=== PATIENT | female | born 1990 | race African-American/Black ===

== ENCOUNTER 2020-08-13 16:07 | Outpatient (REF) | payer MEDICAID, SELFPAY | END 2020-08-13 16:08 | disposition home or self-care (01) | LOC: HO.SCI 16:07 | PROVIDERS: Visit Provider Internal Medicine | DX: Z13.89 Encounter for screening for other disorder (principal) ==

== ENCOUNTER 2020-08-20 11:16 | Outpatient (REF) | payer MEDICAID, SELFPAY ==
--- NOTE | ~2020-08-20 | US_ITS ---
EXAMINATION: ULTRASOUND OF THE PELVIS CLINICAL INFORMATION: Irregular menses.. COMPARISON: None. TECHNIQUE: Transabdominal and transvaginal pelvic ultrasound. A transvaginal study was performed in addition to the transabdominal study which did not yield an adequate examination of the uterus and ovaries due to superimposed distended gas-filled loops of bowel. FINDINGS: The uterus is normal in size and appearance, measuring 11.8 x 4.5 x 5 cm longitudinally, anteroposteriorly and transversely. The endometrial stripe thickness is prominent, measuring 1.6 cm in thickness. No focal myometrial mass is seen. Nabothian cysts are noted. Additional cysts are seen in the region of the vagina, possibly Jyoti duct cyst. The ovaries bilaterally are visualized and appear normal, with the right ovary measuring 3.3 x 1.7 x 2.7 cm and the left ovary measuring 3.1 x 2.5 x 2.9 cm. Multiple small follicles noted. No adnexal mass or free fluid collection seen. US/US pelvic complete IMPRESSION: Somewhat prominent endometrial stripe. Correlate with phase of cycle. No heterogeneity. Multiple small follicles of the ovaries. Correlate for PCOS.
--- NOTE | ~2020-08-20 | US_ITS ---
EXAMINATION: ULTRASOUND OF THE PELVIS CLINICAL INFORMATION: Irregular menses.. COMPARISON: None. TECHNIQUE: Transabdominal and transvaginal pelvic ultrasound. A transvaginal study was performed in addition to the transabdominal study which did not yield an adequate examination of the uterus and ovaries due to superimposed distended gas-filled loops of bowel. FINDINGS: The uterus is normal in size and appearance, measuring 11.8 x 4.5 x 5 cm longitudinally, anteroposteriorly and transversely. The endometrial stripe thickness is prominent, measuring 1.6 cm in thickness. No focal myometrial mass is seen. Nabothian cysts are noted. Additional cysts are seen in the region of the vagina, possibly Jyoti duct cyst. The ovaries bilaterally are visualized and appear normal, with the right ovary measuring 3.3 x 1.7 x 2.7 cm and the left ovary measuring 3.1 x 2.5 x 2.9 cm. Multiple small follicles noted. No adnexal mass or free fluid collection seen. US/US transvaginal IMPRESSION: Somewhat prominent endometrial stripe. Correlate with phase of cycle. No heterogeneity. Multiple small follicles of the ovaries. Correlate for PCOS.
== END 2020-08-20 11:17 | disposition home or self-care (01) ==
LOC: HO.US 11:16
PROVIDERS: PCP Internal Medicine; Visit Provider Internal Medicine
DX: N92.1 Excessive and frequent menstruation with irregular cycle (principal)
CPT/HCPCS: 76830; 76856

== ENCOUNTER 2021-04-08 11:21 | Outpatient (REF) | payer MEDICAID, SELFPAY ==
--- NOTE | ~2021-04-08 | XR_ITS ---
EXAMINATION: XR SHOULDER, LEFT CLINICAL INFORMATION: Left shoulder pain COMPARISON: None TECHNIQUE: AP external rotation, Grashey, scapular Y, and axillary views of the left shoulder. FINDINGS: The bones and soft tissues are normal. No fracture. Glenohumeral and acromioclavicular alignment is anatomic with normal joint space. No abnormal soft tissue calcifications. Incidental note is made of a small left cervical rib. Visualized left hemithorax is unremarkable. XR/XR shoulder LT min 2V IMPRESSION: No acute or significant radiographic abnormality in the left shoulder. Small left cervical rib.
== END 2021-04-08 11:22 | disposition home or self-care (01) ==
LOC: HO.XRAY 11:21
PROVIDERS: PCP Internal Medicine; Visit Provider Internal Medicine
DX: M25.512 Pain in left shoulder (principal)
CPT/HCPCS: 73030

== ENCOUNTER 2022-08-04 05:47 | Outpatient (REF) | payer MEDICAID, SELFPAY | END 2022-08-04 05:48 | disposition home or self-care (01) | LOC: HO.HOSX 05:47 | PROVIDERS: Visit Provider Physician Assistant | DX: Z13.89 Encounter for screening for other disorder (principal) ==

== ENCOUNTER → 2022-09-08 12:34 | Outpatient (BNVA) | payer MEDICAID, SELFPAY | PROVIDERS: PCP Internal Medicine; Visit Provider Physician Assistant | DX: M75.102 Unspecified rotator cuff tear or rupture of left shoulder, not specified as traumatic (principal) | CPT/HCPCS: 99202 ==

== ENCOUNTER → 2022-10-13 14:47 | Outpatient (BNVA) | payer MEDICAID, SELFPAY | PROVIDERS: PCP Internal Medicine; Visit Provider Physician Assistant Surgical ==

== ENCOUNTER → 2022-10-19 08:34 | Outpatient (BNVA) | payer MEDICAID, SELFPAY | PROVIDERS: PCP Internal Medicine; Visit Provider Surgery ==

== ENCOUNTER 2022-10-21 10:21 | Outpatient (REF) | payer MEDICAID, SELFPAY ==
--- NOTE | ~2022-10-21 | MR_ITS ---
EXAMINATION: MR SHOULDER WITHOUT CONTRAST, LEFT CLINICAL INFORMATION: Left shoulder pain and decreased range of motion. Evaluate for rotator cuff tendon tear. COMPARISON: Left shoulder radiographs dated 04/08/2021. TECHNIQUE: Multisequence MR imaging of the left shoulder was obtained without contrast on a high-field strength scanner. FINDINGS: ROTATOR CUFF: Mildly increased T2 signal within the distal supraspinatus tendon, consistent with mild tendinosis. No measurable rotator cuff tendon tear. No muscle atrophy or fatty infiltration. BICEPS: Small amount of fluid within the proximal long head biceps tendon sheath which could represent mild tenosynovitis. No measurable tendon tear. CORACOACROMIAL ARCH: The undersurface of the acromion is minimally curved with no subacromial spur. The acromioclavicular joint is normal. Small amount of fluid and edema within the subacromial subdeltoid bursa, consistent mild bursitis. LABRUM/CAPSULE: No displaced labral tear. Mild thickening and edema of the anteroinferior joint capsule which can be seen in the setting of adhesive capsulitis. GLENOHUMERAL JOINT/MARROW: Intact articular cartilage. No acute osseous injury. Trace joint effusion. MR/MR shoulder LT wo con IMPRESSION: 1. Mild supraspinatus tendinosis without a measurable rotator cuff tendon tear. 2. Mild proximal long head biceps tenosynovitis without a measurable tendon tear. 3. Mild subacromial subdeltoid bursitis. 4. Mild thickening and edema of the anteroinferior joint capsule which can be seen in the setting of adhesive capsulitis. 5. Trace glenohumeral joint effusion.
--- NOTE | ~2022-10-21 | XR_ITS ---
EXAMINATION: XR CHEST CLINICAL INFORMATION: Morbid obesity COMPARISON: None available. TECHNIQUE: 2 views of the chest were obtained. FINDINGS: No significant abnormality is noted involving the heart, lungs, mediastinum, bony thorax or soft tissues. XR/XR chest 2V IMPRESSION: Unremarkable examination.
--- NOTE | 2022-10-21 10:27 | ECG_ITS ---
Test Reason : OBESITY Blood Pressure : / mmHG Vent. Rate : 095 BPM Atrial Rate : 095 BPM P-R Int : 134 ms QRS Dur : 074 ms QT Int : 348 ms P-R-T Axes : 062 044 018 degrees QTc Int : 437 ms Normal sinus rhythm Normal ECG No previous ECGs available Referred By: Alex Tyler Electronically Signed By:GIGI TENA MD
[2022-10-21 10:37] LABS: MANUAL DIFF FLAG NO
[2022-10-21 11:02] LABS: Basophils Percent Auto 0.2 % (0-2); Eosinophils Percent Auto 0.9 % (0-4); Hematocrit 41.4 % (37.0-47.0); Hemoglobin 13.1 g/dl (12.0-16.0); Imm Gran Abs Auto 0.01 X10*3/uL (0.00-0.03); Imm Gran Pct Auto 0.2 % (0.0-0.4); Lymphocytes Absolute Auto 1.7 X10*3/uL (1.2-4.9); Lymphocytes Percent Auto 37.1 % (20-40); Mean Corpuscular HGB Conc 31.6 g/dl (31.0-35.0); Mean Corpuscular Hemoglobin 24.5 pg (27.0-33.0); Mean Corpuscular Volume 77.4 fL (80.0-98.0); Monocytes Absolute Auto 0.4 X10*3/uL (0.1-1.2); Monocytes Percent Auto 8.4 % (2-11); Neutrophils Absolute Auto 2.4 x10*3/uL (2.0-8.3); Neutrophils Percent Auto 53.2 % (45-73); Platelet Count 271 X10*3/uL (160-400); Red Blood Count 5.35 X10*6/uL (4.20-5.50); Red Cell Distribution Width 15.6 % (11.0-16.0); White Blood Count 4.5 X10*3/uL (4.8-10.8)
[2022-10-21 11:17] LABS: Estimated Average Glucose 100 mg/dL; Hemoglobin A1c % 5.1 %
[2022-10-21 12:06] LABS: Alanine Aminotransferase 40 U/L (0-31); Albumin Level 4.5 g/dL (3.5-5.0); Alkaline Phosphatase 94 U/L (39-117); Anion Gap 13 (12-20); Aspartate Amino Transferase 28 U/L (5-31); Bilirubin Total 0.5 mg/dL (0.0-1.0); Blood Urea Nitrogen 15 mg/dL (9-16); C Reactive Protein 1.17 mg/dL (< or = 0.50); Calcium 9.6 mg/dL (8.4-10.2); Carbon Dioxide 25 mmol/L (22-29); Chloride 103 mmol/L (96-108); Cholesterol 249 mg/dL; Estimated Glomerular Filt Rate > 60; Glucose Random 81 mg/dL (60-115); HDL Cholesterol 44 mg/dL; Iron 169 mcg/dL (30-160); LDL Cholesterol Calculated 174 mg/dl; Percent Iron Saturation 42 % (15-50); Potassium 4.2 mmol/L (3.3-5.1); Sodium 137 mmol/L (135-145); Total Iron Binding Capacity 404 mcg/dL (228-428); Total Protein 7.9 g/dL (6.5-8.0); Triglycerides 157 mg/dL; Unsaturated Iron Binding 235 ug/dL
[2022-10-21 12:22] LABS: Ferritin 15 ng/mL (10-122); Folate 17.6 ng/mL (> or = 4.0); Insulin 16 uU/mL (2-29); Vitamin B12 878 pg/mL (200-900); Vitamin D 25-OH Total 41.1 ng/mL (>30)
[2022-10-24 14:18] LABS: Calcium (PTHI) 9.7 mg/dL (8.6-10.2); PTHI 48 pg/mL (16-77)
== END 2022-10-21 10:22 | disposition home or self-care (01) ==
LOC: HO.MRI 10:21
PROVIDERS: Absent Provider Surgery; PCP Internal Medicine; Visit Provider Physician Assistant
DX: M75.102 Unspecified rotator cuff tear or rupture of left shoulder, not specified as traumatic (principal); E28.2 Polycystic ovarian syndrome; E66.01 Morbid (severe) obesity due to excess calories
CPT/HCPCS: 36415; 71046; 73221; 80053; 80061; 82306; 82607; 82728; 82746; 83036; 83525; 83540; 83970; 84425; 84443; 84590; 85025; 86140; 93005

== ENCOUNTER 2022-10-31 07:53 | Outpatient (REF) | payer MEDICAID, SELFPAY ==
[2022-11-03 11:37] LABS: H Pylori Breath Test Positive (Negative)
== END 2022-10-31 07:54 | disposition home or self-care (01) ==
LOC: HO.LNP 07:53
PROVIDERS: Visit Provider Surgery
DX: E66.01 Morbid (severe) obesity due to excess calories (principal); E28.2 Polycystic ovarian syndrome
CPT/HCPCS: 83013

== ENCOUNTER 2022-10-31 09:57 | Outpatient (REF) | payer MEDICAID, SELFPAY ==
[2022-11-05 00:14] LABS: Zinc 73 mcg/dL (60-130)
[2022-11-05 08:14] LABS: Vitamin B1 9 nmol/L (8-30)
[2022-11-06 01:09] LABS: Vitamin A 42 mcg/dL (38-98)
== END 2022-10-31 09:58 | disposition home or self-care (01) ==
LOC: HO.LAB 09:57
PROVIDERS: Surgery; PCP Internal Medicine; Visit Provider Physician Assistant Surgical
DX: M75.02 Adhesive capsulitis of left shoulder (principal); E66.01 Morbid (severe) obesity due to excess calories; E28.2 Polycystic ovarian syndrome
CPT/HCPCS: 20610; 36415; 84425; 84590; 84630; 99211; 99212; J1040

== ENCOUNTER 2022-11-04 10:02 | Outpatient (REF) | payer MEDICAID, SELFPAY ==
--- NOTE | ~2022-11-04 | US_ITS ---
EXAMINATION: US COMPLETE ABDOMEN WITH LIVER ELASTOGRAPHY CLINICAL INFORMATION: Obesity COMPARISON: None available. TECHNIQUE: Real-time imaging of the abdominal viscera. Noninvasive ultrasound liver fibrosis assessment is performed using Norma ElastPQ point quantification shear wave elastography (2D-SWE) with a C5-2 MHz transducer. Multiple elastography samples are obtained. FINDINGS: PANCREAS: Not well visualized due to bowel gas ABDOMINAL AORTA: The proximal, middle, and distal aortic segments are normal in caliber. INFERIOR VENA CAVA: Visualized portions are normal. LIVER: Liver echotexture is increased. Liver is normal in size and contour. No focal lesion or intrahepatic biliary duct dilatation. The right lobe measures 16 cm in length. The left lobe measures 10.5 cm in length. Portal flow is normal/hepatopedal Shear wave liver elastography median stiffness is 1.5 m/s (reference: normal median stiffness is 1.3 m/s or less). IQR/median stiffness to assess sampling precision is 0.05 (reference: good quality data set is IQR/median stiffness of 0.15 or less). GALLBLADDER: Normal. The gallbladder is physiologically distended without evidence of stones, sludge, polyps, wall thickening or pericholecystic fluid. COMMON BILE DUCT: Normal in caliber measuring 0.3 cm in diameter. RIGHT KIDNEY: Normal. No hydronephrosis. No renal calculi or focal parenchymal lesions. The kidney measures 11.6 cm in maximum dimension. LEFT KIDNEY: Normal. No hydronephrosis. No renal calculi or focal parenchymal lesions. The kidney measures 11.5 cm in maximum dimension. SPLEEN: Normal. The spleen measures 11.4 cm in maximum dimension. FREE FLUID: None. US/US abdomen comp w elastography IMPRESSION: 1. Impression: Echogenic liver. Limited visualization of the pancreas. 2. Liver elastography: Adequate liver sampling. In the absence of other known clinical signs, rules out compensated advanced chronic liver disease. REFERENCE: Society of Radiologists in Ultrasound Liver Stiffness Thresholds (2020): LIVER STIFFNESS THRESHOLDS: *Liver Stiffness equal or less than 1.3 m/s: High probability of being normal. *Liver Stiffness less than 1.7 m/s: In the absence of other known clinical signs, rules out compensated advanced chronic liver disease. *Liver Stiffness 1.7-2.1 m/s: Suggestive of compensated advanced chronic liver disease but need further test for confirmation. *Liver Stiffness over 2.1 m/s: Rules in compensated advanced chronic liver disease. *Liver Stiffness over 2.4 m/s: Suggestive of clinically significant portal hypertension. QUALITY OF DATA SET: *IQR/Median value equal or less than 0.15 implies a quality data set. *IQR/Median value over 0.15 implies a poor quality data set. SIGNIFICANT CHANGE FROM PRIOR EXAM: Significant change if liver stiffness measurement is 10% or greater from prior exam. OTHER CONSIDERATIONS: The stage of liver fibrosis may be overestimated in the setting of acute hepatitis, liver inflammation, elevated liver function tests, hepatic vascular congestion, obstructive cholestasis, non-fasting state, and infiltrative diseases such as amyloidosis and lymphoma. In some patients with NAFLD, the liver stiffness thresholds for compensated advanced chronic liver disease may be lower. In causes other than viral hepatitis and NAFLD, liver stiffness thresholds are not well established.
== END 2022-11-04 10:03 | disposition home or self-care (01) ==
LOC: HO.US 10:02
PROVIDERS: PCP Internal Medicine; Visit Provider Surgery
DX: E66.01 Morbid (severe) obesity due to excess calories (principal); E28.2 Polycystic ovarian syndrome
CPT/HCPCS: 76705; 76981

== ENCOUNTER → 2022-11-16 14:36 | Outpatient (BNVA) | payer MEDICAID, SELFPAY | PROVIDERS: PCP Internal Medicine; Visit Provider Dietitian, Registered | DX: E66.01 Morbid (severe) obesity due to excess calories (principal); Z71.3 Dietary counseling and surveillance | CPT/HCPCS: 97802 ==

== ENCOUNTER → 2022-11-18 07:51 | Outpatient (BNVA) | payer MEDICAID, SELFPAY | PROVIDERS: PCP Internal Medicine; Visit Provider Surgery ==

== ENCOUNTER 2022-11-28 16:11 | Outpatient (AMB) | payer OTHER, SELFPAY ==
--- NOTE | 2022-11-28 16:12 | MHC.WMTHER ---
Intake Intake Visit Reasons: VIDEO BH Intake Allergies No Known Allergies Allergy (Verified 11/16/22 15:25) PFSH Medical History Anxiety Depression Insomnia Morbid obesity PCOS (polycystic ovarian syndrome) Surgical History Hx of tubal ligation Family History Mother Cancer Father No problems noted. Daughter No problems noted. Son ADHD Son No problems noted. Son No problems noted. 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 Pt reported ongoing medical issues impacting her weight and mental health, also she is currently being treated for depression. Patient sees a therapist every 3 weeks and prescriber every 6 weeks. She reported to be stable and denies any hx of Substance abuse, suicidal ideation and/or self/other-harm. PT disclosed she had a hard time in 2019 that lead her to be on a 72-hour mental health watch due to a depressive crisis , however she was not in need of higher level of care. Pt denies any Hx with emotional eating besides some cravings around the time of her period. Current scores from Binge eating sclae showed minimal risk for binge eating behavior; scores from PHQ-9 did not showed active symptoms of depression and per assessment pt seemed to be stable and mental status exam within normal limits. Pt is cleared from the mental health stand point and there is no need for f/up sessions unless PT feels she needs additional support. Presenting Concerns Referral Source WMP Provider Reason for referral Completion of behavioral health assessment as part of process for weight-loss surgery. Precipitating Event Obesity, PCOS, low energy. Living Situation Current Living Situation Rent At risk of losing current housing? No Satisfied with current living situation? Yes Comments PT lives with and 4 children. Food/Weight/Diet Expectations of change PT wants to be at her healthy weight and able to be active and have energy again. History/Relationship with food Pt reported she used to skip breakfast most of the time, tends to have her first meal around 11am. Dinner is usually style, and she usually has more than 1 carb on meals. PT reports she has always had a good relationship with food, denies any hx or concern with emotional/stress-eating besides regular sweet cravings around her period. History/Relationship with weight PT reports she was very athletic and at a healthy weight as a child/teen. After having first child, she gained some weight. But, with each she has gained weight and with diet/exercise she has was able to loss weight and being in between 150-175Lbs until 2019. In 2019 she moved here from [place] and her weight was about 180Lbs, but months after she started gaining weight and has not been able to loss it. Recently she has been diagnosed with PCOS and this has been a big contributor to her weight gain. History/Relationship with dieting Exercise, dining room tables set up attendant counseling, ketto-diet, [id number]. Binge Eating Do you frequently eat large amounts of food in short periods of time, not feeling physically hungry? No Do you feel out of control when you eat a large amount of food in a short period of time? No Do you eat large amounts of food rapidly and typically alone? No Night Eating Do you wake up at least once during the night to eat? No If you wake up in the night, do you find that it is necessary to eat something in order to fall back asleep? No Do you have little or no appetite in the morning and feel very hungry in the evening, often overeating between dinner and when you go to bed? No Social History Family history and relationship 10 years ago to the father of 3 youngest children. She has 4 children. Most of her family is in [place]. She's only child. Mom is alive, dad in 2010. She has a close relationship with her mom. 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 15, 10, 8 and 7 years old each. Developmental history and status None. Social support , children. 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 Voodoo/Spirituality Orthodoxy but doesn;t practice. Cultural/Ethnic information . From [place]. [place]. Legal Involvement and History Current or historical involvement with the legal system? None. Education Highest grade completed College degree in [employer] administration. Preferred learning style Written, Learn by doing and Visual Currently enrolled in educational program? No Interested in further educational program? Yes (Will start Master's degree upcoming fall) Educational Interests/Skills Management. 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 No Meaningful activities Family activities, read, dance, gym. Financial Situation Describe current financial situation Comfortable and Occasional struggle Financial assistance? [employer] [place] Service Service? No Mental Health and Addiction Treatment Current/Past substance abuse? No Current/Past addictive behavior concerns? No Psychiatric history PT reported she currently attends therapy every 3 weeks and sees a psych. prescriber every 2 months. She is diagnosed with depression, but she is not aware of full diagnosis. Denied any hx of SI, Self-harm/other-harm. However, reported she was in a 72 hour watch for MH risk/safety concern in November/2021. Currently, she feels stable and doing well with current meds. Medical and Physical Health Summary Additional Medical History not covered in history None reported Sexual History concerns None reported Physical exam in the last year? Yes Pain Screening Current pain? Yes Pain in the last few months? Yes Comments Frozen shoulder, painful periods. Medications Is the patient compliant with medications? Yes Does the patient have Batrlett Guardian in place? Not applicable Does the patient use complimentary health approaches? No Trauma/Abuse History History of trauma? No Questionnaires PHQ-9 Over the last 2 weeks, how often have you been bothered by any of the following problems? 1. Little interest or pleasure in doing things: not at all 2. Feeling down, depressed, or hopeless: not at all 3. Trouble falling or staying asleep, or sleeping too much: not at all 4. Feeling tired or having little energy: not at all 5. Poor appetite or overeating: not at all 6. Feeling bad about yourself - or that you are a failure or have let yourself or your family down: not at all 7. Trouble concentrating on things, such as reading the newspaper or watching television: not at all 8. Moving or speaking so slowly that other people could have noticed. Or the opposite - being so fidgety or restless that you have been moving around a lot more than usual: not at all 9. Thoughts that you would be better off or of hurting yourself in some way: not at all Total score: 0 Depression Screening Interpretation: Negative Source: Developed by Drs. José Luis Edgar, Etelvina Vee, Luis Dodd and colleagues, with an educational krzysztof from [employer]. Binge Eating Scale Group 1 A. I don't feel self-conscious about my wt. or body size when I'm with others. B. I feel concerned about how I look to others, but it normally does not make me fell disappointed with myself C. I do get self-conscious about my appearance and wt. which makes me feel disappointed in myself. D. I feel very self-conscious about my wt. and frequently I feel intense shame and disgust for myself. I try to avoid social contacts because of my self-consciousness. Response Group 1: C Group 2 A. I don't have any difficulty eating slowly in the proper manner. B. Although I seem to gobble down foods, I don't end up feeling stuffed because of eating to much. C. At times, I tend to eat quickly and then, I feel uncomfortably full afterwards. D. I have the habit of bolting down my food, without really chewing it. When this happens I usually feel uncomfortably stuffed because I've eaten to much. Response Group 2: A Group 3 A. I feel capable to control my eating urges when I want to. B. I feel like I have failed to control my eating more than the average person. C. I feel utterly helpless when it comes to feeling in control of my eating urges. D. Because I feel so helpless about controlling my eating I have become very desperate about trying to get control. Response Group 3: B Group 4 A. I don't have the habit of eating when I'm bored. B. I sometimes eat when I'm bored, but often I'm able to get busy and get my mind off food. C. I have a regular habit of eating when I'm bored, but occasionally, I can use some other activity to get my mind off eating. D. I have a strong habit of eating when I'm bored. Nothing seems to help me breath the habit. Response Group 4: B Group 5 A. I'm usually physically hungry when I eat something. B. Occasionally, I eat something on impulse even though I really am not hungry. C. I have the regular habit of eating foods, that I might not really enjoy, to satisfy a hungry feeling even though physically, I don't need the food. D. Although I'm not physically hungry, I get a hungry feeling in my mouth that only seems to be satisfied when I eat a food, like sandwich, that fills my mouth. Sometimes, when I eat the food to satisfy my mouth hunger, I then spit the food out so I won't gain weight. Response Group 5: A Group 6 A. I don't feel any guilt or self-hate after I overeat. B. After I overeat, occasionally I feel guilt or self-hate. C. Almost all the time I experience strong guilt or self-hate after I overeat. Response Group 6: C Group 7 A. I don't lose total control of my eating when dieting even after periods when I overeat. B. Sometimes when I eat a forbidden food on a diet, I feel like I blew it and eat even more. C. Frequently, I have the habit of saying to myself, I've blown it now, why not go all the way, when I overeat on a diet. When that happens I eat more. D. I have a regular habit of starting a strict diets for myself but I break the diets by going on an eating binge. My life seems to be either a feast or famine. Response Group 7: A Group 8 A. I rarely eat so much food that I feel uncomfortably stuffed afterwards. B. Usually about once a month, I each such a quantity of food, I end up feeling very stuffed. C. I have regular periods during the month when I eat large amounts of food, either at mealtime or at snacks. D. I eat so much food that I regularly feel quite uncomfortable after eating and sometimes a bit nauseous. Response Group 8: B Group 9 A. My level of calorie intake does not go up very high or go down very low on a regular basis. B. Sometimes after I overeat, I will try to reduce my caloric intake to almost nothing to compensate for the excess calories I've eaten. C. I have a regular habit of overeating during the night. It seems that my routine is not to be hungry in the morning but overeat in the evening. D. In my adult years, I have had week-long periods where I practically starve myself. This follows periods when I overeat. It seems I live a life of either feast or famine. Response Group 9: C Group 10 A. I usually am able to stop eating when I want to. I know when enough is enough. B. Every so often, I experience a compulsion to eat which I can't seem to control. C. Frequently, I experience strong urges to eat which I seem unable to control, but at other times I can control my eating urges. D. I feel incapable of controlling urges to eat. I have a fear of not being able to stop eating voluntarily. Response Group 10: A Group 11 A. I don't have any problem stopping eating when I feel full. B. I usually can stop eating when I feel full but occasionally overeat leaving me feeling uncomfortably stuffed. C. I have a problem stopping eating once I start and usually I feel uncomfortably stuffed after I eat a meal. D. Because I have a problem not being able to stop eating when I want, I sometimes have to induce vomiting to relieve my stuffed feeling. Response Group 11: B Group 12 A. I seem to eat just as much when I'm with others, Family social gatherings as when I'm by myself. B. Sometimes, when I'm with other persons, I don't eat as much as I want to eat because I'm self-conscious about my eating. C. Frequently, I eat only a small amount of food when others are present, because I'm very embarrassed about my eating. D. I feel so ashamed about overeating that I pick times to overeat when I know no one will see me. I feel like a closet eater. Response Group 12: A Group 13 A. I eat three meals a day with only an occasional between meal snack. B. I eat 3 meals a day, but I also normally snack between meals. C. When I am snacking heavily, I get in the habit of skipping regular meals. D. There are regular periods when I seem to be continually eating, with no planned meals. Response Group 13: C Group 14 A. I don't think much about trying to control unwanted eating urges. B. At least some of the time, I feel my thoughts are pre-occupied with trying to control my eating urges. C. I feel that frequently I spend much time thinking about how much I ate or about trying not to eat anymore. D. It seems to me that most of my waking hours are pre-occupied by thoughts about eating or not eating. I feel like I'm constantly struggling not to eat. Response Group 14: A Group 15 A. I don't think about food a great deal. B. I have strong craving for food but they last only for brief periods of time. C. I have days when I can't seem to think about anything else but food. D. Most of my days seem to be pre-occupied with thoughts about food. I feel like I live to eat. Response Group 15: B Group 16 A. I usually know whether or not I'm physically hungry. I take the right portion of food to satisfy me. B. Occasionally, I feel uncertain about knowing whether or not I'm physically hungry. A these times it's hard to know how much food I should take to satisfy me. C. Even though I might know how many calories I should eat, I don't have any idea what is a normal amount of food for me. 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 Client is cleared and there is no need for follow up. Clinician has advised client about available resources if ever in need to access additional support and has encourage client to participate in post-op groups. Telehealth Telehealth Location of provider rendering services: other (Home office. [place], [place] Location of patient: address on file Patient Identification confirmed using: Name, : Yes Telehealth method: video Patient verbally consented to treatment: Yes Patient verbally consented to billing insurance company: Yes Patient informed of any privacy concerns related to visit: Yes Minutes spent on Phone/Video with Pt.: 60 Coding Level of Care Code New Pt Tele Psy Diag Eval (43561) Patient Type New Diagnoses Depression F33.9 Depression Type: major depressive disorder Major depression recurrence: recurrent Active/Remission status: remission status unspecified Time Spent (min) 60
== END 2022-11-28 18:07 | disposition home or self-care (01) ==
LOC: HO.HBST 16:11
PROVIDERS: PCP Internal Medicine; Visit Provider Counselor Mental Health
DX: F33.2 Major depressive disorder, recurrent severe without psychotic features (principal)
CPT/HCPCS: 90837

== ENCOUNTER → 2022-11-28 16:11 | Outpatient (BNVA) | payer MEDICAID, SELFPAY | PROVIDERS: PCP Internal Medicine; Visit Provider Counselor Mental Health ==

== ENCOUNTER → 2022-12-09 08:03 | Outpatient (BNVA) | payer MEDICAID, SELFPAY | PROVIDERS: PCP Internal Medicine; Visit Provider Physician Assistant Surgical | DX: Z11.0 Encounter for screening for intestinal infectious diseases (principal) | CPT/HCPCS: 99211 ==

== ENCOUNTER 2022-12-15 10:59 | Outpatient (AMB) | payer MEDICAID, SELFPAY ==
--- NOTE | 2022-12-15 10:38 | A.OFFVIS_ITS ---
Intake VS Expanded 12/15/22 10:40 Height 5 ft 1 in Weight 202 lb 9.6 oz BMI 38.3 Intake Visit Reasons: VIDEO f/u SWL Cyber Incident Handler Required: No Allergies No Known Allergies Allergy (Verified 11/16/22 15:25) Medication List - Last Reconciled 12/15/22 by CIRA Hooper cholecalciferol (vitamin D3) 50 mcg PO DAILY drospirenone-ethinyl estradiol 3-0.02 mg (Yeimy (28)) 1 tab PO QAM ferrous sulfate 325 mg PO Q OTHER DAY metformin ER 500 mg PO BID mirtazapine 7.5 - 15 mg PO BEDTIME PRN venlafaxine ER 75 mg PO QAM HPI HPI Comments History of Present Illness Details 32 yo female returns for Pre-Op care Initial weight on 10/19/22 was 214 pounds and a BMI on 40.4 Weight today is 202.6 pound with a BMI of 38.3 Weight loss 11.4 pounds 5.3 % TBWL. She is undergoing PT for a left shoulder adhesive capsulitis. She states there have been a few days of challenging meal plan due to double shifts at work. Meal plan: one Orgain shake (QUARTER scoop in 8oz almond milk), one more Orgain protein shake (HALF scoop in 8oz low fat unsweetened almond milk each) at 7am-9am and 10am-12pm, 2 Zone Perfect protein bars at 1pm-3pm, and 4pm-6pm, dinner at 7pm (8 forks of protein and 8 forks of salad/vegetables) and one more protein bar after dinner at 8pm-10pm exercise plan: treadmill, 4 days per week, speed 3 with incline 2-7, 480-510 calories. [facility] Medical History Anxiety Depression Insomnia Morbid obesity PCOS (polycystic ovarian syndrome) Surgical History Hx of tubal ligation Family History Mother Cancer Father No problems noted. Daughter No problems noted. Son ADHD Son No problems noted. Son No problems noted. Social History Alcohol intake: current Alcohol intake frequency: holidays/special occasions only Patient Tobacco Use Status: Never used Tobacco Current occupational status: employed Current occupation: [employer] Review of Systems Const All systems reviewed & are unremarkable except as noted in HPI and below Assessment & Plan Assessment & Plan (1) Obesity: Code(s): E66.9 - Obesity, unspecified Plan: Encouraged to increase exercise by one day Change meal plan to one Orgain shake (QUARTER scoop in 8oz almond milk), one more Orgain protein shake (HALF scoop in 8oz low fat unsweetened almond milk each) at 7am-9am and 10am-12pm, 2 Zone Perfect protein bars at 1pm-3pm, and 4pm-6pm, dinner at 7pm (8 forks of protein and 8 forks of salad/vegetables) Reminded of upcoming appointments (2) H. pylori infection: Code(s): A04.8 - Other specified bacterial intestinal infections Plan: Treated Retested 12/09/22 - Negative Telehealth Telehealth Location of provider rendering services: practice address Location of patient: address on file Patient Identification confirmed using: Name, : Yes Telehealth method: video Patient verbally consented to treatment: Yes Patient verbally consented to billing insurance company: Yes Patient informed of any privacy concerns related to visit: Yes Minutes spent on Phone/Video with Pt.: 15 Coding Level of Care Code Tele Est Pt Level 3 (43607) Diagnoses Obesity E66.9 H. pylori infection A04.8 Time Spent (min) 20
[2022-12-15 10:40] VITALS: BMI 38.3
== END 2022-12-15 11:00 | disposition home or self-care (01) ==
LOC: HO.HBS 10:59
PROVIDERS: PCP Internal Medicine; Visit Provider Physician Assistant Surgical
DX: E66.9 Obesity, unspecified (principal); A04.8 Other specified bacterial intestinal infections
CPT/HCPCS: 99213

== ENCOUNTER → 2022-12-15 10:59 | Outpatient (BNVA) | payer MEDICAID, SELFPAY | PROVIDERS: PCP Internal Medicine; Visit Provider Physician Assistant Surgical | DX: E66.9 Obesity, unspecified (principal); A04.8 Other specified bacterial intestinal infections; Z68.38 Body mass index [BMI] 38.0-38.9, adult | CPT/HCPCS: 99213 ==

== ENCOUNTER 2022-12-20 07:00 | Outpatient (RCR) | payer MEDICAID, SELFPAY ==
--- NOTE | 2022-12-02 13:16 | MHC.PT.EP ---
[facility] [place] Office [place] Office [place] Office [address] [phone] F: [phone] F: [phone] F: [phone] F: [phone] Physical Therapy Plan of Care Date of Evaluation: Date of Surgery: Diagnosis: ADHESIVE CAPSULITIS LEFT SHOULDER Assessment: 32 YO FEMALE REF TO PT FOR LEFT SH ADHESIVE CAPSULITIS, PROGRESSIVE Lt SH PAIN EXACERB AFTER SUSTAINED POSITIONING FOR A TATTOO IN 2020. 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 HER SXS ARE WORSE AT NIGHT, WITH LIFTING OBJECTS, INCR USE OF LEFT UE W ADLs, AND REACHING POSTERIORLY. OBJECTIVE FINDINGS INCLUDE: MILD AROM DEFICITS Lt SH, DECR POSTURAL AWARENESS, END RANGE ALDO SH TIGHTNESS , DECR POST RC/ SCAP MM STRENGTH, AND (+) PAIN AND TISSUE TENSION ALDO UT/ Lt POST RC AND CERV PS MM. FUNCTIONALLY, Pt HAS DIFFIC SLEEPING, W ADLs / WORK TASKS REQ CARRYING OR INCR EFFORT W LEFT UE. Pt WOULD BENEFIT FROM PT TO ADDRESS THE ABOVE FINDINGS , PAIN MGMT, AND DEV A HEP/ SELF-SX MGMT PROGRAM. Frequency and Duration: The patient will be seen 2 x WK x 5 WKS Short Term Goals: *Pt'S Lt SH PAIN DECR TO 2-3/10 W REG ADLs *Pt INDEP SELF-CORRECT POSTURE TO REDUCE SH MECH STRESS *Pt DEMON IMPROVED MID/LOWER TRAP/ POST RC/SCAP MM ACTIV Group Home Goals: *Pt INDEP HEP PROGR AND SELF-SX MGMT STRATEGIES FOR Lt SH Pt ABLE TO RESUME REG ADLs , IMPROVED SPADI SCORE (99/130 AT EVAL) *Pt ACHIEVE WFL STRENGTH AND AROM IN Lt SH COMPLEX Treatment Plan: Modalities to reduce pain, spasms and effusion. Manual therapy to restore motion and function. Therapeutic exercise to improve strength and flexibility. Neuromuscular re-education for posture and balance. Therapeutic activities to return to functional activities of daily living. Electronically signed by: ROSCOE LANDERS,PT Please sign and return to therapist. Thank you for your referral.
[2022-12-10 13:18] LABS: H Pylori Breath Test Negative (Negative)
--- NOTE | 2023-03-20 08:45 | MHC.PT.DC ---
[facility] [place] Office [place] Office [place] Office [address] Matt Goode 140 [facility] [phone] F: [phone] F: [phone] F: [phone] F: [phone] Physical Therapy Discharge Report Diagnosis: ADHESIVE CAPSULITIS LEFT SHOULDER Date of Surgery: Date of Evaluation: 12/02/22 Date of Discharge: 03/20/23 Treatments to Date: 6 Cancellations to Date: 2 No Shows to Date: 3 Discharge Status: Improved Function Patient Elected to Stop Visit Non-compliance Discharge Summary: THE Pt DEMON IMPROVED POSTURAL AWARENESS AND ABILITY TO SELF-CORRECT. SHE HAS A HEP TO ADDRESS HER LEFT SH SXS - SHE DID MAKE SOME PROGRESS, HOWEVER, DUE TO INCONSISTENT ATTENDANCE, A FORMAL REASSESSMENT WAS NOT PERFORMED. Electronically signed by: ROSCOE LANDERS,PT Please sign and return to therapist. Thank you for your referral.
== END 2023-03-20 08:44 | disposition home or self-care (01) ==
LOC: HO.PT 07:00
PROVIDERS: Physician Assistant Surgical; PCP Internal Medicine; Visit Provider Physician Assistant
DX: M75.02 Adhesive capsulitis of left shoulder (principal)
CPT/HCPCS: 36415; 83013; 97035; 97110; 97140; 97162; 97530

== ENCOUNTER 2023-01-06 08:10 | Outpatient (AMB) | payer MEDICAID, SELFPAY ==
--- NOTE | 2023-01-06 09:59 | A.OFFVIS_ITS ---
Intake VS Expanded 01/06/23 10:05 Height 5 ft 1 in Weight 209 lb 6 oz BMI 39.6 Body Fat 71 Body Fat Percentage 33.9 Free Fat Mass 138.6 Visceral Mass 21 Water Mass 95.1 BMR 1,737 Intake Visit Reasons: TV Follow Up SWL Allergies No Known Allergies Allergy (Verified 11/16/22 15:25) HPI TV Follow Up SWL HPI Details Start time: 9.51am, End time: 10.11am ?I spent 15 minutes speaking with the patient on the phone plus an additional 5 minutes reviewing and updating records for a total of 20 minutes HPI Comments History of Present Illness Details Overall weight loss: 4.4lbs, or 2.06% TBWL Is re-starting one Orgain protein shake (1/2 scoop in 8oz almond milk), one Orgain shake (1 scoop in 8oz almond milk), 2 Zone Perfect protein bars and one meal (8 forks of protein and 8 forks of salad or vegetables) Exercise: Will re-start the Gym tomorrow doing the treadmill (speed: 3.0, incline: 2-8) PFSH Medical History Anxiety Depression Insomnia Morbid obesity PCOS (polycystic ovarian syndrome) Surgical History Hx of tubal ligation Family History Mother Cancer Father No problems noted. Daughter No problems noted. Son ADHD Son No problems noted. Son No problems noted. 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 Continue present nutritional plan of one Orgain protein shake (1/2 scoop in 8oz almond milk), one Orgain shake (1 scoop in 8oz almond milk), 2 Zone Perfect protein bars and one meal (8 forks of protein and 8 forks of salad or vegetables) 2. Exercise: Continue the treadmill (speed: 3.0, incline: 2-8) for 500 calories per work-out, 5 days per week 3. Continue to send me weight measurements weekly on (2) BMI 39.0-39.9,adult: Code(s): Z68.39 - Body mass index [BMI] 39.0-39.9, adult Telehealth Telehealth Location of provider rendering services: practice address Location of patient: address on file Patient Identification confirmed using: Name, : Yes Telehealth method: voice only Patient verbally consented to treatment: Yes Patient verbally consented to billing insurance company: Yes Patient informed of any privacy concerns related to visit: Yes Minutes spent on Phone/Video with Pt.: 20 Coding Level of Care Code Tele Est Pt Level 3 (63565) Diagnoses Obesity E66.9 BMI 39.0-39.9,adult Z68.39 Time Spent (min) 20
[2023-01-06 10:05] VITALS: BMI 39.6
== END 2023-01-06 10:11 | disposition home or self-care (01) ==
LOC: HO.HBS 08:10
PROVIDERS: PCP Internal Medicine; Visit Provider Surgery
DX: E66.9 Obesity, unspecified (principal); Z68.39 Body mass index [BMI] 39.0-39.9, adult
CPT/HCPCS: 99213

== ENCOUNTER → 2023-01-06 08:10 | Outpatient (BNVA) | payer MEDICAID, SELFPAY | PROVIDERS: PCP Internal Medicine; Visit Provider Surgery ==

== ENCOUNTER 2023-01-11 08:19 | Outpatient (REF) | payer MEDICAID, SELFPAY ==
--- NOTE | ~2023-01-11 | FL_ITS ---
PROCEDURE: XR FLUOROSCOPY UPPER GI WITH AIR CLINICAL INFORMATION: Obesity. COMPARISON: None available. TECHNIQUE: Air-contrast upper GI examination. FINDINGS: Patient swallowed a combination of thin and thick barium and half-inch diameter barium tablet as well as effervescent crystals. There is normal apposition of the vocal cords while saying E. There is normal elevation of the soft palate while saying candy. Patient swallowed thin and thick barium and half-inch diameter barium tablet without difficulty. No nasopharyngeal reflux or tracheal aspiration identified. There is normal esophageal motility present. No persistent stricture is seen. No mucosal abnormality is noted. No hiatal hernia. There is mild gastroesophageal reflux within the distal third of the esophagus which cleared rapidly. The stomach demonstrates normal distensibility without abnormal mass or ulceration. There is no delay in gastric emptying. The duodenal bulb and sweep appeared unremarkable. FLUOROSCOPY TIME: 1.4 minutes DOSE AREA PRODUCT: 17.466 Gy-cm2 (sanderson-centimeter squared) FL/FL upper GI w air IMPRESSION: Mild transient gastroesophageal reflux within the distal third of the esophagus. Otherwise unremarkable air-contrast upper GI examination.
== END 2023-01-11 08:20 | disposition home or self-care (01) ==
LOC: HO.XRAY 08:19
PROVIDERS: PCP Internal Medicine; Visit Provider Surgery
DX: E66.01 Morbid (severe) obesity due to excess calories (principal); E28.2 Polycystic ovarian syndrome
CPT/HCPCS: 74246

== ENCOUNTER → 2023-01-11 08:21 | Outpatient (BNV) | payer MEDICAID, SELFPAY | PROVIDERS: PCP Internal Medicine; Visit Provider Radiology Diagnostic Radiology | DX: E66.01 Morbid (severe) obesity due to excess calories (principal); Z68.39 Body mass index [BMI] 39.0-39.9, adult; Z01.818 Encounter for other preprocedural examination | CPT/HCPCS: 74246 ==

== ENCOUNTER 2023-01-30 08:03 | Outpatient (AMB) | payer MEDICAID, SELFPAY ==
--- NOTE | 2023-01-30 08:41 | A.OFFVIS_ITS ---
Intake VS Expanded 01/30/23 08:51 Height 5 ft 1 in Weight 203 lb 8 oz BMI 38.4 Body Fat 66.8 Body Fat Percentage 32.8 Free Fat Mass 136.8 Visceral Mass 20 Water Mass 93.9 BMR 1,698 Intake Visit Reasons: TV Follow Up SWL Allergies No Known Allergies Allergy (Verified 11/16/22 15:25) HPI TV Follow Up SWL HPI Details Start time: 8.40am, End time: 9am ?I spent 15 minutes speaking with the patient on the phone plus an additional 5 minutes reviewing and updating records for a total of 20 minutes HPI Comments History of Present Illness Details Overall weight loss: 10.2lbs, or 4.77% TBWL Is doing 2 Orgain protein shakes (1 scoop each in 8oz almond milk), 2 Zone Perfect protein bars and one meal (8 forks of protein and 8 forks of salad or vegetables) Exercise: is doing treadmill (incline 2-8, speed: 3.0mph) for 500 calories x 5 days per week PFSH Medical History Anxiety Depression Insomnia Morbid obesity PCOS (polycystic ovarian syndrome) Surgical History Hx of tubal ligation Family History Mother Cancer Father No problems noted. Daughter No problems noted. Son ADHD Son No problems noted. Son No problems noted. 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 Plan for lap sleeve gastrectomy including upper GI endoscopy. All tests has been completed and reviewed and the patient is cleared for the surgery. ?If diaphragmatic or ventral hernias are present at time of surgery, these will be repaired laparoscopically as well. Risks and complications were discussed in detail including possible conversion to an open procedure, anastomotic leak, bleeding requiring transfusion, small bowel obstruction, , DVT and pulmonary embolism, cardiac, or pulmonary complications, as intermediate complications such as anastomotic ulcer, insufficient weight loss and vitamin deficiencies. I emphasized the importance of close follow-up, adherence to instructions and good communication. So far she has proven to be an excellent communicator and very compliant with all our directions accomplishing a great weight loss. I believe that she is an excellent candidate and she is ready. 2. Change nutritional plan to one Orgain protein shake (HALF scoop each in 8oz almond milk), another Orgain shake with ONE scoop in 8oz almond milk, 2 Zone Perfect protein bars and one meal (8 forks of protein and 8 forks of salad or vegetables) 3. Exercise: until your thigh muscles feel better, please start stationary bike at a resistance level of 2.0 Increase level by 1.0 every 3 min to a max level of 8.0. Stay at this level for 3 min and then return to level 2.0 and repeat same steps until 400 calories are burned, 5 days per week. Velocity target is 12mph and heart rate is 145 bpm. 4. Once your thigh muscles heal, re-start the treadmil (incline 2-8, speed: 3.0mph) for 500 calories x 5 days per week 5. Send me weight measurements weekly on Mondays Telehealth Telehealth Location of provider rendering services: practice address Location of patient: address on file Patient Identification confirmed using: Name, : Yes Telehealth method: voice only Patient verbally consented to treatment: Yes Patient verbally consented to billing insurance company: Yes Patient informed of any privacy concerns related to visit: Yes Minutes spent on Phone/Video with Pt.: 20 Coding Level of Care Code Tele Est Pt Level 3 (14032) Time Spent (min) 20
[2023-01-30 08:51] VITALS: BMI 38.4
== END 2023-01-30 09:00 | disposition home or self-care (01) ==
PROVIDERS: PCP Internal Medicine; Visit Provider Surgery
DX: E66.9 Obesity, unspecified (principal); Z68.38 Body mass index [BMI] 38.0-38.9, adult
CPT/HCPCS: 99213

== ENCOUNTER → 2023-01-30 08:03 | Outpatient (BNVA) | payer MEDICAID, SELFPAY | PROVIDERS: PCP Internal Medicine; Visit Provider Surgery ==

== ENCOUNTER 2023-03-03 10:35 | Outpatient (AMB) | payer MEDICAID, SELFPAY ==
--- NOTE | 2023-03-03 12:21 | MHC.OFFVISWM ---
Intake VS Expanded 03/03/23 12:28 Height 5 ft 1 in Weight 196 lb 2 oz BMI 37.1 Body Fat % 31.5 Body Fat Mass 61.8 Fat Free Mass 134.4 Visceral Fat Rating 19 Body Water % 47 Body Water Mass 92.2 Basal Metabolic Rate/Score 1,683 Intake Visit Reasons: TV Pre Op LSG 03/16/23 Allergies No Known Allergies Allergy (Verified 03/03/23 12:22) Medication List - Last Reconciled 03/03/23 by Alex Tyler MD cholecalciferol (vitamin D3) 50 mcg PO DAILY drospirenone-ethinyl estradiol 3-0.02 mg (Yeimy (28)) 1 tab PO QAM ferrous sulfate 325 mg PO Q OTHER DAY metformin ER 500 mg PO BID mirtazapine 7.5 - 15 mg PO BEDTIME PRN ondansetron 4 mg PO Q6H PRN pantoprazole 40 mg PO DAILY polyethylene glycol 3350 (Miralax) 17 grams PO DAILY sucralfate 10 mL PO BID venlafaxine ER 75 mg PO QAM HPI TV Pre Op LSG 03/16/23 HPI Details Start time: 12.18PM, End time: 12.38PM ?I spent 15 minutes speaking with the patient on the phone plus an additional 5 minutes reviewing and updating records for a total of 20 minutes HPI Comments History of Present Illness Details Overall weight loss: 17.8 lbs, or 8.32% TBWL Is doing 2 Orgain protein shakes (1 scoop each in 8oz almond milk), 2 Zone Perfect protein bars and one meal (8 forks of protein and 8 forks of salad or vegetables) Exercise: treadmill for 5 days per week for 500 calories each time [facility] Medical History Anxiety Depression Insomnia Morbid obesity PCOS (polycystic ovarian syndrome) Surgical History Hx of tubal ligation Family History Mother Cancer Father No problems noted. Daughter No problems noted. Son ADHD Son No problems noted. Son No problems noted. 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 Plan for lap sleeve gastrectomy including upper GI endoscopy. All tests has been completed and reviewed and the patient is cleared for the surgery. ?If diaphragmatic or ventral hernias are present at time of surgery, these will be repaired laparoscopically as well. Risks and complications were discussed in detail including possible conversion to an open procedure, anastomotic leak, bleeding requiring transfusion, small bowel obstruction, , DVT and pulmonary embolism, cardiac, or pulmonary complications, as superintendent container terminal complications such as anastomotic ulcer, insufficient weight loss and vitamin deficiencies. I emphasized the importance of close follow-up, adherence to instructions and good communication. So far she has proven to be an excellent communicator and very compliant with all our directions accomplishing a great weight loss. I believe that she is an excellent candidate and she is ready. 2. Preop prescriptions were provided and explained the purpose of each one. Need to be purchased preop. Start Pantoprazole now as you get it from the pharmacy, 1 pill per day. Sucralfate and Zofran are for after surgery as needed. 3. Bowel prep: please do 7 packets ?of Miralax mixing each one with a an 8oz glass of water, crystal light, gatorade zero, or propel ?on 03/14/23 and the same amount on 03/15/23. Continue the protein shakes during? the bowel prep. 4. Needs to purchase 1oz medicine cups . 5. Needs to purchase Children's liquid Tylenol for postop pain control. 6. Avoid aspirin, motrin, Advil, Aleve, Ibuprofen, Naproxyn. Tylenol is OK. 7. She needs to purchase the Celebrate 4:1 protein shakes from the hospital's gift shop. 8. Will do basic preop blood work-up any day between Monday04/25/22 and Monday04/29/22 fasting for 12 hours and is scheduled to see the Anesthesiologist prior to the day of surgery. 9. Importance of adherence to postop folllow-up and recommendations was underscored and she understands that. 10. Stop food and bars as of Monday03/05/23 and continue with 3 Orgain protein shakes (ONE scoop in 8oz almond milk) at 7am-9am, 10am-12pm and 1pm-3pm and two more Orgain protein shakes with TWO scoops in 8oz of almond milk at 4pm-6pm and 7pm-9pm 11. No soups, broths or V8 12. The patient's?medical?history has been reviewed and they are considered low risk for post op DVT and therefore DVT prophylaxis is not considered necessary. Travel after surgery was reviewed. The patient has not disclosed any travel plans during the first 30 days after surgery and they have been advised that within the first 30 days after surgery any bus, plane, train or car travel over 2 hours in duration is contraindicated due to the possibility of developing blood clots from immobility. Any travel, needs to include periods of ambulation of 10 minutes in duration every 2 hours.? Patient was instructed to discuss any plans for travel during this period with their bariatric surgeon.? 13. Please take at the day of surgery the following medications: NONE 14. Stop any control pills and don't use them for one month after surgery 15. Absolutely no smoking or vaping, or marijuana until the surgery and for at least the first 4 weeks. Only nicotine patches are allowed. 16. Send me weight measurements on Mondays02/04/23 and 02/11/23 and then on 02/14/23 on the day of surgery before you go to the hospital. 17. Avoid any steroids by mouth for any reason. Let me know if someone prescribes them to you (2) BMI 37.0-37.9, adult: Code(s): Z68.37 - Body mass index [BMI] 37.0-37.9, adult Telehealth Telehealth Location of provider rendering services: practice address Location of patient: address on file Patient Identification confirmed using: Name, : Yes Telehealth method: voice only Patient verbally consented to treatment: Yes Patient verbally consented to billing insurance company: Yes Patient informed of any privacy concerns related to visit: Yes Minutes spent on Phone/Video with Pt.: 20 Coding Level of Care Code Tele Est Pt Level 3 (49506) Diagnoses Obesity E66.9 BMI 37.0-37.9, adult Z68.37 Time Spent (min) 20
[2023-03-03 12:28] VITALS: BMI 37.1
== END 2023-03-03 12:39 | disposition home or self-care (01) ==
LOC: HO.HBS 10:35
PROVIDERS: PCP Internal Medicine; Visit Provider Surgery
DX: E66.9 Obesity, unspecified (principal); Z68.37 Body mass index [BMI] 37.0-37.9, adult
CPT/HCPCS: 99213

== ENCOUNTER → 2023-03-03 10:35 | Outpatient (BNVA) | payer MEDICAID, SELFPAY | PROVIDERS: PCP Internal Medicine; Visit Provider Surgery ==

== ENCOUNTER 2023-03-06 11:12 | Outpatient (REF) | payer MEDICAID, SELFPAY ==
[2023-03-06 11:37] LABS: MANUAL DIFF FLAG NO
[2023-03-06 12:10] LABS: Basophils Percent Auto 0.2 % (0-2); Eosinophils Absolute Auto 0.1 X10*3/uL (0.0-0.4); Eosinophils Percent Auto 1.5 % (0-4); Hematocrit 41.8 % (37.0-47.0); Hemoglobin 13.2 g/dl (12.0-16.0); Imm Gran Abs Auto 0.02 X10*3/uL (0.00-0.03); Imm Gran Pct Auto 0.4 % (0.0-0.4); Lymphocytes Absolute Auto 1.8 X10*3/uL (1.2-4.9); Lymphocytes Percent Auto 37.2 % (20-40); Mean Corpuscular HGB Conc 31.6 g/dl (31.0-35.0); Mean Corpuscular Hemoglobin 24.4 pg (27.0-33.0); Mean Corpuscular Volume 77.4 fL (80.0-98.0); Monocytes Absolute Auto 0.3 X10*3/uL (0.1-1.2); Monocytes Percent Auto 6.3 % (2-11); Neutrophils Absolute Auto 2.6 x10*3/uL (2.0-8.3); Neutrophils Percent Auto 54.4 % (45-73); Platelet Count 244 X10*3/uL (160-400); Red Cell Distribution Width 14.3 % (11.0-16.0); White Blood Count 4.8 X10*3/uL (4.8-10.8)
[2023-03-06 12:14] LABS: INTERNATIONAL NORM RATIO 1.1 (0.9-1.1); Prothrombin Time 13.1 SEC (11.1-13.3)
[2023-03-06 12:17] LABS: Partial Thromboplastin Time 34.2 SEC (26.0-36.4)
[2023-03-06 12:30] LABS: Estimated Average Glucose 100 mg/dL; Hemoglobin A1c % 5.1 % (<6.0)
[2023-03-06 13:29] LABS: Alanine Aminotransferase 30 U/L (0-31); Albumin Level 4.5 g/dL (3.5-5.0); Alkaline Phosphatase 74 U/L (39-117); Anion Gap 16 (12-20); Aspartate Amino Transferase 22 U/L (5-31); Bilirubin Total 0.4 mg/dL (0.0-1.0); Blood Urea Nitrogen 9 mg/dL (9-16); C Reactive Protein 0.47 mg/dL (< or = 0.50); Calcium 10.4 mg/dL (8.4-10.2); Carbon Dioxide 23 mmol/L (22-29); Chloride 104 mmol/L (96-108); Cholesterol 191 mg/dL (<200); Estimated Glomerular Filt Rate > 60; Glucose Random 90 mg/dL (60-115); HDL Cholesterol 40 mg/dL (>40); Insulin 32 uU/mL (2-29); LDL Cholesterol Calculated 130 mg/dL (<100); Potassium 4.1 mmol/L (3.3-5.1); Sodium 139 mmol/L (135-145); TSH reflex Free T4 1.34 uIU/mL (0.32-4.0); Total Protein 7.9 g/dL (6.5-8.0); Triglycerides 105 mg/dL (<150)
== END 2023-03-06 11:13 | disposition home or self-care (01) ==
LOC: HO.LAB 11:12
PROVIDERS: PCP Internal Medicine; Visit Provider Surgery
DX: E66.9 Obesity, unspecified (principal); Z68.37 Body mass index [BMI] 37.0-37.9, adult
CPT/HCPCS: 36415; 80053; 80061; 83036; 83525; 84443; 85025; 85610; 85730; 86140

== ENCOUNTER 2023-03-15 10:03 | Inpatient (IN) | payer MEDICAID, SELFPAY ==
[2023-03-07 09:43] VITALS: BMI 38.2
--- NOTE | 2023-03-10 22:11 | MHC.SHP ---
Pre-Procedural Eval Section A Date of Service: 03/10/23 The patient is an INPATIENT: Yes The History & Physical has been completed within 30 days and I have reviewed it.: Yes Section B Chief Complaint: Obesity, unspecified Relevant Family History (Specify if Yes): No Relevant Social History: None Present Medications: None Medical History: No relevant PMH History of Previous Operations: No relevant previous surgery Allergies: Allergies Allergy/AdvReac Type Severity Reaction Status Date / Time No Known Allergies Allergy Verified 03/03/23 12:22 Review of Systems Sugical H&P ROS: Negative: Constitution, Cardiovascular, Respiratory, Neurological, Psychiatric, Hem-Onc, Allergic/Immunologic, Gastrointestinal, Genitourinary, Musculoskeletal, Integumentary, Endocrine and Eyes/Ears/Nose/Throat Exam Surgical H&P Exam: Normal: HEENT, Normal: Heart, Normal: Lungs, Normal: Extremities, Normal: Abdomen, Normal: Skin and Normal: Neurological Plan Diagnosis/Plan: Unchanged I have reviewed the history and physical and performed a pertinent physical examination on my patient. No changes have occurred unless specified. Time Spent With Patient Time: Total time managing care of this patient today ____ minutes.
--- NOTE | 2023-03-14 08:47 | HO.ANESPROP2 ---
Documented by User: Yaima Cota NP 03/14/23 08:53 HPI - Anesthesia Eval Consult details Narrative: 32yo F for Gastrectomy Sleeve- EGD, possible diaphragmatic hernia, possible ventral hernia, possible open PMFSH Active Problems Active Problems: All Active Problems (Updated 03/07/23 @ 09:31 by Chapis Munoz RN) BMI 37.0-37.9, adult (Acute) BMI 39.0-39.9,adult (Acute) Obesity (Acute) H. pylori infection (Acute) Adhesive capsulitis of left shoulder (Acute) Painful arc syndrome of left shoulder (Acute) Anxiety (Acute) Depression (Acute) Insomnia (Acute) PCOS (polycystic ovarian syndrome) (Acute) Morbid obesity (Acute) Past Medical History Medical History (Updated 03/25/23 @ 16:17 by Alex Tyler MD) BMI 37.0-37.9, adult Migraines COVID-19 Anxiety Depression Insomnia PCOS (polycystic ovarian syndrome) Morbid obesity Family History Family History Mother Cancer Father No problems noted. Daughter No problems noted. Son ADHD Son No problems noted. Son No problems noted. 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 - [employer] Allergies Allergy/AdvReac Type Severity Reaction Status Date / Time No Known Allergies Allergy Verified 03/21/23 10:52 Home Medications Medication Instructions Recorded Confirmed Last Taken Type mirtazapine 15 mg tablet 7.5 - 15 mg PO BEDTIME PRN insomnia 09/08/22 03/21/23 Unknown History venlafaxine 75 mg capsule,extended 75 mg PO DAILY 09/08/22 03/21/23 Unknown History release 24 hr Exam Exam Date and Time: March 14, 2023 0847 Height,Weight and Vital Signs: Height 5 ft 1 in Weight 91.626 kg Pertinent Lab Results Pertinent Lab Results: Laboratory Tests 03/06/23 11:30 Blood Type O Positive Antibody Screen NEGATIVE Laboratory Tests 03/06/23 11:36 WBC 4.8 Hgb 13.2 Hct 41.8 Plt Count 244 Sodium 139 Potassium 4.1 Chloride 104 Carbon Dioxide 23 BUN 9 Creatinine 0.70 Narrative Narrative: EKG 10/2022 Vent. Rate : 095 BPM Atrial Rate : 095 BPM P-R Int : 134 ms QRS Dur : 074 ms QT Int : 348 ms P-R-T Axes : 062 044 018 degrees QTc Int : 437 ms Normal sinus rhythm Normal ECG No previous ECGs available Assessment and Plan Assessment Anesthesia Assessment: Chart Reviewed Documented by User: Kaden Leyva MD 04/13/23 18:27 [facility] Past Medical History Medical History (Updated 03/25/23 @ 16:17 by Alex Tyler MD) BMI 37.0-37.9, adult Migraines COVID-19 Anxiety Depression Insomnia PCOS (polycystic ovarian syndrome) Morbid obesity Functional capacity: independent ambulation Family History Family History Mother Cancer Father No problems noted. Daughter No problems noted. Son ADHD Son No problems noted. Son No problems noted. Family history of problems with anesthesia: No Surgical History Surgical History (Updated 03/24/23 @ 00:01 by Sandra Teresa) S/P laparoscopic sleeve gastrectomy Hx of tubal ligation History of Problems with Anesthesia: No Social History Household Members: Spouse and Children Housing: House Are you a primary director of health care marketing to a significant other at home: No Do you presently have visiting nurse or other home services: No Alcohol intake: current Alcohol intake frequency: holidays/special occasions only Patient Tobacco Use Status: Never used Tobacco service: No Current occupational status: employed 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 - [employer] Allergies Allergy/AdvReac Type Severity Reaction Status Date / Time No Known Allergies Allergy Verified 03/21/23 10:52 Home Medications Medication Instructions Recorded Confirmed Last Taken Type mirtazapine 15 mg tablet 7.5 - 15 mg PO BEDTIME PRN insomnia 09/08/22 03/21/23 Unknown History venlafaxine 75 mg capsule,extended 75 mg PO DAILY 09/08/22 03/21/23 Unknown History release 24 hr Exam Airway Mallampati Class: III Neck ROM: Full Loose/Missing/Broken Teeth: Yes Assessment and Plan Assessment Anesthesia Assessment: Anesthesia Plan Discussed Final Anesthetic Review Family History of Problems with Anesthesia: No History of Problems with Anesthesia: No NPO: Yes ASA Class: III Final Preanesthetic Review: Meds/Allgs Chart Reviewed, Consent Obtained/Reviewed and Anes Risks/Benef Reviewed Patient Risk: Intermediate Procedure Risk: Intermediate Anesthetic Plan Anesthetic Plan: GA and Agree w/ Assess. and Plan Disposition: Standard PACU
[2023-03-15] VITALS (11 sets, daily range): BP systolic 106–139; BP diastolic 51–79; PULSE 82–115; RESP 16–18; TEMP 36.3–36.5; O2SAT 97–100; BMI 41.0
--- NOTE | 2023-03-15 10:18 | PHA.MEDREC ---
Pharmacy Consult ? Medication Reconciliation Pharmacy has completed the medication reconciliation.PHARMACY HAS REVIEWED MED REC DONE BY NURSING
[2023-03-15] MEDS: Lactated Ringers 1,000 ML 999 ML IV (10:42)
[2023-03-15] MEDS: Aprepitant 32 MG/4.4 ML VIAL IVPUSH (10:42)
--- NOTE | 2023-03-15 11:20 | P.BOP_ITS ---
Brief Operative Note Date of Service: 03/15/23 Pre-op diagnosis: Severe obesity with comorbidities (see below) Procedure: INITIAL PATIENT BMI ON PRESENTATION AT OUR OFFICE: 40.4 kg/m2 LAST BMI BEFORE SURGERY: 37.9 kg/m2 COMORBIDITIES: PCOS, insomnia, depression, anxiety, GERD, liver steatosis ?The patient presented to the Weight Management Program with significant obesity that was negatively impacting the patient's comorbidities as listed above.? The program is a phased program with a special focus on preoperative medical weight management to promote substantial weight loss and prepare the patients for the second phase of the program: bariatric surgery. The patient participated in an intensive weekly lifestyle ?intervention and exercise program during which the patient ?has lost between the initial office visit and the last preoperative visit 17.8lbs, or 8.32% of initial actual body weight. It was deemed appropriate for the patient to now have bariatric surgery. In light of the current Covid-19 pandemic and the well documented strong association of obesity and increased risk of worse outcomes if infected with Covid-19 (REFERENCES: https://pubmed.ncbi.nlm.nih.gov/00711034/ ,? https://pubmed.ncbi.nlm.nih.gov/02466861/ ), any delay in undergoing bariatric surgery may lead to the patient's worsening health condition and increased?risk of more severe Covid-19 disease if infected. In addition a recent?study from [facility] published in [facility] on 05/17/2021 ([email or web address]) found that, among patients with obesity, substantial weight loss achieved with surgery was associated with improved outcomes of COVID-19 infection. The findings suggest that obesity can be a modifiable risk factor for the severity of COVID-19 infection. In addition, the patient met the BMI-criteria for bariatric surgery based on the BMI on initial presentation. The patient should not be penalized for achieving such weight loss because ?it is not sustainable long-term without surgical intervention and it was achieved in preparation for bariatric surgery ?under my direction and based on my published research ([email or web address] [email or web address]).pdf and? [email or web address].soard.org/article/[email or web address](90)59352-X/pdf ) ?that a 10% preoperative weight loss improves long-term weight loss after surgery and reduces perioperative complications.? Insurance carriers such as [facility] have endorsed my recommendations ?and have included in their policies criteria to include a 10% preoperative weight loss requirement. PROCEDURE: Esophago-gastroscopy, laparoscopic sleeve gastrectomy and laparoscopic gastropexy INDICATIONS: This is a 32 year-old female who was electively scheduled for laparoscopic, possibly open sleeve gastrectomy. The risks and complications of the procedure were discussed with the patient in advance, particularly the possibility of ; pulmonary embolism; staple line leak; bleeding; GERD; cardiac, pulmonary, or renal complications; as well as long-term problems such as insufficient weight loss, vitamin deficiency, strictures, or ulcers. The patient understood all the risks, and was in agreement to proceed with surgery. DESCRIPTION OF PROCEDURE: After informed consent was obtained from the patient, the patient was given preoperative antibiotics, and was transferred to the operating room. After successful induction of general anesthesia, pneumatic compression devices were placed on both lower extremities. An upper endoscopy was performed next. The oropharynx and esophagus appeared to be within normal limits. There was no diaphragmatic hernia present consistent with the findings of the preoperative upper GI. The stomach was entered. Then after all fluid and air were suctioned and the stomach was fully decompressed, the scope was withdrawn and secured in the mid esophagus. The patient was then prepped and draped in the usual sterile manner, and abdominal access was established at the right upper quadrant with the Wilver technique. A 12 mm blunt port was inserted, and the abdomen was insufflated with CO2 to a pressure of 15 mmHg. Under direct visualization, additional ports were placed, specifically two 5 mm Versi-step ports to the left upper quadrant, and a 5 mm Versi-Step port to the right upper quadrant. 1% lidocaine plain was used to infiltrate all port sites as well as all fascia defects. Following that, the patient was placed in a steep reverse Trendelenburg position. An additional 5 mm port was placed to the right flank for the Mediflex retractor that was used to retract the left lobe of the liver. The gastro-esophageal fat pad was opened with the ultrasonic device (Thtremaineerbeat, Olympus) and the anterior esophagus and hiatus were exposed. The angle of His was opened with the ultrasonic device the fundus of the stomach from any diaphragmatic and splenic attachments. I then opened the gastrocolic ligament between the transverse colon and the greater curvature of the stomach with the ultrasonic device to enter the lesser sac and facilitate the ligation of the short gastric vessels. I started at a mid-point along the greater curvature and using the Thunderbeat, all short gastric vessels were divided all the way to the angle of His until the left peter was completely dissected at its entirety. I then divided the gastro-colic ligament distally to a distance of about 3-4 cm proximal to the pylorus. The stomach was then divided transversely with two Endo KASI-45 purple and four KASI-60 articulating purple loads using the DDN stapler and loads. Every effort was made that the gastric sleeve had a tubular shape and an even caliber throughout. Once the sleeve resection was completed, the staple line of the gastric sleeve was reinforced with Hemoclips. The resected stomach was retrieved without difficulty from the Wilver port. A gastropexy was then performed in order to prevent postoperative GERD and partial gastric volvulus. Several interrupted 2.0 Surgidac sutures were placed between the sleeve's staple line and the previously divided greater omentum and gastro-colic ligament using the Endo-Stitch device. ?An upper endoscopy was performed. There was no narrowing at the GE junction. The scope was easily advanced all the way to the pylorus which was clearly visualized. There was no narrowing anywhere and the sleeve's caliber was even throughout. The sleeve's staple line was inspected and there was no evidence of ischemia, bleeding or dehiscence. At that point the gastroscope was withdrawn from the patient?s mouth while we were decompressing the bowel and the stomach from any remaining air. I looked into the lesser sac to see how the sleeve was situating and it was situating well. There was no bleeding from the staple line, spleen, or short gastric vessels. The Mediflex retractor was removed, and the undersurface of the liver was inspected and there was no bleeding. The patient was placed in supine position. I closed the fascial defect of the 12 mm port site with a figure of eight #1 Polysorb suture. Then 30cc Ropivacaine plain with 10 mg of Dexamethasone were used to infiltrate the fascial closure as well as all skin incisions. A total of ml Zynrelef was applied in the Wilver wound. At this point, the abdomen was deflated, all ports were removed under direct vision, and no bleeding was noted from any of the port sites. The skin incisions were irrigated with saline and were closed with 4-0 absorbable monofilament sutures. Steri-Strips and OpSites were used to cover all incisions. The patient was extubated and was transferred in stable condition to the recovery room for further care. I was present and performed all bustillos parts of the procedure. Ms. Rose was the international first officer. There were no residents to assist with this case. Uriel Tyler MD, PhD, FACS Surgeon: Alex Tyler MD Anesthesia: GETA, local and other (TAP block and 5ml Zynrelef) Was an Administrative Services Director used for this Procedure?: No Administrative Services Director: Deepika Rose Estimated blood loss (mL): 10 IV fluids (mL): 3,000 Urine output (mL): 0 (No Antonio to record output) Pathology: other (Stomach) Condition: stable Disposition: PACU
--- NOTE | 2023-03-15 11:23 | P.PNGS_ITS ---
Subjective Subjective Date of Service: 03/16/23 Interval history: Spoke to the patient by phone. Feels well. Mild incisional pain. She is tolerating phase 1 bariatric diet Physical Exam 2 Vital Signs: Vital Signs: Last Vital Signs Temp 97.7 F 03/15/23 10:24 Pulse 85 03/15/23 10:24 Resp 16 03/15/23 10:24 BP 106/70 03/15/23 10:24 Pulse Ox 100 03/15/23 10:24 O2 Del Method Room Air 03/15/23 10:24 BMI result Body Mass Index 38.2 Objective Data Active Medications Lactated Ringer's (Lr) 1,000 mls @ 100 mls/hr IVCONT .Q10H IDANN Lactated Ringer's (Lr) 1,000 mls @ 999 mls/hr IV .Q1H1M DIANN Stop: 03/15/23 12:15 Last Admin: 03/15/23 10:42 Dose: 999 mls/hr Documented By: NEAL Labs 03/16/23 05:04 03/16/23 05:04 Procedures Date of Service Date of Service: 03/16/23 Progress Note: A&P Assessment and plan (1) Obesity: Status: Acute Assessment and Plan: s/p laparoscopic sleeve gastrectomy, lysis of adhesions, diaphragmatic hernia repair and gastropexy Doing well Will check am labs and if OK the patient will be discharged home (2) BMI 37.0-37.9, adult: Status: Acute (3) PCOS (polycystic ovarian syndrome): Status: Acute (4) Insomnia: Status: Acute (5) Depression: Status: Acute (6) Anxiety: Status: Acute (7) GERD (gastroesophageal reflux disease): Status: Acute (8) Steatosis, liver: Status: Acute (9) S/P laparoscopic sleeve gastrectomy: Status: Acute Time Spent With Patient Time: Total time managing care of this patient today ____ minutes. Quality Stroke Does the patient have a stroke diagnosis?: No VTE Prior VTE?: No VTE Risk Level:: Surgical - moderate VTE Device Contraindication: N/A - Device Ordered VTE Drug Contraindication: Treatment Not Indicated
[2023-03-15 14:41] LABS: Hematocrit 37.8 % (37.0-47.0); Hemoglobin 12.2 g/dl (12.0-16.0)
[2023-03-15 14:58] LABS: Anion Gap 13 (12-20); Blood Urea Nitrogen 6 mg/dL (9-16); Calcium 9.1 mg/dL (8.4-10.2); Carbon Dioxide 19 mmol/L (22-29); Chloride 108 mmol/L (96-108); Creatinine Clr Calc Pharmacy 117.8; Estimated Glomerular Filt Rate > 60; Glucose Random 91 mg/dL (60-115); Potassium 4.3 mmol/L (3.3-5.1); Sodium 136 mmol/L (135-145)
[2023-03-15] MEDS: Acetaminophen 1,000 MG/100 ML PIGGYBACK 16.7 MG IV ×2 (15:44→21:06)
[2023-03-15] MEDS: Famotidine/PF 20 MG/2 ML VIAL IVPUSH ×2 (15:44→21:03)
[2023-03-15] MEDS: Lactated Ringers 1,000 ML 100 ML IVCONT (15:51)
[2023-03-15] MEDS: ceFAZolin Sodium/Dextrose,Iso 2 GM/50 ML PIGGYBACK IV (17:45)
[2023-03-15] MEDS: 0.9 % Sodium Chloride Flush 3 ML SYRINGE IVFLUSH (21:03)
[2023-03-16] MEDS: Lactated Ringers 1,000 ML 100 ML IVCONT (01:14)
[2023-03-16] MEDS: HYDROmorphone HCl 0.5 MG/0.5 ML SYRINGE 0.25 MG IVPUSH (02:19)
[2023-03-16] MEDS: Acetaminophen 1,000 MG/100 ML PIGGYBACK 16.7 MG IV ×2 (02:34→08:36)
[2023-03-16 03:32] VITALS: BP 115/55; PULSE 95; RESP 18; TEMP 36.8; O2SAT 96
[2023-03-16 05:56] LABS: MANUAL DIFF FLAG NO
[2023-03-16 06:20] LABS: Basophils Percent Auto 0.1 % (0-2); Hematocrit 36.5 % (37.0-47.0); Hemoglobin 11.8 g/dl (12.0-16.0); Imm Gran Abs Auto 0.02 X10*3/uL (0.00-0.03); Imm Gran Pct Auto 0.3 % (0.0-0.4); Lymphocytes Absolute Auto 0.9 X10*3/uL (1.2-4.9); Lymphocytes Percent Auto 12.5 % (20-40); Mean Corpuscular HGB Conc 32.3 g/dl (31.0-35.0); Mean Corpuscular Hemoglobin 25.1 pg (27.0-33.0); Mean Corpuscular Volume 77.7 fL (80.0-98.0); Mean Platelet Volume 11.9 fL (9.4-12.3); Monocytes Absolute Auto 0.3 X10*3/uL (0.1-1.2); Monocytes Percent Auto 3.8 % (2-11); Neutrophils Percent Auto 83.3 % (45-73); Platelet Count 252 X10*3/uL (160-400); Red Cell Distribution Width 14.6 % (11.0-16.0); White Blood Count 7.2 X10*3/uL (4.8-10.8)
[2023-03-16 06:21] LABS: Anion Gap 15 (12-20); Blood Urea Nitrogen 6 mg/dL (9-16); Carbon Dioxide 20 mmol/L (22-29); Chloride 105 mmol/L (96-108); Creatinine Clr Calc Pharmacy 130.2; Estimated Glomerular Filt Rate > 60; Glucose Random 104 mg/dL (60-115); Potassium 3.9 mmol/L (3.3-5.1); Sodium 136 mmol/L (135-145)
[2023-03-16 07:37] VITALS: BP 124/63; PULSE 88; RESP 18; TEMP 36.7; O2SAT 100
[2023-03-16] MEDS: Famotidine/PF 20 MG/2 ML VIAL IVPUSH (08:16)
--- NOTE | 2023-03-16 10:37 | MHC.CM.PN ---
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
--- NOTE | 2023-03-16 12:15 | PM.DS ---
DS: Providers Provider Date of Service: 03/16/23 Date of admission: 03/15/23 10:03 Primary care physician: Halina Uriostegui MD DS: Diagnosis Discharge Diagnosis (1) Obesity: Status: Acute (2) BMI 37.0-37.9, adult: Status: Acute (3) PCOS (polycystic ovarian syndrome): Status: Acute (4) Insomnia: Status: Acute (5) Depression: Status: Acute (6) Anxiety: Status: Acute (7) GERD (gastroesophageal reflux disease): Status: Acute (8) Steatosis, liver: Status: Acute (9) S/P laparoscopic sleeve gastrectomy: Status: Acute DS: Summary Hospital Course Hospital Course: ADMITTING DIAGNOSIS: morbid obesity, PCOS, migraines DISCHARGE DIAGNOSIS: same, s/p laparoscopic sleeve gastrectomy PAST SURGICAL HISTORY: BTL PROCEDURE: upper endoscopy, laparoscopic sleeve gastrectomy DISCHARGE SUMMARY: History of Present Illness: The patient is a 32 year-old woman with a BMI of 40.4kg/m2 and associated co-morbidities as described above. The patient had extensive work-up, lost 17.8lbs preoperatively and was electively scheduled for laparoscopic, possible open sleeve gastrectomy and gastropexy. Risks and complications of the surgery were discussed with the patient in advance, particularly the possibility of , pulmonary embolism, anastomotic leak, bleeding, bowel injury, GERD, cardiac, renal or pulmonary complications. The patient understood all the risks and was in agreement with the surgical plan. Hospital Course: The patient underwent an uneventful laparoscopic sleeve gastrectomy with gastropexy on the day of admission. Postoperatively, the patient was transferred to the surgical floor. The patient received IV Acetaminophen and IV dilaudid for pain control. Patient was started on bariatric phase 1 diet POD #0. On postoperative day one, the patient was feeling well without nausea, vomiting, fevers, or tachycardia. The patient had some mild incisional pain and the abdomen was soft. On the morning of postoperative day one, the patient was continued on 1 ounce of water or ice every half hour. During the day, the patient did fairly well, having some incisional pain, but able to ambulate adequately and to tolerate liquids well. Since the patient is doing well, we decided that the patient was ready to be discharged. The patient was given instructions to follow-up with me next week and to call my office for any fever over 101, persistent abdominal pain, nausea, vomiting, GERD, symptoms of DVT such as calf tenderness, or leg swelling, or pulmonary embolism such as chest pain or shortness of breath. The patient was also instructed to drink 40-60 ounces of liquids per day using the 1-ounce cups. The patient had been given prescriptions for Tylenol for pain, Zofran prn for nausea, and pantoprazole and carafate previously. The patient was encouraged to ambulate and use the incentive spirometer. The patient was allowed to shower, but no baths, and encouraged to stay active at home. All of these instructions were given to the patient personally. All questions were answered and the patient understood all instructions, the instructions were also given to the patient in print. Time Spent with Patient Time attestation: Total time managing care of this patient today ____ minutes. Discharge coordination time: Less than 30 minutes Quality: Safe Use of Opioids Does Pt have an Active Cancer Diagnosis on the Problem List?: No Quality: Stroke Does the patient have a stroke diagnosis?: No Physical Exam Vital Signs: Vital Signs: Last Vital Signs Temp 98.1 F 03/16/23 07:37 Pulse 88 03/16/23 07:37 Resp 18 03/16/23 07:37 BP 124/63 03/16/23 07:37 Pulse Ox 100 03/16/23 07:37 O2 Del Method Room Air 03/16/23 07:37 O2 Flow Rate 2 03/15/23 15:07 BMI result Body Mass Index 41.0 DS: Data Data Completed and Pending Pending studies at discharge: Pending at discharge 03/15/23 12:58 Surgical [PTH] Routine Labs on day of discharge: Laboratory Results - last 24 hr 03/15/23 03/16/23 14:33 05:04 WBC 7.2 RBC 4.70 Hgb 12.2 11.8 L Hct 37.8 36.5 L MCV 77.7 L MCH 25.1 L MCHC 32.3 RDW 14.6 Plt Count 252 MPV 11.9 Immature Gran % (Auto) 0.3 Neut % (Auto) 83.3 H Lymph % (Auto) 12.5 L [place] % (Auto) 3.8 Eos % (Auto) 0.0 Baso % (Auto) 0.1 Lymph # (Auto) 0.9 L [place] # (Auto) 0.3 Eos # (Auto) 0.0 Baso # (Auto) 0.0 Abs Immat Gran (auto) 0.02 Absolute Neuts (auto) 6.0 Absolute Nucleated RBC 0.000 Nucleated RBC % (auto) 0.0 Sodium 136 136 Potassium 4.3 3.9 Chloride 108 105 Carbon Dioxide 19 L 20 L Anion Gap 13 15 BUN 6 L 6 L Creatinine 0.70 0.66 Estim Creat Clear Calc 117.8 130.2 Estimated GFR > 60 > 60 Random Glucose 91 104 Calcium 9.1 D 9.0 Discharge Plan Discharge Anticipated Discharge Date/Time: 03/16/23 10:07 Patient Disposition: Home, Self-Care Discharge Diagnosis: s/p sleeve gastrectomy Referrals: Halina Mayberry MD [Primary Care Provider] - 1 Week Discharge Medications: Continued pantoprazole 40 mg tablet,delayed release (DR/EC) 40 mg PO DAILY Qty: 30 2RF sucralfate 100 mg/mL suspension 10 ml PO BID Qty: 400 2RF ondansetron 4 mg tablet,disintegrating 4 mg PO Q6H PRN (Reason: nausea and vomiting) Qty: 20 0RF Rx Instructions: Only use if you have nausea venlafaxine 75 mg capsule,extended release 24hr 75 mg PO DAILY mirtazapine 15 mg tablet 7.5 - 15 mg PO BEDTIME PRN (Reason: insomnia) Discontinued polyethylene glycol 3350 [Miralax] 17 gram powder in packet 17 g PO DAILY Qty: 14 0RF Rx Instructions: Mix each packet with 8oz of water, Crystal light, or Gatorade zero, or Propel and do 7 packets on 03/14/23 and another 7 packets on 03/15/23 metformin 500 mg tablet extended release 24 hr 500 mg PO BID cholecalciferol (vitamin D3) 50 mcg (2,000 unit) capsule 50 mcg PO DAILY ferrous sulfate 325 mg (65 mg iron) tablet,delayed release (DR/EC) 325 mg PO Q OTHER DAY Discharge Orders: Discharge Order (Routine); Ordered 03/16/23 Ordered By: Franklin Ag Activity on Discharge: No heavy lifting Stand Alone Forms: Patient Portal Discharge page Care Plan Goals: weight loss Health Concerns: obesity Plan of Treatment: No tub baths, sex or returning to work until discussed at first post op appointment. No exercise, alcohol, tobacco or illegal drug use. Continue to use incentive spirometer hourly while awake. Walk in home for 5- 10 minutes every 2 hours during the first week. Continue phase 1 diet today and start phase 2 diet tomorrow morning. Follow all instructions in the bariatric handbook and call with any questions. 1. Please call your doctor or come back to the emergency room should any new symptoms arise. 2. You will receive a courtesy call from [facility] 24-48 hours after discharge. 3. Activity: abstain from alcohol, practice limited stair climbing, no bending, no driving, no exercise, no illicit substances, no lifting, no sex, no tub bath, no work. 4. Diet: continue as discussed with bariatric team.. 5. Dressing Change/Wound Care: Do not change or remove surgical dressings unless they are wet or soiled. 6. Call your doctor if: - Your temperature exceeds 101.5 F - You experience excessive pain or swelling - You have an unexpected reaction to medication - You have excessive bleeding - You experience continued vomiting/nausea - Your incision begins to separate - Your incision shows signs of infection such as increased redness, swelling, excessive pain, heat, or drainage (light blood or clear fluid is normal) 7. General instructions: No lifting greater than 5 lbs for 1 week and not more than 20lbs the next 3?weeks. No driving until seen at the office in 5-7 days after surgery. If you do not move your bowels in the next 2 days, please tell?Dr. Tyler. Please walk around your home every hour or two to prevent blood clots from forming in your legs. You do not need to wake from sleeping to walk. Please sleep in a bed or couch to prevent kinking at the hips and knees. Please take your incentive spirometer (your lung communication assistant) home with you and use it for the next few days to prevent pneumonia. You may shower, no hot tubs, baths or swimming pools.?Please follow the post op diet instructions you are?given by Dr Gray fry? and text me daily at 5-6pm for an update.?If you have any issues or concerns or questions please communicate this to him via text.? The Celebrate shakes have all of the bariatric vitamins you need if you consume these shakes. If you are drinking other protein shakes, you will need to purchase the Celebrate multivitamins and calcium that are available in the hospital gift shop on the first floor of the main hospital.??Do not take anything without first discussing with Dr Tyler. Please make sure you are consuming at least 40 ounces of fluids per day starting the?day AFTER your discharge from the hospital. Always drink 1-2 ml per minute using the 5ml?syringe. If you drink faster you may experience?bloating,?gas pain, burping, nausea or heartburn. In that case please slow down your pace and use the syringe to?understand better the?proper?pace and volume of drinking. Do not hesitate to contact the office with any questions at . The patient's medical history has been reviewed and they are considered low risk for post op DVT and therefore DVT prophylaxis is not considered necessary. Travel after surgery was reviewed. The patient has not disclosed any travel plans during the first 30 days after surgery and they have been advised that within the first 30 days after surgery any bus, plane, train or car travel over 2 hours in duration is contraindicated due to the possibility of developing blood clots from immobility. Any travel, needs to include periods of ambulation of 10 minutes in duration every 2 hours. The patient was instructed to discuss any plans for travel during this period with their bariatric surgeon. Assessment: stable, post op sleeve gastrectomy Discharge Date/Time: 03/16/23 10:34
== END 2023-03-16 10:34 | disposition home or self-care (01) | DRG 403 ==
LOC: HO.SSSA 10:05 → HO.S3 14:17
PROVIDERS: Physician Assistant; Admitting Provider Surgery; PCP Internal Medicine; Visit Provider Surgery
PROC: 0DB64Z3 Excision of Stomach, Percutaneous Endoscopic Approach, Vertical (ICD-10-PCS; CPT 43845; principal; 2023-03-15 12:20)
DX: E66.01 Morbid (severe) obesity due to excess calories (principal); K76.0 Fatty (change of) liver, not elsewhere classified; E28.2 Polycystic ovarian syndrome; G43.909 Migraine, unspecified, not intractable, without status migrainosus; G47.00 Insomnia, unspecified; F41.9 Anxiety disorder, unspecified; F32.A Depression, unspecified; K21.9 Gastro-esophageal reflux disease without esophagitis; Z68.37 Body mass index [BMI] 37.0-37.9, adult; Z79.899 Other long term (current) drug therapy
CPT/HCPCS: 36415; 80048; 85014; 85018; 85025; 86850; 86900; 86901; 88304; 88305; 88307; 88342; A4649; C9088; C9145; J0131; J0690; J1100; J1170; J2250; J2405; J2795; J3010

== ENCOUNTER → 2023-03-15 10:03 | Outpatient (BNV) | payer MEDICAID, SELFPAY ==
--- NOTE | 2023-03-16 12:14 | MHC.AM.THDIN ---
Telehealth Discharge Summary Status Towards Meeting Goals (NM=Not Met, PM=Partially Met, M=Met, D/C=Discontinued) Goal 1. [Keyword] []NM []PM []M []D/C Comments: [] Goal 2. [Keyword] []NM []PM []M []D/C Comments: [] Goal 3. [Keyword] []NM []PM []M []D/C Comments: [] Goal 4. [Keyword] []NM []PM []M []D/C Comments: [] Goal 5. [Keyword] []NM []PM []M []D/C Comments: [] Goal 6. [Keyword] []NM []PM []M []D/C Comments: [] Goal 7. [Keyword] []NM []PM []M []D/C Comments: [] Goal 8. [Keyword] []NM []PM []M []D/C Comments: [] Diagnosis at Intake & Discharge Diagnosis at Intake [] DSM-IV Codes [] DSM 5 Code [] ICD-9 Codes [] ICD-10 Codes Check Primary/Billing Diagnosis Code Narrative Description [] [] [] [] [] [] Diagnosis at Discharge/Transition [] DSM-IV Codes [] DSM 5 Code [] ICD-9 Codes [] ICD-10 Codes Check Primary/Billing Diagnosis Code Narrative Description [] [] [] [] [] [] Referred To Referred To (Agency/Program Name, Location, and Contact Information): For (describe recommended services/supports, rationale, list dates/times of appointments if known): Date(s)/Time(s) of Appts. If Known: [] [] [] [] [] [] (Include information on symptoms person should watch for, options available if these symptoms recur, additional services needed, and/or follow-up plans):
== END ==
PROVIDERS: Admitting Provider Surgery; PCP Internal Medicine; Visit Provider Surgery
DX: E66.9 Obesity, unspecified (principal); Z68.37 Body mass index [BMI] 37.0-37.9, adult
CPT/HCPCS: 43659; 43775

== ENCOUNTER 2023-03-17 12:05 | Outpatient (AMB) | payer MEDICAID, SELFPAY ==
--- NOTE | 2023-03-17 12:16 | A.OFFVIS_ITS ---
Intake VS Expanded 03/17/23 12:20 BP 105/53 L Blood Pressure Location Rt brachial Blood Pressure Position Sitting Pulse 87 Pulse Source Pulse Oximeter Temp 97.3 F Temperature Source Temporal Artery Scan Pulse Oximetry 100 Oxygen Delivery Method Room Air Intake Visit Reasons: (OV) 2 day PO LSG 03/15/23 Allergies No Known Allergies Allergy (Verified 03/17/23 12:20) Medication List - Last Reconciled 03/17/23 by MOLINA ValdezC mirtazapine 7.5 - 15 mg PO BEDTIME PRN ondansetron 4 mg PO Q6H PRN pantoprazole 40 mg PO DAILY sucralfate 10 mL PO BID venlafaxine ER 75 mg PO DAILY HPI HPI Comments History of Present Illness Details Pt called service yesterday because she was worried about a new lump in her breast that she found since surgery , she asked if we can check her. POD #2 s/p LSG no n/v/emesis, tolerating post op meal plan per Dr Castellano's instructions. Has notice painless lump in right breast over last few days only when lying down. FORMERLY [facility], [facility] Medical History (Updated 03/17/23 @ 12:28 by Deepika Rose PA-C) Migraines COVID-19 Anxiety Depression Insomnia PCOS (polycystic ovarian syndrome) Morbid obesity Surgical History Hx of tubal ligation Family History Mother Cancer Father No problems noted. Daughter No problems noted. Son ADHD Son No problems noted. Son No problems noted. 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 - [employer] Physical Exam Vital Signs: Last Vital Signs Temp 97.3 F 03/17/23 12:20 Pulse 87 03/17/23 12:20 BP 105/53 L 03/17/23 12:20 Pulse Ox 100 03/17/23 12:20 Oxygen Delivery Method Room Air 03/17/23 12:20 Const General: cooperative, healthy appearing and no acute distress Chest Breast/axilla inspection: normal inspection of the breasts (normal palpation of R breast, fatty tissue, non tender) GI Inspection: Yes incision (dressings all c/d/i) Palpation (GI): Soft to palpation, nontender and no guarding Assessment & Plan Assessment & Plan (1) Normal breast exam: Code(s): Z00.00 - Encounter for general adult medical examination without abnormal findings Plan: Reassured patient that there is no discrete mass in breast. Due to weight loss the fatty tissue in breast is changing. No follow up needed. (2) S/P laparoscopic sleeve gastrectomy: Code(s): Z98.84 - Bariatric surgery status Plan: Stable, contineu plans per Dr Castellano, will have 1 week post op appt on 03/21 Coding Level of Care Code Global (57468) Diagnoses Normal breast exam Z00.00 S/P laparoscopic sleeve gastrectomy Z98.84
[2023-03-17 12:20] VITALS: BP 105/53; PULSE 87; TEMP 36.3; O2SAT 100
== END 2023-03-17 12:29 | disposition home or self-care (01) ==
PROVIDERS: PCP Internal Medicine; Visit Provider Physician Assistant
DX: E66.9 Obesity, unspecified (principal); Z90.3 Acquired absence of stomach [part of]; Z98.84 Bariatric surgery status
CPT/HCPCS: 99024

== ENCOUNTER → 2023-03-17 12:05 | Outpatient (BNVA) | payer MEDICAID, SELFPAY | PROVIDERS: PCP Internal Medicine; Visit Provider Physician Assistant ==

== ENCOUNTER 2023-03-21 10:12 | Outpatient (AMB) | payer MEDICAID, SELFPAY ==
--- NOTE | 2023-03-21 10:49 | MHC.OFFVISWM ---
Intake VS Expanded 03/21/23 11:03 BP 114/59 L Blood Pressure Location Rt brachial Blood Pressure Position Sitting Pulse 97 Pulse Source Pulse Oximeter Temp 97.4 F Temperature Source Temporal Artery Scan Pulse Oximetry 99 Oxygen Delivery Method Room Air Height 5 ft 1 in Weight 190 lb 12.8 oz BMI 36.0 Body Fat % 46.9 Body Fat Mass 89.6 Fat Free Mass 101.2 Visceral Fat Rating 10.0 Body Water % 38.2 Body Water Mass 72.8 Muscle Mass/Score 96.2 Basal Metabolic Rate/Score 1,466 Intake Visit Reasons: (OV) 6 Days PO LSG 03/15/23 Home Health Rn Required: No Allergies No Known Allergies Allergy (Verified 03/21/23 10:52) Medication List - Last Reconciled 03/21/23 by CIRA Hooper mirtazapine 7.5 - 15 mg PO BEDTIME PRN pantoprazole 40 mg PO DAILY sucralfate 10 mL PO BID venlafaxine ER 75 mg PO DAILY HPI HPI Comments History of Present Illness Details Patient is a pleasant 32-year-old female who returns to the office today in follow-up, she is postop day 6., status post laparoscopic sleeve gastrectomy performed on 03/15/2023. She reports overall doing very well, she is tolerating 3 celebrate 4 in 1 shakes with 1 screw beach in 8 oz of almond milk and a total of 40-50 oz of fluids daily. She has moved her bowels, denies any pain, and has no significant complaints at today's visit. [facility] Medical History (Updated 03/17/23 @ 12:28 by Deepika Rose PA-C) Migraines COVID-19 Anxiety Depression Insomnia PCOS (polycystic ovarian syndrome) Morbid obesity Surgical History (Updated 03/21/23 @ 10:52 by Elizabeth Parks CMA) S/P laparoscopic sleeve gastrectomy Hx of tubal ligation Family History Mother Cancer Father No problems noted. Daughter No problems noted. Son ADHD Son No problems noted. Son No problems noted. 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 Original weight on 10/19/2022 was 214 pounds and op weight was 201.5 pounds. Be sure to text Dr Tyler exactly 1 week after surgery your weight from your home scale so he can adjust your meal plan. Continue meal plan until f/u w Deepika in 2 weeks May shower, no submersion in bath for another week Continue abdominal binder with activity and exercise for the next 2 weeks. Exercise prior to surgery was treadmill, may resume No abdominal exercises for 6 weeks post operatively Will be emailed link to post op video for review Reminded of the pace of drinking, 2 mL per minute, 1 oz/15 min. Coding Level of Care Code Global (68895) Diagnoses S/P laparoscopic sleeve gastrectomy Z98.84
[2023-03-21 11:03] VITALS: BP 114/59; PULSE 97; TEMP 36.3; O2SAT 99; BMI 36.0
== END 2023-03-21 11:13 | disposition home or self-care (01) ==
PROVIDERS: PCP Internal Medicine; Visit Provider Physician Assistant Surgical
DX: E66.9 Obesity, unspecified (principal); Z68.36 Body mass index [BMI] 36.0-36.9, adult; Z90.3 Acquired absence of stomach [part of]; Z98.84 Bariatric surgery status
CPT/HCPCS: 99024

== ENCOUNTER → 2023-03-21 10:12 | Outpatient (BNVA) | payer MEDICAID, SELFPAY | PROVIDERS: PCP Internal Medicine; Visit Provider Physician Assistant Surgical ==

== ENCOUNTER 2023-04-21 10:54 | Outpatient (AMB) | payer MEDICAID, SELFPAY ==
--- NOTE | 2023-04-21 10:53 | A.OFFVIS_ITS ---
Intake VS Expanded 04/21/23 11:10 Height 5 ft 1 in Weight 182 lb BMI 34.4 Intake Visit Reasons: VIDEO PO LSG 03/15/23 [place] Attendant Required: No Allergies No Known Allergies Allergy (Verified 03/21/23 10:52) HPI Nutrition Presentation Details PO LSG 03/15/23 preop weight 202# last weight at 1wk PO 190# current weight 182# Reason for consult elevated BMI Diet Assmnt Details using 4in1 powder Two shakes with 1 scoop powder and one shake with 2 scoops powder 1 protein bar Pt shares she would like to advance diet Hydration: 20-40oz states struggling with mental health as a result of program. speaks about feelings regarding not being good enough. Will refer to Halina . Pt reports constipation,but improving Dietary counseling reduction Diagnosis Nutrition problem #1 overweight/obesity As related to (etiology) #1 excess energy intake and physical inactivity As evidenced by (sign/symptom) #1 high BMI Monitoring/Goals Nutrition problem monitoring total energy intake, level of knowledge/skill, total PRO intake, total CHO intake, weight and oral fluids Outcome progress progressing Learning/Education Readiness to learn excellent Stages of change action Educational materials provided Yes Most Recent Diabetes Results: Cholesterol 191 mg/dL (<200) 03/06/23 HDL Cholesterol 40 mg/dL (>40) L 03/06/23 Triglycerides 105 mg/dL (<150) 03/06/23 Creatinine 0.66 mg/dL (0.5-1.4) 03/16/23 Blood Urea Nitrogen 6 mg/dL (9-16) L 03/16/23 Sodium 136 mmol/L (135-145) 03/16/23 Potassium 3.9 mmol/L (3.3-5.1) 03/16/23 Chloride 105 mmol/L (96-108) 03/16/23 Carbon Dioxide 20 mmol/L (22-29) L 03/16/23 Calcium 9.0 mg/dL (8.4-10.2) 03/16/23 AST 22 U/L (5-31) 03/06/23 ALT 30 U/L (0-31) 03/06/23 Total Protein 7.9 g/dL (6.5-8.0) 03/06/23 Albumin 4.5 g/dL (3.5-5.0) 03/06/23 [facility] Medical History (Updated 03/25/23 @ 16:17 by Alex Tyler MD) BMI 37.0-37.9, adult Migraines COVID-19 Anxiety Depression Insomnia PCOS (polycystic ovarian syndrome) Morbid obesity Surgical History (Updated 03/24/23 @ 00:01 by Sandra Teresa) S/P laparoscopic sleeve gastrectomy Hx of tubal ligation Family History Mother Cancer Father No problems noted. Daughter No problems noted. Son ADHD Son No problems noted. Son No problems noted. 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 encouraged adequate hydration. f/u with me 2 weeks Telehealth Telehealth Location of provider rendering services: practice address Location of patient: address on file Patient Identification confirmed using: Name, : Yes Telehealth method: voice only Patient verbally consented to treatment: Yes Patient verbally consented to billing insurance company: Yes Patient informed of any privacy concerns related to visit: Yes Minutes spent on Phone/Video with Pt.: 30 Coding Level of Care Code Nutr Indiv Subseq ([id number]) Diagnoses Obesity (BMI 30-39.9) E66.9 Time Spent (min) 30
[2023-04-21 11:10] VITALS: BMI 34.4
== END 2023-04-21 12:04 | disposition home or self-care (01) ==
LOC: HO.HBS 10:54
PROVIDERS: PCP Internal Medicine; Visit Provider Dietitian, Registered
DX: E66.9 Obesity, unspecified (principal)

== ENCOUNTER → 2023-04-21 10:54 | Outpatient (BNVA) | payer MEDICAID, SELFPAY | PROVIDERS: PCP Internal Medicine; Visit Provider Dietitian, Registered | DX: E66.9 Obesity, unspecified (principal); Z68.34 Body mass index [BMI] 34.0-34.9, adult | CPT/HCPCS: 97803 ==

== ENCOUNTER 2023-05-05 14:06 | Outpatient (AMB) | payer MEDICAID, SELFPAY ==
--- NOTE | 2023-05-05 14:01 | MHC.AMNUTRGE ---
Intake Intake Visit Reasons: (TV) PO LSG 03/15/23 Allergies No Known Allergies Allergy (Verified 03/21/23 10:52) HPI Nutrition Presentation Details PO LSG 03/15/23 preop weight 202# last weight at 1wk PO 190# Last weight 182# 7 weeks post op - did not ask. last appt reported feeling triggered by the scale Reason for consult elevated BMI Diet Assmnt Details using 4in1 - Two shakes each with 2 scoops powder with 8oz fairlife milk - feels good with this, not hungry, meeting protein needs 1oz protein , feels comfortable with this Hydration: 20-40oz states struggling with mental health as a result of program. speaks about feelings regarding not being good enough. today speaks about how in her culture, food is a major focus and she feels a lot of pressure to accept foods Will refer to BH . was supposed to have appt scheduled but never was scheduled. Pt reports constipation,but continues to improve Dietary counseling reduction Diagnosis Nutrition problem #1 overweight/obesity As related to (etiology) #1 excess energy intake and physical inactivity As evidenced by (sign/symptom) #1 high BMI Monitoring/Goals Nutrition problem monitoring total energy intake, level of knowledge/skill, total PRO intake, total CHO intake, weight and oral fluids Outcome progress progressing Learning/Education Readiness to learn good Stages of change action Educational materials provided Yes Most Recent Diabetes Results: Cholesterol 191 mg/dL (<200) 03/06/23 HDL Cholesterol 40 mg/dL (>40) L 03/06/23 Triglycerides 105 mg/dL (<150) 03/06/23 Creatinine 0.66 mg/dL (0.5-1.4) 03/16/23 Blood Urea Nitrogen 6 mg/dL (9-16) L 03/16/23 Sodium 136 mmol/L (135-145) 03/16/23 Potassium 3.9 mmol/L (3.3-5.1) 03/16/23 Chloride 105 mmol/L (96-108) 03/16/23 Carbon Dioxide 20 mmol/L (22-29) L 03/16/23 Calcium 9.0 mg/dL (8.4-10.2) 03/16/23 AST 22 U/L (5-31) 03/06/23 ALT 30 U/L (0-31) 10/16/23 Total Protein 7.9 g/dL (6.5-8.0) 03/06/23 Albumin 4.5 g/dL (3.5-5.0) 03/06/23 [facility] Medical History (Updated 03/25/23 @ 16:17 by Alex Tyler MD) BMI 37.0-37.9, adult Migraines COVID-19 Anxiety Depression Insomnia PCOS (polycystic ovarian syndrome) Morbid obesity Surgical History (Updated 03/24/23 @ 00:01 by Sandra Teresa) S/P laparoscopic sleeve gastrectomy Hx of tubal ligation Family History Mother Cancer Father No problems noted. Daughter No problems noted. Son ADHD Son No problems noted. Son No problems noted. 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 f/u in 3 weeks Patient Instructions: talked about the equal importance of non-scale victories, mindful food choices, and other self monitoring tools Telehealth Telehealth Location of provider rendering services: practice address Location of patient: address on file Patient Identification confirmed using: Name, : Yes Telehealth method: voice only Patient verbally consented to treatment: Yes Patient verbally consented to billing insurance company: Yes Patient informed of any privacy concerns related to visit: Yes Minutes spent on Phone/Video with Pt.: 25 Coding Level of Care Code Nutr Indiv Subseq ([id number]) Diagnoses Obesity (BMI 30-39.9) E66.9 Time Spent (min) 25
== END 2023-05-05 14:27 | disposition home or self-care (01) ==
LOC: HO.HBS 14:06
PROVIDERS: PCP Internal Medicine; Visit Provider Dietitian, Registered
DX: E66.9 Obesity, unspecified (principal)

== ENCOUNTER → 2023-05-05 14:06 | Outpatient (BNVA) | payer MEDICAID, SELFPAY | PROVIDERS: PCP Internal Medicine; Visit Provider Dietitian, Registered | DX: E66.9 Obesity, unspecified (principal) | CPT/HCPCS: 97803 ==

== ENCOUNTER 2023-05-26 15:13 | Outpatient (AMB) | payer MEDICAID, SELFPAY ==
--- NOTE | 2023-05-26 15:06 | MHC.AMNUTRGE ---
Intake Intake Visit Reasons: VIDEO PO LSG 03/15/23 Allergies No Known Allergies Allergy (Verified 03/21/23 10:52) HPI Nutrition Presentation Details PO LSG 03/15/23 preop weight 202# weight at 1wk PO 190# Last weight 182# 7 weeks post op - did not ask. last appt reported feeling triggered by the scale current weight - did not have a weight for today Reason for consult elevated BMI Diet Assmnt Details Is feeling very tired, but reports not sleeping well. We discussed the possible connection to her menstrual cycle using 4in1 - Two shakes each with 2 scoops powder with 8oz fairlife milk - feels good with this, not hungry, meeting protein needs 1oz protein and 1oz veg I am feeling better now having more food variety Hydration: 20-40oz states struggling with mental health as a result of program. speaks about feelings regarding not being good enough. today speaks about how in her culture, food is a major focus and she feels a lot of pressure to accept foods was supposed to have appt scheduled with olivia but never was scheduled - she has established w a therapist now and is better Pt reports constipation,but continues to improve Dietary counseling reduction Diagnosis Nutrition problem #1 overweight/obesity As related to (etiology) #1 excess energy intake and physical inactivity As evidenced by (sign/symptom) #1 high BMI Monitoring/Goals Nutrition problem monitoring total energy intake, level of knowledge/skill, total PRO intake, total CHO intake, weight and oral fluids Outcome progress progressing Learning/Education Readiness to learn good Stages of change action Most Recent Diabetes Results: Creatinine 0.66 mg/dL (0.5-1.4) 03/16/23 Blood Urea Nitrogen 6 mg/dL (9-16) L 03/16/23 Sodium 136 mmol/L (135-145) 03/16/23 Potassium 3.9 mmol/L (3.3-5.1) 03/16/23 Chloride 105 mmol/L (96-108) 03/16/23 Carbon Dioxide 20 mmol/L (22-29) L 03/16/23 Calcium 9.0 mg/dL (8.4-10.2) 03/16/23 [facility] Medical History (Updated 03/25/23 @ 16:17 by Alex Tyler MD) BMI 37.0-37.9, adult Migraines COVID-19 Anxiety Depression Insomnia PCOS (polycystic ovarian syndrome) Morbid obesity Surgical History (Updated 03/24/23 @ 00:01 by Sandra Teresa) S/P laparoscopic sleeve gastrectomy Hx of tubal ligation Family History Mother Cancer Father No problems noted. Daughter No problems noted. Son ADHD Son No problems noted. Son No problems noted. 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 f/u in 3 weeks 06/15 at 3pm Telehealth Telehealth Location of provider rendering services: practice address Location of patient: address on file Patient Identification confirmed using: Name, : Yes Telehealth method: voice only Patient verbally consented to treatment: Yes Patient verbally consented to billing insurance company: Yes Patient informed of any privacy concerns related to visit: Yes Minutes spent on Phone/Video with Pt.: 15 Coding Level of Care Code Nutr Indiv Subseq ([id number]) Diagnoses Obesity (BMI 30-39.9) E66.9 Time Spent (min) 15
== END 2023-05-26 15:19 | disposition home or self-care (01) ==
LOC: HO.HBS 15:13
PROVIDERS: PCP Internal Medicine; Visit Provider Dietitian, Registered
DX: E66.9 Obesity, unspecified (principal)

== ENCOUNTER → 2023-05-26 15:13 | Outpatient (BNVA) | payer MEDICAID, SELFPAY | PROVIDERS: PCP Internal Medicine; Visit Provider Dietitian, Registered | DX: E66.9 Obesity, unspecified (principal) | CPT/HCPCS: 97803 ==

== ENCOUNTER 2023-06-15 15:23 | Outpatient (AMB) | payer MEDICAID, SELFPAY ==
--- NOTE | 2023-06-15 15:07 | A.OFFVIS_ITS ---
Intake VS Expanded 06/15/23 15:29 Height 5 ft 1 in Weight 173 lb BMI 32.7 Intake Visit Reasons: (TV) PO LSG 03/15/23 Allergies No Known Allergies Allergy (Verified 03/21/23 10:52) HPI Nutrition Presentation Details PO LSG 03/15/23 preop weight 202# weight at 1wk PO 190# Last weight 182# 7 weeks post op - did not ask. last appt s reported feeling triggered by the scale current weight at 3 MO PO 173# Reason for consult elevated BMI Diet Assmnt Details she enjoys her protein shakees but is feeling like its not enough. using 4in1 - Two shakes each with 2 scoops powder with 8oz fairlife milk 1oz protein and 1oz veg - feels this is not enough however. Hydration: 20-40oz states struggling with mental health as a result of program. speaks about feelings regarding not being good enough. today speaks about how in her culture, food is a major focus and she feels a lot of pressure to accept foods she has established w a therapist now and doing well. Pt reports constipation,but continues to improve Dietary counseling reduction Diagnosis Nutrition problem #1 overweight/obesity As related to (etiology) #1 excess energy intake and physical inactivity As evidenced by (sign/symptom) #1 high BMI Monitoring/Goals Nutrition problem monitoring total energy intake, level of knowledge/skill, total PRO intake, total CHO intake, weight and oral fluids Outcome progress progressing Learning/Education Readiness to learn good Stages of change action Most Recent Diabetes Results: No Data to Display [facility] Medical History (Updated 03/25/23 @ 16:17 by Alex Tyler MD) BMI 37.0-37.9, adult Migraines COVID-19 Anxiety Depression Insomnia PCOS (polycystic ovarian syndrome) Morbid obesity Surgical History (Updated 03/24/23 @ 00:01 by Sandra Teresa) S/P laparoscopic sleeve gastrectomy Hx of tubal ligation Family History Mother Cancer Father No problems noted. Daughter No problems noted. Son ADHD Son No problems noted. Son No problems noted. 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 advance to raw veg. f/u 07/17 at 3pm Telehealth Telehealth Location of provider rendering services: practice address Location of patient: address on file Patient Identification confirmed using: Name, : Yes Telehealth method: voice only Patient verbally consented to treatment: Yes Patient verbally consented to billing insurance company: Yes Patient informed of any privacy concerns related to visit: Yes Minutes spent on Phone/Video with Pt.: 20 Coding Level of Care Code Nutr Indiv Subseq ([id number]) Diagnoses Obesity (BMI 30-39.9) E66.9 Time Spent (min) 20
[2023-06-15 15:29] VITALS: BMI 32.7
== END 2023-06-15 15:28 | disposition home or self-care (01) ==
LOC: HO.HBS 15:24
PROVIDERS: PCP Internal Medicine; Visit Provider Dietitian, Registered
DX: E66.9 Obesity, unspecified (principal)

== ENCOUNTER → 2023-06-15 15:23 | Outpatient (BNVA) | payer MEDICAID, SELFPAY | PROVIDERS: PCP Internal Medicine; Visit Provider Dietitian, Registered | DX: E66.9 Obesity, unspecified (principal); Z68.32 Body mass index [BMI] 32.0-32.9, adult | CPT/HCPCS: 97803 ==

== ENCOUNTER 2023-07-17 14:10 | Outpatient (AMB) | payer MEDICAID, SELFPAY ==
--- NOTE | 2023-07-17 14:05 | A.OFFVIS_ITS ---
Intake VS Expanded 07/17/23 14:13 Height 5 ft 1 in Weight 168 lb BMI 31.7 Intake Visit Reasons: VIDEO PO LSG 03/15/23 Press Tender Smoke Signal Required: No Allergies No Known Allergies Allergy (Verified 03/21/23 10:52) HPI Nutrition Presentation Details PO LSG 03/15/23 preop weight 202# weight at 1wk PO 190# 7 weeks post op - did not ask.reported f eeling triggered by the scale weight at 3 MO PO 173# current weight at 4 MO PO 168# Reason for consult elevated BMI Diet Assmnt Details Used to really enjoy her protein shakes but reports she hasn't been wanting to drink the 4in1 any longer. was using 4in1 and 2 small meals 1-2oz protein, 1oz veg Has Pure protein bars or fitcrunch Hydration: 20-40oz Exercise: treadmill , also has a treadmill desk ; her goal is to be able to run around with her children outside. states struggling with mental health as a result of program. speaks about feelings regarding not being good enough. today speaks about how in her culture, food is a major focus and she feels a lot of pressure to accept foods she has established w a therapist now and doing well. Had a PCP appointment last week and reports MD took her off all medications. Dietary counseling reduction Diagnosis Nutrition problem #1 overweight/obesity As related to (etiology) #1 excess energy intake and physical inactivity As evidenced by (sign/symptom) #1 high BMI Monitoring/Goals Nutrition problem monitoring total energy intake, level of knowledge/skill, t otal PRO intake, total CHO intake, weight and oral fluids Outcome progress progressing Learning/Education Readiness to learn good Stages of change action Most Recent Diabetes Results: No Data to Display [facility] Medical History (Updated 03/25/23 @ 16:17 by Alex Tyler MD) BMI 37.0-37.9, adult Migraines COVID-19 Anxiety Depression Insomnia PCOS (polycystic ovarian syndrome) Morbid obesity Surgical History (Updated 03/24/23 @ 00:01 by Sandra Teresa) S/P laparoscopic sleeve gastrectomy Hx of tubal ligation Family History Mother Cancer Father No problems noted. Daughter No problems noted. Son ADHD Son No problems noted. Son No problems noted. 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 - [employer] Assessment & Plan Assessment & Plan (1) Obesity (BMI 30-39.9): Code(s): E66.9 - Obesity, unspecified Plan will switch to premier shake, plus 1 bar and 2 meals (each 2oz protein, and 1oz veg) Telehealth Telehealth Location of provider rendering services: practice address Location of patient: address on file Patient Identification confirmed using: Name, : Yes Telehealth method: voice only Patient verbally consented to treatment: Yes Patient verbally consented to billing insurance company: Yes Patient informed of any privacy concerns related to visit: Yes Minutes spent on Phone/Video with Pt.: 25 Coding Level of Care Code Nutr Indiv Subseq ([id number]) Diagnoses Obesity (BMI 30-39.9) E66.9 Time Spent (min) 25
[2023-07-17 14:13] VITALS: BMI 31.7
== END 2023-07-17 14:17 | disposition home or self-care (01) ==
LOC: HO.HBS 14:11
PROVIDERS: PCP Internal Medicine; Visit Provider Dietitian, Registered
DX: E66.9 Obesity, unspecified (principal)

== ENCOUNTER → 2023-07-17 14:10 | Outpatient (BNVA) | payer MEDICAID, SELFPAY | PROVIDERS: PCP Internal Medicine; Visit Provider Dietitian, Registered | DX: E66.9 Obesity, unspecified (principal); Z68.31 Body mass index [BMI] 31.0-31.9, adult | CPT/HCPCS: 97803 ==

== ENCOUNTER 2023-08-18 10:43 | Outpatient (AMB) | payer MEDICAID, SELFPAY ==
--- NOTE | 2023-08-18 10:36 | A.OFFVIS_ITS ---
Intake VS Expanded 08/18/23 10:39 Height 5 ft 1 in Weight 164 lb BMI 31.0 Intake Visit Reasons: (TV) PO LSG 03/15/23 Allergies No Known Allergies Allergy (Verified 03/21/23 10:52) HPI Nutrition Presentation Details PO LSG 03/15/23 preop weight 202# weight at 1wk PO 190# weight at 3 MO PO 173# weight at 4 MO PO 168# Current weight 5 MO PO 164# Reason for consult elevated BMI Diet Assmnt Details premier shake, 1 bar and 2 meals (each 2oz protein, and 1oz veg) Hydration: 20-40oz Exercise: treadmill 5x per week, also has a treadmill desk ; trying to do some more weight training 3x/week states struggling with mental health as a result of program. speaks about feelings regarding not being good enough. today speaks about how in her culture, food is a major focus and she feels a lot of pressure to accept foods she has established w a therapist now and doing well. Diagnosis Nutrition problem #1 overweight/obesity As related to (etiology) #1 excess energy intake and physical inactivity As evidenced by (sign/symptom) #1 high BMI Monitoring/Goals Nutrition problem monitoring total energy intake, level of knowledge/skill, total PRO intake, total CHO intake, weight and oral fluids Outcome progress progressing Learning/Education Readiness to learn good Stages of change action Most Recent Diabetes Results: No Data to Display [facility] Medical History (Updated 03/25/23 @ 16:17 by Alex Tyler MD) BMI 37.0-37.9, adult Migraines COVID-19 Anxiety Depression Insomnia PCOS (polycystic ovarian syndrome) Morbid obesity Surgical History (Updated 03/24/23 @ 00:01 by Sandra Teresa) S/P laparoscopic sleeve gastrectomy Hx of tubal ligation Family History Mother Cancer Father No problems noted. Daughter No problems noted. Son ADHD Son No problems noted. Son No problems noted. 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 continue to challenge herself with exercise. next appt with PA for 6 MO routine appt Telehealth Telehealth Location of provider rendering services: practice address Location of patient: address on file Patient Identification confirmed using: Name, : Yes Telehealth method: voice only Patient verbally consented to treatment: Yes Patient verbally consented to billing insurance company: Yes Patient informed of any privacy concerns related to visit: Yes Minutes spent on Phone/Video with Pt.: 10 Coding Level of Care Code Nutr Indiv Subseq ([id number]) Diagnoses Obesity (BMI 30-39.9) E66.9 Time Spent (min) 10
[2023-08-18 10:39] VITALS: BMI 31.0
== END 2023-08-18 11:03 | disposition home or self-care (01) ==
LOC: HO.HBS 10:43
PROVIDERS: PCP Internal Medicine; Visit Provider Dietitian, Registered
DX: E66.9 Obesity, unspecified (principal)

== ENCOUNTER → 2023-08-18 10:43 | Outpatient (BNVA) | payer MEDICAID, SELFPAY | PROVIDERS: PCP Internal Medicine; Visit Provider Dietitian, Registered | DX: E66.01 Morbid (severe) obesity due to excess calories (principal); Z71.3 Dietary counseling and surveillance; Z48.815 Encounter for surgical aftercare following surgery on the digestive system; Z98.84 Bariatric surgery status; Z68.31 Body mass index [BMI] 31.0-31.9, adult | CPT/HCPCS: 97803 ==

== ENCOUNTER 2023-09-06 15:38 | Emergency (ER) | payer OTHER, SELFPAY ==
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
[2023-09-06 15:48] VITALS: BP 122/60; PULSE 78; O2SAT 99
[2023-09-06 15:53] VITALS: BP 109/61; PULSE 89; RESP 18; TEMP 36.7; O2SAT 100; BMI 33.9
--- NOTE | 2023-09-06 15:58 | ECG_ITS ---
Test Reason : CHEST PRESSURE Blood Pressure : / mmHG Vent. Rate : 077 BPM Atrial Rate : 077 BPM P-R Int : 130 ms QRS Dur : 078 ms QT Int : 378 ms P-R-T Axes : 044 035 040 degrees QTc Int : 427 ms Normal sinus rhythm Normal ECG When compared with ECG of 21-OCT-2022 10:37, No significant change was found Referred By: Generic ED Physician Electronically Signed By:DANIEL DEMPSEY
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
[2023-09-06] MEDS: Acetaminophen 325 MG TABLET 650 MG PO (19:15)
[2023-09-06 19:18] VITALS: BP 100/64; PULSE 73; RESP 18; O2SAT 98
[2023-09-06 19:28] VITALS: BP 100/64; PULSE 73; RESP 18; TEMP 36.9; O2SAT 98
== END 2023-09-06 19:28 | disposition home or self-care (01) ==
PROVIDERS: Emergency Provider Emergency Medicine; PCP Internal Medicine
DX: S89.92XA Unspecified injury of left lower leg, initial encounter (principal); S49.92XA Unspecified injury of left shoulder and upper arm, initial encounter; R07.89 Other chest pain; M25.512 Pain in left shoulder; M25.562 Pain in left knee; M54.50 Low back pain, unspecified; V43.52XA Car driver injured in collision with other type car in traffic accident, initial encounter; Y93.9 Activity, unspecified; Y92.481 Parking lot as the place of occurrence of the external cause; Y99.8 Other external cause status; Z79.899 Other long term (current) drug therapy
CPT/HCPCS: 71046; 73030; 73562; 93005; 99283; 99285

== ENCOUNTER → 2023-09-06 15:58 | Outpatient (BNV) | payer OTHER, SELFPAY | PROVIDERS: Emergency Provider Emergency Medicine; PCP Internal Medicine; Visit Provider Internal Medicine | DX: E07.89 Other specified disorders of thyroid (principal) | CPT/HCPCS: 93010 ==

== ENCOUNTER 2023-09-21 12:13 | Outpatient (AMB) | payer OTHER, SELFPAY ==
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
[2023-09-21 12:25] VITALS: BP 109/70; PULSE 84; TEMP 35.9; O2SAT 95; BMI 30.2
== END 2023-09-21 13:00 | disposition home or self-care (01) ==
PROVIDERS: PCP Internal Medicine; Visit Provider Physician Assistant Surgical
DX: E66.9 Obesity, unspecified (principal); Z68.30 Body mass index [BMI] 30.0-30.9, adult; Z90.3 Acquired absence of stomach [part of]; Z98.84 Bariatric surgery status
CPT/HCPCS: 99214

== ENCOUNTER → 2023-09-21 12:13 | Outpatient (BNVA) | payer OTHER, SELFPAY | PROVIDERS: PCP Internal Medicine; Visit Provider Physician Assistant Surgical | DX: E66.9 Obesity, unspecified (principal); Z68.30 Body mass index [BMI] 30.0-30.9, adult; Z98.84 Bariatric surgery status | CPT/HCPCS: 99212 ==

== ENCOUNTER 2023-11-09 10:35 | Outpatient (REF) | payer OTHER, SELFPAY ==
[2023-11-09 10:45] LABS: MANUAL DIFF FLAG NO
[2023-11-09 12:59] LABS: Basophils Percent Auto 0.4 % (0-2); Eosinophils Absolute Auto 0.1 X10*3/uL (0.0-0.4); Eosinophils Percent Auto 1.7 % (0-4); Hemoglobin 12.5 g/dl (12.0-16.0); Imm Gran Abs Auto 0.01 X10*3/uL (0.00-0.03); Imm Gran Pct Auto 0.2 % (0.0-0.4); Lymphocytes Absolute Auto 1.8 X10*3/uL (1.2-4.9); Mean Corpuscular HGB Conc 32.1 g/dl (31.0-35.0); Mean Corpuscular Hemoglobin 24.6 pg (27.0-33.0); Mean Corpuscular Volume 76.8 fL (80.0-98.0); Mean Platelet Volume 11.9 fL (9.4-12.3); Monocytes Absolute Auto 0.4 X10*3/uL (0.1-1.2); Monocytes Percent Auto 7.8 % (2-11); Neutrophils Absolute Auto 2.5 x10*3/uL (2.0-8.3); Neutrophils Percent Auto 52.9 % (45-73); Platelet Count 220 X10*3/uL (160-400); Red Blood Count 5.08 X10*6/uL (4.20-5.50); Red Cell Distribution Width 16.3 % (11.0-16.0); White Blood Count 4.7 X10*3/uL (4.8-10.8)
[2023-11-09 13:32] LABS: Estimated Average Glucose 97 mg/dL
[2023-11-09 14:13] LABS: Folate 11.2 ng/mL (> or = 4.0); Vitamin B12 1109 pg/mL (200-900)
[2023-11-09 14:16] LABS: Alanine Aminotransferase 15 U/L (0-31); Albumin Level 4.4 g/dL (3.5-5.0); Alkaline Phosphatase 73 U/L (39-117); Anion Gap 13 (12-20); Aspartate Amino Transferase 16 U/L (5-31); Bilirubin Total 0.3 mg/dL (0.0-1.0); Blood Urea Nitrogen 19 mg/dL (9-16); C Reactive Protein 0.13 mg/dL (< or = 0.50); Calcium 9.7 mg/dL (8.4-10.2); Carbon Dioxide 25 mmol/L (22-29); Chloride 106 mmol/L (96-108); Cholesterol 187 mg/dL (<200); Estimated Glomerular Filt Rate > 60; Ferritin 14 ng/mL (10-122); Glucose Random 69 mg/dL (60-115); HDL Cholesterol 40 mg/dL (>40); Insulin 15 uU/mL (2-29); Iron 46 mcg/dL (30-160); LDL Cholesterol Calculated 129 mg/dL (<100); Percent Iron Saturation 14 % (15-50); Sodium 140 mmol/L (135-145); TSH reflex Free T4 0.79 uIU/mL (0.32-4.0); Total Iron Binding Capacity 318 mcg/dL (228-428); Total Protein 7.5 g/dL (6.5-8.0); Triglycerides 91 mg/dL (<150); Unsaturated Iron Binding 272 ug/dL; Vitamin D 25-OH Total 43.7 ng/mL (>30)
[2023-11-14 00:06] LABS: Zinc 68 mcg/dL (60-130)
== END 2023-11-09 10:36 | disposition home or self-care (01) ==
LOC: HO.LAB 10:35
PROVIDERS: PCP Internal Medicine; Visit Provider Physician Assistant Surgical
DX: K91.2 Postsurgical malabsorption, not elsewhere classified (principal)
CPT/HCPCS: 36415; 80053; 80061; 82306; 82607; 82728; 82746; 83036; 83525; 83540; 84425; 84443; 84590; 84630; 85025; 86140

== ENCOUNTER 2023-12-26 12:35 | Outpatient (AMB) | payer OTHER, SELFPAY ==
--- NOTE | 2023-12-26 12:38 | A.OFFVIS_ITS ---
VS Expanded 12/26/23 12:49 BP 99/68 Blood Pressure Location Rt brachial Blood Pressure Position Sitting Pulse 83 Pulse Source Pulse Oximeter Temp 96.9 F Temperature Source Temporal Artery Scan Pulse Oximetry 99 Oxygen Delivery Method Room Air Height 5 ft 1 in Weight 155 lb BMI 29.3 Body Fat % 36.6 Body Fat Mass 56.6 Fat Free Mass 98.4 Visceral Fat Rating 6.0 Body Water % 45.5 Body Water Mass 70.6 Muscle Mass/Score 93.2 Basal Metabolic Rate/Score 1,375 Intake Visit Reasons: (OV) PO LSG 03/15/23 Allergies No Known Allergies Allergy (Verified 12/26/23 12:42) Medication List - Last Reconciled 12/26/23 by CIRA Lentz clotrimazole 1% 1 appl topical BID cyclobenzaprine 10 mg PO TID PRN venlafaxine ER 75 mg PO DAILY HPI Comments Details: This?is a?33?yo female who is s/p LSG 03/15/2023. Presents for 9 month post op visit. Weight at last visit on 09/21/2023 was 160 pounds with a BMI of 30.2, weight today is 155 pounds, representing a 5 pound weight loss with a BMI today of 29.3.? No complaints of nausea, emesis, abdominal pain or reflux, or constipation. Her mom last month, emotionally a roller coaster. But tried to keep herself in check with eating habits, avoid emotional eating. Was in [place] for her mom's services, but also tried to be mindful there and keep protein bars available. Trying to celebrate nonscale victories. Present meal plan includes: premier shake with coffee, 1 bar (when she feels low in protein) and 2 meals (each 2oz protein, and 1oz veg) Hydration adequate MVI and Ca Exercise: PT 2x/week, cleared to use treadmill and weightlighting. Gym 3-4x/week Pt reports some problems of excess skin of abdomen. She has noticed worsening rashes in skin fold and increasing moisture. These are painful and have worsened over the summer with increased sweat. She has noticed some open areas. She wears compressive waistbands of pants/shorts to help hold skin in place. [facility] Medical History (Updated 12/26/23 @ 12:46 by CIRA Lentz) BMI 37.0-37.9, adult Migraines COVID-19 Anxiety Depression Insomnia PCOS (polycystic ovarian syndrome) Morbid obesity Surgical History (Updated 03/24/23 @ 00:01 by Sandra Teresa) S/P laparoscopic sleeve gastrectomy Hx of tubal ligation Family History Mother Cancer Father No problems noted. Daughter No problems noted. Son ADHD Son No problems noted. Son No problems noted. 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 Assessment & Plan Assessment & Plan (1) S/P laparoscopic sleeve gastrectomy: Code(s): Z98.84 - Bariatric surgery status Category: Surgical (2) Overweight: Code(s): E66.3 - Overweight Category: Medical Plan Discussed getting adequate protein, pt getting 80g per day usually but likely needs closer to 70g. Ok to use biotin if pt wants. Goal weight < 143lbs prior to skin removal surgery. Previous lab results reviewed. RTC 3 months for annual visit. I spent a total of 30 minutes reviewing/updating records, examining the patient and counseling the patient on weight management as detailed above.
[2023-12-26 12:49] VITALS: BP 99/68; PULSE 83; TEMP 36.1; O2SAT 99; BMI 29.3
== END 2023-12-26 13:05 | disposition home or self-care (01) ==
PROVIDERS: PCP Internal Medicine; Visit Provider Physician Assistant Surgical
DX: E66.3 Overweight (principal); Z68.29 Body mass index [BMI] 29.0-29.9, adult; Z90.3 Acquired absence of stomach [part of]; Z98.84 Bariatric surgery status
CPT/HCPCS: 99214

== ENCOUNTER → 2023-12-26 12:35 | Outpatient (BNVA) | payer OTHER, SELFPAY | PROVIDERS: PCP Internal Medicine; Visit Provider Physician Assistant Surgical | DX: E66.3 Overweight (principal); Z98.84 Bariatric surgery status; Z68.29 Body mass index [BMI] 29.0-29.9, adult | CPT/HCPCS: 99212 ==

== ENCOUNTER 2024-03-25 12:13 | Outpatient (AMB) | payer OTHER, SELFPAY ==
--- NOTE | 2024-03-25 12:31 | A.OFFVIS_ITS ---
VS Expanded 03/25/24 12:46 BP 123/60 Blood Pressure Location Rt brachial Blood Pressure Position Sitting Pulse 95 Pulse Source Pulse Oximeter Temp 98.5 F Temperature Source Temporal Artery Scan Pulse Oximetry 98 Oxygen Delivery Method Room Air Height 5 ft 1 in Weight 146 lb 12.8 oz BMI 27.7 Body Fat % 33.2 Body Fat Mass 48.8 Fat Free Mass 97.8 Visceral Fat Rating 5.0 Body Water % 47.8 Body Water Mass 70.2 Muscle Mass/Score 92.8 Basal Metabolic Rate/Score 1,354 Intake Visit Reasons: (OV) PO LSG 03/15/23 Allergies No Known Allergies Allergy (Verified 03/25/24 12:39) Medication List - Last Reconciled 03/25/24 by CIRA Lentz bupropion HCl SR 100 mg PO DAILY clotrimazole 1% 1 appl topical BID oxcarbazepine 300 mg PO BID HPI Comments Details: This?is a?34?yo female who is s/p LSG 03/15/2023. Presents for 1 year post op visit. Weight at last visit on 12/26/2023 was 155 pounds with a BMI of 29.3, weight today is 146.8 pounds, representing a 8.2 pound weight loss with a BMI today of 27.7.? No complaints of nausea, emesis, abdominal pain or reflux, or constipation. Present meal plan includes: premier shake with coffee, 1 bar (when she feels low in protein) and 2 meals (each 2oz protein, and 1oz veg) Hydration adequate MVI and Ca Exercise: PT 2x/week, cleared to use treadmill and weightlighting. Gym 3-4x/week Pt reports ongoing problems of excess skin of abdomen. She has noticed worsening rashes in skin fold and increasing moisture. These are painful and have worsened over the summer with increased sweat. She has noticed some open areas which causes pain when showering and water makes contact with the skin. She has tried clotrimazole ointment for these rashes but this has not completely solved the problem. She wears compressive waistbands of pants/shorts to help hold skin in place. Pt notes some discomfort of hips/lower back due to heaviness of excess skin. Pt notes limitation of mobility with normal activities of daily living including typical movement/walking/bending over/squatting. Have you been diagnosed with reflux (GERD)? Score 0-5: 0=no symptoms, 1=noticeable but not bothersome (slight or occasional), 2=noticeable, bothersome but not daily, 3=bothersome and daily, 4=affects daily activities, 5=incapacitating, unable to do daily activities How bad is the heartburn: 0 Heartburn when lying down: 0 Heartburn when standing up: 0 Heartburn after meals: 0 Does heartburn change your diet: 0 Does heartburn wake you up from sleep: 0 Do you have difficulty swallowin Do you have pain with swallowin If you take medication for reflux, does this affect your daily life: 0 Total score: 0 PFSH Medical History (Updated 03/25/24 @ 13:11 by CIRA Lentz) BMI 37.0-37.9, adult Migraines COVID-19 Anxiety Depression Insomnia PCOS (polycystic ovarian syndrome) Morbid obesity Surgical History S/P laparoscopic sleeve gastrectomy Hx of tubal ligation Family History Mother Cancer Father No problems noted. Daughter No problems noted. Son ADHD Son No problems noted. Son No problems noted. 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 - [employer] Physical Exam Vital Signs: Last Vital Signs Temp 98.5 F 03/25/24 12:46 Pulse 95 03/25/24 12:46 BP 123/60 03/25/24 12:46 Pulse Ox 98 03/25/24 12:46 Oxygen Delivery Method Room Air 03/25/24 12:46 BMI result Body Mass Index 27.7 Const General: cooperative, comfortable and no acute distress Orientation/consciousness: patient oriented x3 GI Other: soft, nontender, nondistended, incisions well healed, no hernia, no masses Grade II pannus, color changes of skin in crease noted (currently healed but consistent with previous open area) Neuro General: patient oriented x3 Assessment & Plan Assessment & Plan (1) Overweight: Code(s): E66.3 - Overweight Category: Medical (2) S/P laparoscopic sleeve gastrectomy: Code(s): Z98.84 - Bariatric surgery status Category: Medical (3) Excess skin: Code(s): L98.7 - Excessive and redundant skin and subcutaneous tissue Category: Medical Plan Pt doing well, 31.4% EBWL. Continue current meal plan and exercise regimen. Labs ordered. Pt is experiencing problems of excess skin of abdomen, resulting in frequent painful rashes refractory to rx treatment. In addition, she is experiencing limitation of physical function including pain/discomfort when performing activities of daily living, requiring the use of special clothing, and resulting in back pain due to weight of excess skin. She would benefit from definitive treatment of panniculectomy. Photos taken today. Pt anna text me when she reaches weight of 143 lbs for BMI < 27. I spent a total of 30 minutes reviewing/updating records, examining the patient and counseling the patient on weight management as detailed above. Orders: Orders Hemoglobin A1c Today E66.3 - Overweight, Z98.84 - Bariatric surgery status Complete Blood Count Auto Diff Today E66.3 - Overweight, Z98.84 - Bariatric surgery status IRON PROFILE Today E66.3 - Overweight, Z98.84 - Bariatric surgery status Comprehensive Met. Panel Today E66.3 - Overweight, Z98.84 - Bariatric surgery status Zinc Today E66.3 - Overweight, Z98.84 - Bariatric surgery status C Reactive Protein Today E66.3 - Overweight, Z98.84 - Bariatric surgery status Vitamin B1 Today E66.3 - Overweight, Z98.84 - Bariatric surgery status Vitamin A Today E66.3 - Overweight, Z98.84 - Bariatric surgery status TSH reflex Free T4 Today E66.3 - Overweight, Z98.84 - Bariatric surgery status Vitamin D 25-OH Total Today E66.3 - Overweight, Z98.84 - Bariatric surgery status Insulin Today E66.3 - Overweight, Z98.84 - Bariatric surgery status Lipid Panel Today E66.3 - Overweight, Z98.84 - Bariatric surgery status Vitamin B12 and Folate Today E66.3 - Overweight, Z98.84 - Bariatric surgery status Ferritin Today E66.3 - Overweight, Z98.84 - Bariatric surgery status
[2024-03-25 12:46] VITALS: BP 123/60; PULSE 95; TEMP 36.9; O2SAT 98; BMI 27.7
== END 2024-03-25 13:11 | disposition home or self-care (01) ==
LOC: HO.HBS 12:14
PROVIDERS: PCP Internal Medicine; Visit Provider Physician Assistant Surgical
DX: E66.3 Overweight (principal); Z68.27 Body mass index [BMI] 27.0-27.9, adult; Z98.84 Bariatric surgery status; L98.7 Excessive and redundant skin and subcutaneous tissue
CPT/HCPCS: 99214

== ENCOUNTER → 2024-03-25 12:13 | Outpatient (BNVA) | payer OTHER, SELFPAY | PROVIDERS: PCP Internal Medicine; Visit Provider Physician Assistant Surgical | DX: E66.3 Overweight (principal); L98.7 Excessive and redundant skin and subcutaneous tissue; Z71.3 Dietary counseling and surveillance; Z98.84 Bariatric surgery status; Z68.27 Body mass index [BMI] 27.0-27.9, adult | CPT/HCPCS: 99212 ==

== ENCOUNTER 2024-05-23 09:33 | Outpatient (REF) | payer OTHER, SELFPAY ==
[2024-05-23 10:53] LABS: MANUAL DIFF FLAG NO
[2024-05-23 11:05] LABS: Basophils Percent Auto 0.4 % (0-2); Eosinophils Absolute Auto 0.1 X10*3/uL (0.0-0.4); Eosinophils Percent Auto 1.2 % (0-4); Hematocrit 41.7 % (37.0-47.0); Hemoglobin 13.6 g/dl (12.0-16.0); Imm Gran Abs Auto 0.01 X10*3/uL (0.00-0.03); Imm Gran Pct Auto 0.2 % (0.0-0.4); Lymphocytes Absolute Auto 1.2 X10*3/uL (1.2-4.9); Lymphocytes Percent Auto 24.4 % (20-40); Mean Corpuscular HGB Conc 32.6 g/dl (31.0-35.0); Mean Corpuscular Hemoglobin 26.8 pg (27.0-33.0); Mean Corpuscular Volume 82.1 fL (80.0-98.0); Mean Platelet Volume 10.9 fL (9.4-12.3); Monocytes Absolute Auto 0.3 X10*3/uL (0.1-1.2); Monocytes Percent Auto 6.7 % (2-11); Neutrophils Absolute Auto 3.3 x10*3/uL (2.0-8.3); Neutrophils Percent Auto 67.1 % (45-73); Platelet Count 271 X10*3/uL (160-400); Red Blood Count 5.08 X10*6/uL (4.20-5.50); Red Cell Distribution Width 13.2 % (11.0-16.0)
[2024-05-23 11:14] LABS: Estimated Average Glucose 94 mg/dL; Hemoglobin A1C 105.6652 umol/L; Hemoglobin A1c % 4.9 % (<6.0); Total Hemoglobin (HGBA1C) 3509.2722 umol/L
[2024-05-23 11:21] LABS: Alanine Aminotransferase 27 U/L (0-31); Albumin Level 4.5 g/dL (3.5-5.0); Alkaline Phosphatase 77 U/L (39-117); Anion Gap 12 (12-20); Aspartate Amino Transferase 23 U/L (5-31); Bilirubin Total 0.4 mg/dL (0.0-1.0); Blood Urea Nitrogen 13 mg/dL (9-16); C Reactive Protein 0.17 mg/dL (< or = 0.50); Calcium 9.6 mg/dL (8.4-10.2); Carbon Dioxide 27 mmol/L (22-29); Chloride 105 mmol/L (96-108); Cholesterol 202 mg/dL (<200); Estimated Glomerular Filt Rate > 60; Glucose Random 75 mg/dL (60-115); HDL Cholesterol 46 mg/dL (>40); Iron 53 mcg/dL (30-160); LDL Cholesterol Calculated 140 mg/dL (<100); Percent Iron Saturation 19 % (15-50); Potassium 3.9 mmol/L (3.3-5.1); Sodium 140 mmol/L (135-145); Total Iron Binding Capacity 279 mcg/dL (228-428); Total Protein 7.7 g/dL (6.5-8.0); Triglycerides 81 mg/dL (<150); Unsaturated Iron Binding 226 ug/dL
[2024-05-23 11:33] LABS: Ferritin 7 ng/mL (10-122); TSH reflex Free T4 0.95 uIU/mL (0.32-4.0); Vitamin D 25-OH Total 53.6 ng/mL (>30)
[2024-05-23 11:43] LABS: Insulin 15 uU/mL (2-29)
[2024-05-23 11:49] LABS: Folate > 20.0 ng/mL (> or = 4.0); Vitamin B12 1312 pg/mL (200-900)
[2024-05-27 02:53] LABS: Zinc 96 mcg/dL (60-130)
[2024-05-27 14:59] LABS: Vitamin B1 14 nmol/L (8-30)
[2024-05-28 01:18] LABS: Vitamin A 46 mcg/dL (38-98)
== END 2024-05-23 09:34 | disposition home or self-care (01) ==
LOC: HO.HHCL 09:33
PROVIDERS: Internal Medicine; Visit Provider Physician Assistant Surgical
DX: E66.3 Overweight (principal); E11.9 Type 2 diabetes mellitus without complications; Z98.84 Bariatric surgery status
CPT/HCPCS: 36415; 80053; 80061; 82306; 82607; 82728; 82746; 83036; 83525; 83540; 84425; 84443; 84590; 84630; 85025; 86140

== ENCOUNTER 2024-05-27 09:04 | Outpatient (AMB) | payer OTHER, SELFPAY ==
--- NOTE | 2024-05-27 14:40 | MHC.OFFVISWM ---
VS Expanded 05/27/24 14:41 Height 5 ft 1 in Weight 142 lb 8 oz BMI 26.9 Intake Visit Reasons: TV Pre Op Panniculectomy 06/04/24 Allergies No Known Allergies Allergy (Verified 05/27/24 14:40) Medication List - Last Reconciled 05/27/24 by Alex Tyler MD bupropion HCl SR 100 mg PO DAILY cephalexin 500 mg PO Q12H clotrimazole 1% 1 appl topical BID docusate sodium (Colace) 100 mg PO DAILY ondansetron 4 mg PO Q12H oxcarbazepine 300 mg PO BID HPI HPI TV Pre Op Panniculectomy 06/04/24: Details: Start time: 2.34pm, End time: 3pm ?I spent 21 minutes speaking with the patient on the phone plus an additional 5 minutes reviewing and updating records for a total of 26 minutes HPI Comments Details: Overall weight loss: 71.2lbs, or 33.3% TBWL Is doing one bottle of Fairlife, 2 meals (3 forks of protein and 2 forks of salad). May use the 16gr Fit Crunch Exercise: Gym x5/wk doing treadmill for 30 minutes and weights PFSH Medical History (Updated 03/25/24 @ 13:11 by CIRA Lentz) BMI 37.0-37.9, adult Migraines COVID-19 Anxiety Depression Insomnia PCOS (polycystic ovarian syndrome) Morbid obesity Surgical History S/P laparoscopic sleeve gastrectomy Hx of tubal ligation Family History Mother Cancer Father No problems noted. Daughter No problems noted. Son ADHD Son No problems noted. Son No problems noted. 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 Plan for panniculectomy. Risks of infection, bleeding, asymmetry, wound dehiscence and blood clots were discussed with the patient. 2. You will have a drain the abdomen that may stay a few weeks before it may be removed 3. You will need to be doing sponge baths the first 1-2 weeks. No showers. You need to have help at home to get you up and limit your activities as much as possible for at least the 4-6 weeks after surgery 4. We will arrange for a visiting nurse to come at home to help you with dressing changes and send me pictures of the procedures. We will send at your home supplies for the dressing changes. 5. Change nutritional plan to 2 Fairlife shakes (mix 2oz of Fairlife with 6oz almond milk for each) at 6am-8am and 9am-11am, 2 Fit Crunch protein bars at 12pm-2pm and 3pm-5pm, dinner at 6pm (3 forks of meat and 2 forks of salad). This will improve weight loss and healing after surgery. 6. Continue all vitamins 7. Do blood work not fasting any day between Monday05/28/24 and Monday05/31/24 and apple picking supervisor the antibiotic prescription from your pharmacy 8. Risks and complications were discussed the possibility of bleeding that may require transfusion, loss of the umbilicus, wound dehiscence or infection, dog ears , flap asymmetry. We also discussed the importance of strict avoidance of weight lifting. 9. Avoid aspirin, motrin, ibuprofen, Aleve, Advil, Naproxyn. Only Tylenol is OK Orders: Orders Type and Screen Today Alex Tyler MD Z01.818 - Encounter for other preprocedural examination Prothrombin Time INR Today Alex Tyler MD Z01.818 - Encounter for other preprocedural examination Partial Thromboplastin Time Today Alex Tyler MD Z01.818 - Encounter for other preprocedural examination Referrals [facility] Referral CIRA Hooper L98.7 - Excessive and redundant skin and subcutaneous tissue Medications: New cephalexin 500 mg PO Q12H 90 caps 0RF Alex Tyler MD M79.3 - Panniculitis, unspecified docusate sodium (Colace) 100 mg PO DAILY 90 caps 0RF Alxe Tyler MD K59.00 - Constipation, unspecified ondansetron 4 mg PO Q12H 20 tabs 0RF nausea and vomiting Alex Tyler MD R11.0 - Nausea
[2024-05-27 14:41] VITALS: BMI 26.9
== END 2024-05-27 15:01 | disposition home or self-care (01) ==
LOC: HO.HBS 09:04
PROVIDERS: PCP Internal Medicine; Visit Provider Surgery
DX: L98.7 Excessive and redundant skin and subcutaneous tissue (principal)
CPT/HCPCS: 99499

== ENCOUNTER → 2024-05-27 09:04 | Outpatient (BNVA) | payer OTHER, SELFPAY | PROVIDERS: PCP Internal Medicine; Visit Provider Surgery ==

== ENCOUNTER 2024-06-06 07:58 | Day surgery (SDC) | payer OTHER, SELFPAY ==
[2024-05-28 13:57] LABS: INTERNATIONAL NORM RATIO 1.2 (0.9-1.1)
[2024-05-28 14:00] LABS: Partial Thromboplastin Time 31.9 SEC (26.0-36.8)
[2024-05-30 12:20] VITALS: BMI 26.6
--- NOTE | 2024-06-04 14:27 | P.CONAN_ITS ---
Documented by User: Yaima Cota NP 06/04/24 14:28 HPI - Anesthesia Eval Consult details Narrative: 34yo F for Panniculectomy PMFSH Active Problems Active Problems: All Active Problems Excess skin (Acute) Overweight (Acute) Constipation (Acute) Normal breast exam (Acute) Steatosis, liver (Acute) GERD (gastroesophageal reflux disease) (Acute) BMI 39.0-39.9,adult (Acute) Obesity (Acute) H. pylori infection (Acute) Adhesive capsulitis of left shoulder (Acute) Painful arc syndrome of left shoulder (Acute) S/P laparoscopic sleeve gastrectomy (Acute) Anxiety (Acute) Depression (Acute) Insomnia (Acute) PCOS (polycystic ovarian syndrome) (Acute) Morbid obesity (Acute) Past Medical History Medical History Bipolar disorder Migraines COVID-19 BMI 37.0-37.9, adult Anxiety Depression Insomnia PCOS (polycystic ovarian syndrome) Morbid obesity Family History Family History Mother Cancer Father No problems noted. Daughter No problems noted. Son ADHD Son No problems noted. Son No problems noted. Family history of problems with anesthesia: No Surgical History Surgical History S/P laparoscopic sleeve gastrectomy Hx of tubal ligation History of Problems with Anesthesia: No Social History Social History Household Members: Spouse and Children Housing: House Are you a primary health care marketing manager to a significant other at home: No Do you presently have visiting nurse or other home services: No Alcohol intake: current Alcohol intake frequency: holidays/special occasions only Patient Tobacco Use Status: Never used Tobacco Use of substances other than those prescribed or required for medical reasons: No Have you been hit, kicked, punched, or otherwise hurt by someone within the past year? 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 Allergies Allergy/AdvReac Type Severity Reaction Status Date / Time No Known Allergies Allergy Verified 06/06/24 08:39 Home Medications ?Medication ?Instructions ?Recorded ?Confirmed ?Last Taken ?Type bupropion HCl 100 mg tablet,12 hr 100 mg PO DAILY 03/25/24 05/30/24 06/05/24 History sustained-release oxcarbazepine 300 mg tablet 300 mg PO BEDTIME 03/25/24 05/30/24 06/05/24 History Exam Height,Weight and Vital Signs: Height 5 ft 1 in Weight 63.775 kg Pertinent Lab Results Pertinent Lab Results: Laboratory Tests 05/28/24 05/28/24 12:58 13:25 PT 14.0 H INR 1.2 H APTT 31.9 Blood Type O Positive Antibody Screen NEGATIVE Laboratory Tests 05/23/24 09:36 WBC 5.0 Hgb 13.6 Hct 41.7 Plt Count 271 Sodium 140 Potassium 3.9 Chloride 105 Carbon Dioxide 27 BUN 13 Creatinine 0.78 Narrative Narrative: EKG 08/2023 Vent. Rate : 077 BPM Atrial Rate : 077 BPM P-R Int : 130 ms QRS Dur : 078 ms QT Int : 378 ms P-R-T Axes : 044 035 040 degrees QTc Int : 427 ms Normal sinus rhythm Normal ECG When compared with ECG of 21-OCT-2022 10:37, No significant change was found Assessment and Plan Assessment Anesthesia Assessment: Chart Reviewed Final Anesthetic Review Family History of Problems with Anesthesia: No History of Problems with Anesthesia: No Documented by User: Alia Monterroso MD 06/06/24 11:54 PMFSH Active Problems Active Problems: All Active Problems Excess skin (Acute) Overweight (Acute) Constipation (Acute) Normal breast exam (Acute) Steatosis, liver (Acute) GERD (gastroesophageal reflux disease) (Acute) H. pylori infection (Acute) Adhesive capsulitis of left shoulder (Acute) Painful arc syndrome of left shoulder (Acute) S/P laparoscopic sleeve gastrectomy (Acute) 2022 Anxiety (Acute) Depression (Acute) Insomnia (Acute) PCOS (polycystic ovarian syndrome) (Acute) Past Medical History Medical History Bipolar disorder Migraines COVID-19 BMI 37.0-37.9, adult Anxiety Depression Insomnia PCOS (polycystic ovarian syndrome) Morbid obesity Family History Family History Mother Cancer Father No problems noted. Daughter No problems noted. Son ADHD Son No problems noted. Son No problems noted. Family history of problems with anesthesia: No Surgical History Surgical History S/P laparoscopic sleeve gastrectomy Hx of tubal ligation History of Problems with Anesthesia: No Social History Social History Household Members: Spouse and Children Housing: House Are you a primary health care marketing manager to a significant other at home: No Do you presently have visiting nurse or other home services: No Alcohol intake: current Alcohol intake frequency: holidays/special occasions only Patient Tobacco Use Status: Never used Tobacco Use of substances other than those prescribed or required for medical reasons: No Have you been hit, kicked, punched, or otherwise hurt by someone within the past year? 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 Allergy/AdvReac Type Severity Reaction Status Date / Time No Known Allergies Allergy Verified 06/06/24 08:39 Home Medications ?Medication ?Instructions ?Recorded ?Confirmed ?Last Taken ?Type bupropion HCl 100 mg tablet,12 hr 100 mg PO DAILY 03/25/24 05/30/24 06/05/24 History sustained-release oxcarbazepine 300 mg tablet 300 mg PO BEDTIME 03/25/24 05/30/24 06/05/24 History Exam Height,Weight and Vital Signs: Height 5 ft 1 in Weight 63.775 kg Vital Signs Temp Pulse Resp BP Pulse Ox O2 Del Method 06/06/24 08:38 98.2 F 76 18 103/56 L 100 Room Air Pertinent Lab Results Pertinent Lab Results: Laboratory Tests 05/28/24 05/28/24 12:58 13:25 PT 14.0 H INR 1.2 H APTT 31.9 Blood Type O Positive Antibody Screen NEGATIVE Laboratory Tests 05/23/24 09:36 WBC 5.0 Hgb 13.6 Hct 41.7 Plt Count 271 Sodium 140 Potassium 3.9 Chloride 105 Carbon Dioxide 27 BUN 13 Creatinine 0.78 Airway Mallampati Class: I TM Dist: >3cm Neck ROM: Full Loose/Missing/Broken Teeth: No (1 cap intact) Heart: RRR Lungs: CTAB Assessment and Plan Assessment Anesthesia Assessment: Anesthesia Plan Discussed and Chart Reviewed Final Anesthetic Review Family History of Problems with Anesthesia: No History of Problems with Anesthesia: No NPO: Yes ASA Class: II Final Preanesthetic Review: No Changes in Pt Med Stat, Meds/Allgs Chart Reviewed, Consent Obtained/Reviewed and Anes Risks/Benef Reviewed Patient Risk: Intermediate Procedure Risk: Intermediate Assessment/Block/Sedation in SS: Assess/Block/Sedation- Anesthetic Plan Anesthetic Plan: GA Disposition: Standard PACU
[2024-06-06] VITALS (13 sets, daily range): BP systolic 101–138; BP diastolic 56–71; PULSE 76–113; RESP 16–20; TEMP 36.1–36.8; O2SAT 97–100; BMI 26.3
[2024-06-06] MEDS: Lactated Ringers 1,000 ML 100 ML IVCONT ×3 (08:19→16:49)
[2024-06-06] MEDS: Aprepitant 32 MG/4.4 ML VIAL IVPUSH (08:41)
--- NOTE | 2024-06-06 10:15 | MHC.SHP ---
Pre-Procedural Eval Section A - 24 Hr Update-Section A only Date of Service: 06/06/24 The patient is an INPATIENT: No The patient has been examined within 24 hours of the surgical procedure. The History & Physical has been completed within 30 days and I have reviewed it.: Yes Section B - Complete if H&P > 30 days Chief Complaint: Excessive and redundant skin and subcutaneous tiss Relevant Family History (Specify if Yes): No Relevant Social History: None Present Medications: None Medical History: No relevant PMH History of Previous Operations: Relevant previous surgery/procedure and date(s) (Lap sleeve gastrectomy) Allergies: Allergies Allergy/AdvReac Type Severity Reaction Status Date / Time No Known Allergies Allergy Verified 06/06/24 08:39 Review of Systems Sugical H&P ROS: Negative: Constitution, Cardiovascular, Respiratory, Neurological, Psychiatric, Hem-Onc, Allergic/Immunologic, Gastrointestinal, Genitourinary, Musculoskeletal, Integumentary, Endocrine and Eyes/Ears/Nose/Throat Exam Surgical H&P Exam: Normal: HEENT, Normal: Heart, Normal: Lungs, Normal: Extremities, Normal: Skin and Normal: Neurological and Not Evaluated: Abdomen (excess skin) Plan Diagnosis/Plan: Unchanged I have reviewed the history and physical and performed a pertinent physical examination on my patient. No changes have occurred unless specified. Time Spent With Patient Time: Total time managing care of this patient today ____ minutes.
--- NOTE | 2024-06-06 10:17 | P.BOP_ITS ---
Brief Operative Note Date of Service: 06/06/24 Pre-op diagnosis: Excess skin Post-op diagnosis: same Procedure: PROCEDURE: Panniculectomy with umbilical transposition and bilateral subcutaneous fat flaps INDICATION: This a 34 year old female who underwent laparoscopic sleeve gastrectomy on 03/16/2023. She had an excellent result achieving a BMI of 27 kg/m2 with a total weight loss of 71.2lbs, or 33.3% of her TBWL. As a result, she has developed panniculitis which has not resolved despite continuous use of clotrimazole ointment as well as skin irritation. On exam she has extreme skin laxity due to massive weight loss, with the abdominal pannus completely hanging 4cm below the pubis. Panniculectomy was recommended. We discussed the two options for the panniculectomy of using a combined vertical and horizontal incisions or just a horizontal (bikini) incision. It was my recommendation to do only horizontal incision based on her body habitus and skin laxity. The patient agreed with this. Risks and complications were discussed with the patient including bleeding, infection, umbilical loss, flap necrosis, asymmetry, dehiscence, seroma, VTE. The patient understood the risks and was in agreement to proceed with surgery. PROCEDURE: The incisions were appropriately marked at the preop area with the patient standing and laying down. After induction of general anesthesia a Antonio catheter and pneumatic compression devices were placed. The patient was prepped and draped in the usual sterile manner and the incisions were marked again and confirmed. The skin was infiltrated with lidocaine and epinephrine. The #10 blade scalpel was used for the large incisions and the #15 blade scalpel for the umbilicus. Cautery was used to divide the subcutaneous tissues until the fascia was identified. Then I used the cautery to separate the pannus from the fascia. The inferior incision was made initially and I mobilized the flap for a several centimeters cephalad to the umbilicus. The umbilicus was incised circumferentially and detached from the surrounding tissues all the way to the fascia while its stalk was preserved. With the patient in reflex position I confirmed that the skin flaps were appropriate and would allow for the tissues to come together with reasonable tension. At that point a horizontal incision was made 4 cm above the umbilicus. #10 blade was used for the skin, cautery for the dermis and for the remaining tissues. A subcutaneous fat flap was raised from the upper skin flap in order to fill the space under the skin and support the closure of the two flaps. In addition the inferior flap was mobilized caudally for a few centimeters to create a space for the subcutaneous fat flap as well as relieve tension from the closure. A circumferential incision was made at the area where the umbilicus would be re-implanted. The umbilicus was appropriately oriented and was delivered through the defect and was secured in place with a Sofía. No bleeding was noted anywhere. One BEENA drain was placed from the left corner of the horizontal incision across the wound and was secured in place with a silk suture. The subcutaneous fat flap was secured under the inferior flap with several interrupted 3.0 Monocryl sutures. The two flaps were brought together and were attached at the midline of the horizontal incision with a #3.0 Monocryl suture. At that point the umbilicus was properly oriented and was re-approximated to the skin with 8 interrupted 3.0 Monocryl sutures. In a similar fashion the skin flaps were re-approximated with multiple 3.0 Monocryl sutures. The skin was closed in all incisions and umbilicus with 4.0 Monocryl sutures. Steri-strips, xeroform gauzes and gauzes were used to cover the incisions. An abdominal binder was also placed. The was awaken and was transferred to the recover room in a stable condition. I was present and performed the entire procedure. Ms. Rose was the administrative support assistant. Uriel Tyler MD, PhD, FACS Surgeon: Alex Tyler MD Surgeon: Alex Tyler MD Anesthesia: GETA, local and other (TAP block) Was an Foreign Food Cook Specialty used for this Procedure?: No Foreign Food Cook Specialty: Margarita Ibarra Estimated blood loss (mL): 10 IV fluids (mL): 2,200 Urine output (mL): 190 (No Antonio to record output) Pathology: other (Abdominal pannus) Condition: stable Disposition: PACU
--- NOTE | 2024-06-06 10:21 | P.PNGS_ITS ---
Subjective Subjective Date of Service: 06/07/24 Interval history: Feels well. Mild incisional pain. She is tolerating phase 1 bariatric diet Physical Exam 2 Vital Signs: Vital Signs: Last Vital Signs Temp 98.2 F 06/06/24 08:38 Pulse 76 06/06/24 08:38 Resp 18 06/06/24 08:38 BP 103/56 L 06/06/24 08:38 Pulse Ox 100 06/06/24 08:38 O2 Del Method Room Air 06/06/24 08:38 BMI result Body Mass Index 26.3 GI: Inspection: Yes normal to inspection, Yes incision (clean, dry and intact) and Yes other (BEENA drain with serosanguinous fluid) Palpation (GI): Soft to palpation Extrem: Right lower extremity: normal to inspection (no calf tenderness) L eft lower extremity: normal to inspection (no calf tenderness) Objective Data Active Medications Lactated Ringer's (Lr) 1,000 mls @ 100 mls/hr IVCONT .Q10H [facility] Last Admin: 06/06/24 08:19 Dose: 100 mls/hr Documented By: CRISSY Lactated Ringer's (Lr) 1,000 mls @ 100 mls/hr IVCONT .Q10H [facility] Last Admin: 06/06/24 08:19 Dose: 100 mls/hr Documented By: CRISSY Labs 06/07/24 05:57 06/07/24 05:57 Procedures Date of Service Date of Service: 06/07/24 Progress Note: A&P Assessment and plan (1) Excess skin: Status: Acute Assessment and Plan: s/p panniculectomy Doing well Will check am labs and if OK the patient will be discharged home (2) S/P panniculectomy: Status: Acute Time Spent With Patient Time: Total time managing care of this patient today ____ minutes. Quality Stroke Does the patient have a stroke diagnosis?: No VTE Prior VTE?: No VTE Risk Level:: Surgical - moderate VTE Device Contraindication: N/A - Device Ordered VTE Drug Contraindication: Treatment Not Indicated
--- NOTE | 2024-06-06 10:33 | P.F2F_ITS ---
Service Date Service Date: 06/06/24 Encounter Date of encounter: 06/06/24 Reasons for Services Signs and symptoms assessed: s/p panniculectomy with drain placement- requesting penitentiary visits Reason for penitentiary: wound care Homebound: Leaving the home is medically contraindicated at this time without the asist of a device and/or another person due th the listed conditions above and below. Reason homebound: unable to drive Certification: Based on the above findings, I certify that this patient is confined to the home and needs intermittent penitentiary care, physical therapy and/or speech therapy, or continues to need occupational therapy. The patient is under my care, and I have initiated the establishment of the plan of care. The patient will be followed by a physician who will periodically review the plan of care. Time Spent With Patient Time: Total time managing care of this patient today __30__ minutes.
[2024-06-06 15:25] LABS: Hematocrit 36.6 % (37.0-47.0); Hemoglobin 12.1 g/dl (12.0-16.0)
[2024-06-06 15:38] LABS: Anion Gap 12 (12-20); Blood Urea Nitrogen 12 mg/dL (9-16); Calcium 8.8 mg/dL (8.4-10.2); Carbon Dioxide 23 mmol/L (22-29); Chloride 107 mmol/L (96-108); Creatinine Clr Calc Pharmacy 99.7; Estimated Glomerular Filt Rate > 60; Glucose Random 105 mg/dL (60-115); Sodium 138 mmol/L (135-145)
[2024-06-06] MEDS: 0.9 % Sodium Chloride Flush 3 ML SYRINGE IVFLUSH ×2 (16:49→20:38)
[2024-06-06] MEDS: Acetaminophen 1,000 MG/100 ML PIGGYBACK 16.7 MG IV ×2 (16:59→22:45)
--- NOTE | 2024-06-06 18:22 | PHA.MEDREC ---
Addendum entered by Keven Cabrera [facility] 06/06/24 20:23: MED REC CHECKED. PATIENT TAKES XL 300MG AND 600MG OXCARBAZEPINE WITH 1 EXTRA PRN.CORRECTED LIST Original Note: Pharmacy Consult ? Medication Reconciliation Pharmacy has completed the medication reconciliation. Spoke with patient and she confirmed her medications. She confirmed she is going to be starting the Cephalexin 500mg and Ondansetron 4mg when she gets home. She confirmed she stopped taking the Clotrimazole cream yesterday. She confirmed she is taking a Multivitamin, Fiber and Biotin tablet once daily. She confirmed she took her medications yesterday.
[2024-06-06] MEDS: HYDROmorphone HCl 0.5 MG/0.5 ML SYRINGE 0.25 MG IVPUSH (20:35)
[2024-06-06] MEDS: Docusate Sodium 100 MG CAPSULE PO (20:36)
[2024-06-06] MEDS: OXcarbazepine 300 MG TABLET 600 MG PO (20:36)
[2024-06-06] MEDS: buPROPion HCl XL 300 MG TAB.ER.24H PO (20:36)
[2024-06-06] MEDS: cephALEXin 500 MG CAPSULE PO (21:22)
[2024-06-07] MEDS: Lactated Ringers 1,000 ML 100 ML IVCONT (02:10)
[2024-06-07 03:41] VITALS: PULSE 89; RESP 18; TEMP 36.7; O2SAT 99
[2024-06-07 03:53] VITALS: BP 105/59
[2024-06-07] MEDS: Acetaminophen 1,000 MG/100 ML PIGGYBACK 16.7 MG IV (05:05)
[2024-06-07 06:15] LABS: MANUAL DIFF FLAG NO
[2024-06-07 06:18] LABS: Basophils Percent Auto 0.1 % (0-2); Eosinophils Percent Auto 0.1 % (0-4); Hematocrit 32.6 % (37.0-47.0); Hemoglobin 10.8 g/dl (12.0-16.0); Imm Gran Abs Auto 0.02 X10*3/uL (0.00-0.03); Imm Gran Pct Auto 0.3 % (0.0-0.4); Lymphocytes Absolute Auto 1.6 X10*3/uL (1.2-4.9); Lymphocytes Percent Auto 23.2 % (20-40); Mean Corpuscular HGB Conc 33.1 g/dl (31.0-35.0); Mean Corpuscular Hemoglobin 26.6 pg (27.0-33.0); Mean Corpuscular Volume 80.3 fL (80.0-98.0); Mean Platelet Volume 10.9 fL (9.4-12.3); Monocytes Absolute Auto 0.6 X10*3/uL (0.1-1.2); Monocytes Percent Auto 7.8 % (2-11); Neutrophils Absolute Auto 4.8 x10*3/uL (2.0-8.3); Neutrophils Percent Auto 68.5 % (45-73); Platelet Count 173 X10*3/uL (160-400); Red Blood Count 4.06 X10*6/uL (4.20-5.50); Red Cell Distribution Width 12.9 % (11.0-16.0)
[2024-06-07 06:30] LABS: Anion Gap 11 (12-20); Blood Urea Nitrogen 10 mg/dL (9-16); Calcium 8.7 mg/dL (8.4-10.2); Carbon Dioxide 25 mmol/L (22-29); Chloride 105 mmol/L (96-108); Creatinine Clr Calc Pharmacy 107.7; Estimated Glomerular Filt Rate > 60; Glucose Random 76 mg/dL (60-115); Potassium 3.5 mmol/L (3.3-5.1); Sodium 137 mmol/L (135-145)
[2024-06-07] MEDS: Docusate Sodium 100 MG CAPSULE PO (07:21)
[2024-06-07] MEDS: cephALEXin 500 MG CAPSULE PO (07:22)
[2024-06-07] MEDS: buPROPion HCl XL 300 MG TAB.ER.24H PO (07:22)
[2024-06-07 07:36] VITALS: BP 85/50; PULSE 81; RESP 16; TEMP 36.7; O2SAT 100
[2024-06-07 09:05] VITALS: BP 97/58; PULSE 99; RESP 16; TEMP 36.3; O2SAT 100
--- NOTE | 2024-06-07 09:06 | MHC.CM.PN ---
Patient dc'd home self care prior to CM assessment.
== END 2024-06-07 09:11 | disposition home or self-care (01) ==
LOC: HO.SSS 10:19 → HO.S3 16:02
PROVIDERS: Physician Assistant Surgical; PCP Internal Medicine; Visit Provider Surgery
PROC: 0JB80ZZ Excision of Abdomen Subcutaneous Tissue and Fascia, Open Approach (ICD-10-PCS; CPT 15830; principal; 2024-06-06 10:20)
DX: L98.7 Excessive and redundant skin and subcutaneous tissue (principal); M79.3 Panniculitis, unspecified; E65 Localized adiposity; L24.9 Irritant contact dermatitis, unspecified cause; Z98.84 Bariatric surgery status; E66.01 Morbid (severe) obesity due to excess calories; Z68.37 Body mass index [BMI] 37.0-37.9, adult; E28.2 Polycystic ovarian syndrome; G43.909 Migraine, unspecified, not intractable, without status migrainosus; G47.00 Insomnia, unspecified; F32.A Depression, unspecified; F41.9 Anxiety disorder, unspecified; Z79.899 Other long term (current) drug therapy; Z98.890 Other specified postprocedural states; Z98.51 Tubal ligation status
CPT/HCPCS: 15830; 15847; 36415; 80048; 85014; 85018; 85025; 85610; 85730; 86850; 86900; 86901; 88304; C9088; C9145; J0131; J0690; J1100; J1171; J2003; J2004; J2250; J2371; J2405; J2704; J3010; J3370; J7120

== ENCOUNTER → 2024-06-06 07:58 | Outpatient (BNV) | payer OTHER, SELFPAY | PROVIDERS: PCP Internal Medicine; Visit Provider Physician Assistant Surgical | DX: L98.7 Excessive and redundant skin and subcutaneous tissue (principal); Z98.890 Other specified postprocedural states | CPT/HCPCS: 15830; 99024; G0180 ==

== ENCOUNTER 2024-06-12 15:27 | Outpatient (AMB) | payer OTHER, SELFPAY ==
--- NOTE | 2024-06-12 15:36 | MHC.OFFVISWM ---
Intake Visit Reasons: (OV) s/p Panniculectomy 06/06/24 Allergies No Known Allergies Allergy (Verified 06/06/24 08:39) HPI Comments Details: 34-year-old female returns to the office today in follow-up. She is status post panniculectomy on 06/06/2024. Overall she is doing well. Reports approximately 20-25 mL of serosanguineous fluid from the collection bulb on a daily basis. She is tolerating her meal plan and continues her antibiotics. Offers no significant complaints. [facility] Medical History Bipolar disorder Migraines COVID-19 BMI 37.0-37.9, adult Anxiety Depression Insomnia PCOS (polycystic ovarian syndrome) Morbid obesity Surgical History S/P laparoscopic sleeve gastrectomy Hx of tubal ligation Family History Mother Cancer Father No problems noted. Daughter No problems noted. Son ADHD Son No problems noted. Son No problems noted. 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 Umbilicus is viable. Approximately 15 mL of serosanguineous fluid within the collection bulb. No evidence of dehiscence or infection Assessment & Plan Assessment & Plan (1) S/P panniculectomy: Code(s): Z98.890 - Other specified postprocedural states Category: Surgical Plan: 34-year-old female, status post panniculectomy on 06/06/2024. Doing very well. Offers no complaints. Continue abdominal binder, antibiotics, meal plan. Return to clinic as scheduled.
== END 2024-06-12 15:52 | disposition home or self-care (01) ==
PROVIDERS: PCP Internal Medicine; Visit Provider Physician Assistant Surgical
DX: Z98.890 Other specified postprocedural states (principal)
CPT/HCPCS: 99024

== ENCOUNTER → 2024-06-12 15:27 | Outpatient (BNVA) | payer OTHER, SELFPAY | PROVIDERS: PCP Internal Medicine; Visit Provider Physician Assistant Surgical | DX: Z48.817 Encounter for surgical aftercare following surgery on the skin and subcutaneous tissue (principal); Z98.890 Other specified postprocedural states | CPT/HCPCS: 99212 ==

== ENCOUNTER 2024-06-21 10:39 | Outpatient (AMB) | payer OTHER, SELFPAY ==
--- OUTSIDE RECORDS SUMMARY | 2024-06-21 11:22 | XMS_ITS | Encounter Summary ---
Author Organization [email or web address] Address [address] [place] [address] Care Team Providers Care Rn X Ray Name Role Phone Halina Mayberry MD Primary Care Provide r Encounter Details Date Type Department Care Team (Late Contact Info) Description 06/13/2022 Telephone [facility] MED[facility] [address] [place] [address] Halina Mayberry MD [address] [place] [address] Social History Tobacco Use Types Packs/Day Years Used Date Smoking Tobacco: Never Smokeless Tobacco: Never Comments Unknown Sex and Gender Information Value Date Recorded Sex Assigned at Female 03/21/2022 10:37 AM EDT Legal Sex Female 10:37 AM EDT Gender Identity Female 03/21/2022 10:37 AM EDT Sexual Orientation Straight 03/21/2022 10 :37 AM EDT COVID-19 Exposure Response Date Recorded In the last 10 days, have yo u been in contact with someone who was confirmed or suspected to have Coronavirus/COVID-19? Yes 05/17/2022 11:37 AM EST documented as of this encounter Plan of Treatment Upcoming Encounters Date Type Department Care Team (Late st Contact Info) Description 10/29/2024 10:00 AM EDT Office Visit [facility] ADULT DENTAL [address] [place] [address] Ana Pedroza [address] [place] [address] documented as of this encounter Visit Diagnoses Not on filedocumented in this encounter Care Teams Rn X Ray Relationship Specialty Start Date End Date Halina Mayberry MD [address] [place] [address] PCP - General Family Medicine 06/05/20 documented as of this encounter
--- OUTSIDE RECORDS SUMMARY | 2024-06-21 11:22 | XMS_ITS | Encounter Summary ---
Author Organization [employer] Address [address] [place] [address] Care Team Providers Care General Production Manager Name Role Phone Halina Mayberry MD Primary Care Provide r Encounter Details Date Type Department Care Team (Latest Contact Info) Description 09/22/2021 Abstract [facility] CONVERSIONS Dental, Provider, DDS Social History Tobacco Use Types Packs/Day Years Used Date Smoking Tobacco: Never Assessed Comments Unknown Sex and Gender Information Value Date Recorded Sex Assigned at Female 03/21/2022 10:37 AM EDT Legal Sex Female 10:37 AM EDT Gender Identity Female 03/21/2022 10:37 AM EDT Sexual Orientation Straight 03/21/2022 10 :37 AM EDT documented as of this encounter Plan of Treatment Upcoming Encounters Date Type Department Care Team (Late st Contact Info) Description 10/29/2024 10:00 AM EDT Office Visit [facility] ADULT DENTAL [address] [place] [address] Yovany, Ana [address] [place] [address] documented as of this encounter Visit Diagnoses Not on filedocumented in this encounter Care Teams General Production Manager Relationship Specialty Start Date End Date Halina Mayberry MD [address] [place] [address] PCP - General Family Medicine 06/05/20 documented as of this encounter
--- OUTSIDE RECORDS SUMMARY | 2024-06-21 11:22 | XMS_ITS | Clinical Summary ---
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 ? The analytical performance characteristics of this assay have been determined by [employer]. The modifications have not been cleared or approved by the FDA. This assay has been validated pursuant to the CLIA regulations and is used for clinical purposes. ?? For additional information, please refer to http://Emulis.[employer]/faq/IKU766z1 (This link if provided for information/ educational purposes only.) Interpretation/Re sult: Negative for intraepithelial lesion or malignancy. [facility] LMP: NONE GIVEN [facility] Neisseria gonorrhoeae RNA, TMA, Urogenital NOT DETECTED NOT DETECTED [facility] Prev. BX: NONE GIVEN [facility] Prev. PAP: NONE GIVEN [facility] SOURCE: None given [facility] Statement Of Adequacy: SEE COMMENT [facility] Comment: Satisfactory for evaluation. Endocervical/transformation zone component absent. Age and/or menstrual status not provided Trichomonas vaginalis, QL, TMA, PAP Vial NOT DETECTED NOT DETECTED [facility] Comment: The analytical performance characteristics of this assay have been determined by [employer]. The modifications have not been cleared or approved by the FDA. This assay has been validated pursuant to the CLIA regulations and is used for clinical purposes. ?? For additional information, please refer to http://Emulis.[employer]/ faq/Trichomonastma (This link is being provided for information/ educational purposes only.) ?? 04/01/2021 10:2 0 AM EST us Halina Uriostegui MD LAB PATHOLOGY ORDERAB LES Final Result [facility] [address] * Pap Smear (04/01/2021 12:00 AM EST) Swab us Halina Uriostegui MD LAB CYTOLOGY ORDERABL ES Final Result [facility] [address] [place] [address] [place] [address] * HIV 1/2 ANTIGEN/ANTIBODY,FOURTH GENERATION W/RFL (05/29/2020 9:10 AM EST) Pathologist [facility] HIV-1/2 ANTIGEN AND ANTIBODIES, 4TH GENERATION W/ REFLEX NON-REACT UMA NON-REACT UMA [facility] Comment: HIV-1 antigen and HIV-1/HIV-2 antibodies were not detected. There is no laboratory evidence of HIV infection. ?? PLEASE NOTE: This information has been disclosed to you from records whose confidentiality may be protected by state law. ??If your state requires such protection, then the state law prohibits you from making any further disclosure of the information without the specific written consent of the person to whom it pertains, or as otherwise permitted by law. A general authorization for the release of medical or other information is NOT sufficient for this purpose. ? For additional information please refer to http://education.[employer]/faq/JOP936 (This link is being provided for informational/ educational purposes only.) ? The performance of this assay has not been clinically validated in patients less than 2 years old. ?? 05/29/2020 9:10 AM EST Halina Uriostegui MD LAB BLOOD ORDERABLES Final Result [facility] [address] from Last 3 Months or Most Recently Relevant to Health Maintenance Insurance [facility] HSN FULL (MEDICAID) Care Teams Oracle Solutions Architect Relationship Specialty Start Date End Date Halina Mayberry MD [address] [place] [address] PCP - General Family Medicine 06/05/20
--- OUTSIDE RECORDS SUMMARY | 2024-06-21 11:22 | XMS_ITS | Encounter Summary ---
Author Organization [employer] Address [address] [facility] 7t [place] [address] Care Team Providers Care Flight Superintendent Name Role Phone Halina Mayberry MD Primary Care Provide r Reason for Visit * Reason Comments Med Change Request Encounter Details Date Type Department Care Team ([facility] st Contact Info) Description 09/15/2023 Refill [facility] MEDICINE [address] [place] [address] Yue House MD [address] [place] [address] Social History Tobacco Use Types Packs/Day Years Used Date Smoking Tobacco: Never Passive Smoke Exposure: Never Smokeless Tobacco: Never Alcohol Use Standard Drinks/Week Comments Never 0 (1 standard drink = 0.6 oz pur e alcohol) Depression Answer Date Recorded Patient Health Questionnaire-9 Score 0 07/07/2023 Patient Health Questionnaire-9 Score 0 07/07/2023 Last PHQ-9: Questionnaire Data Not on file 0 07/07/2023 Housing Stability Answer Date Recorded What is your housing situation today? I have dorys galindo 07/07/[address] you li [...] Recorded Patient Health Questionnaire-2 Score 0 07/07/2023 Comments Unknown Sex and Gender Information Value [...] Description 10/29/2024 10:00 AM EDT Office Visit [facility] ADULT DENTAL [address] [place] [address] Yovany, Ana [address] [place] [address] documented as of this encounter Visit Diagnoses Not on filedocumented in this encounter Additional Health Concerns Assessment Noted Time PHQ-9 Depression Total Score: 0 07/07/19 24 9:51 AM EST documented as of this encounter Care Teams Flight Superintendent Relationship Specialty Start Date End Date Halina Mayberry MD [address] [place] [address] PCP - General Family Medicine 06/05/20 documented as of this encounter
--- NOTE | 2024-06-21 12:26 | MHC.OFFVISWM ---
Intake Visit Reasons: (OV) s/p Panniculectomy 06/06/24 *SEE COMMENTS* Allergies No Known Allergies Allergy (Verified 06/06/24 08:39) HPI Comments Details: Feels well. No fever or abdominal pain Very happy with results Is doing 2 protein shakes, 2 protein bars and one meal (5 forks of meat and 5 forks of salad or vegetables) PFSH Medical History Bipolar disorder Migraines COVID-19 BMI 37.0-37.9, adult Anxiety Depression Insomnia PCOS (polycystic ovarian syndrome) Morbid obesity Surgical History S/P laparoscopic sleeve gastrectomy Hx of tubal ligation Family History Mother Cancer Father No problems noted. Daughter No problems noted. Son ADHD Son No problems noted. Son No problems noted. 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 Continue antibiotic and BEENA drainage 2. May shower 3. Dressings were replaced 4. Continue present nutritional plan 5. Avoid any activities
== END 2024-06-21 12:30 | disposition home or self-care (01) ==
PROVIDERS: PCP Internal Medicine; Visit Provider Surgery
DX: Z98.890 Other specified postprocedural states (principal)
CPT/HCPCS: 99024

== ENCOUNTER → 2024-06-21 10:39 | Outpatient (BNVA) | payer OTHER, SELFPAY | PROVIDERS: PCP Internal Medicine; Visit Provider Surgery | DX: Z98.890 Other specified postprocedural states (principal) | CPT/HCPCS: 99212 ==

== ENCOUNTER 2024-06-27 11:57 | Outpatient (AMB) | payer OTHER, SELFPAY ==
--- NOTE | 2024-06-27 11:59 | MHC.OFFVISWM ---
VS Expanded 06/27/24 12:14 BP 125/66 Blood Pressure Location Rt brachial Blood Pressure Position Sitting Pulse 82 Pulse Source Pulse Oximeter Temp 98.0 F Temperature Source Temporal Artery Scan Pulse Oximetry 100 Oxygen Delivery Method Room Air Intake Visit Reasons: (OV) s/p Panniculectomy 06/06/24 Allergies No Known Allergies Allergy (Verified 06/27/24 12:15) HPI Comments Details: Pt is 3 weeks s/p panniculectomy 06/06/2024. No fevers at home. No pain. Continues on abx. Wearing abdominal binder. Is doing 2 protein shakes, 2 protein bars and one meal (5 forks of meat and 5 forks of salad or vegetables) for meal plan. [facility] Medical History Bipolar disorder Migraines COVID-19 BMI 37.0-37.9, adult Anxiety Depression Insomnia PCOS (polycystic ovarian syndrome) Morbid obesity Surgical History S/P laparoscopic sleeve gastrectomy Hx of tubal ligation Family History Mother Cancer Father No problems noted. Daughter No problems noted. Son ADHD Son No problems noted. Son No problems noted. 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 Pt may drive. Continue high protein diet. ABX keflex 500 BID x 1 more week. Abdominal binder at all times except for care x 1 month?MINIMUM. If there are concerns longer.? No walking outside or exercise for 6 weeks minimum. Assistance getting up for 4 weeks minimum.?No lifting greater than?10 pounds x 2 months and no abdominal exercises x 3 months. RTC 1 week. I spent a total of 30 minutes reviewing/updating records, examining the patient and counseling the patient on weight management as detailed above.
--- OUTSIDE RECORDS SUMMARY | 2024-06-27 11:59 | XMS_ITS | Encounter Summary ---
Author Organization [employer] Address [address] [facility] 7 [place] [address] Care Team Providers Care Manager File Name Role Phone Halina Mayberry MD Primary Care Provide r Encounter Details Date Type Department Care Team (Latest Contact Info) Description 09/22/2021 Abstract [facility] CONVERSIONS Dental, Provider, DDS Social History [...] Description 10/29/2024 10:00 AM EDT Office Visit [facility] ADULT DENTAL [address] [place] [address] Yovany, Ana [address] [place] [address] documented as of this encounter Visit Diagnoses Not on filedocumented in this encounter Care Teams Manager File Relationship Specialty Start Date End Date Halina Mayberry MD [address] [place] [address] PCP - General Family Medicine 06/05/20 documented as of this encounter
--- OUTSIDE RECORDS SUMMARY | 2024-06-27 11:59 | XMS_ITS | Encounter Summary ---
Author Organization [employer] Address [address] [facility] [address] [place] [address] Care Team Providers Care Sawmill Manager Name Role Phone Halina Mayberry MD Primary Care Provide r Reason for Visit * Reason Comments Med Change Request Encounter Details Date Type Department Care Team ([facility] st Contact Info) Description 09/15/2023 Refill [facility] MEDICINE [address] [place] [address] Yue House MD [address] [place] [address] Social History Tobacco Use Types Packs/Day Years [...] 10:00 AM EDT Office Visit [facility] ADULT DENTAL [address] [place] [address] Yovany, Ana [address] [place] [address] documented as of this encounter Visit Diagnoses Not on filedocumented in this encounter Additional Health Concerns Assessment Noted Time PHQ-9 Depression Total Score: 0 07/07/19 24 9:51 AM EST documented as of this encounter Care Teams Sawmill Manager Relationship Specialty Start Date End Date Halina Mayberry MD [address] [place] [address] PCP - General Family Medicine 06/05/20 documented as of this encounter
--- OUTSIDE RECORDS SUMMARY | 2024-06-27 12:01 | XMS_ITS | Encounter Summary ---
Author Organization [employer] Address [address] [facility] 7t [place] [address] Care Team Providers Care Script Supervisor Name Role Phone Halina Mayberry MD Primary Care Provide r Encounter Details Date Type Department Care Team (Late Contact Info) Description 06/13/2022 Telephone [facility] MEDICINE [address] [place] [address] Halina Mayberry MD [address] [place] [address] Social History Tobacco Use Types Packs/Day Years [...] Encounters Date Type Department Care Team (Late Contact Info) Description 10/29/2024 10:00 AM EDT Office Visit [facility] ADULT DENTAL [address] [place] [address] Ana Pedroza [address] [place] [address] documented as of this encounter Visit Diagnoses Not on filedocumented in this encounter Care Teams Script Supervisor Relationship Specialty Start Date End Date Halina Mayberry MD [address] [place] [address] PCP - General Family Medicine 06/05/20 documented as of this encounter
[2024-06-27 12:14] VITALS: BP 125/66; PULSE 82; TEMP 36.7; O2SAT 100
== END 2024-06-27 13:13 | disposition home or self-care (01) ==
PROVIDERS: PCP Internal Medicine; Visit Provider Physician Assistant Surgical
DX: M79.3 Panniculitis, unspecified (principal); L98.7 Excessive and redundant skin and subcutaneous tissue; Z98.890 Other specified postprocedural states
CPT/HCPCS: 99024

== ENCOUNTER → 2024-06-27 11:57 | Outpatient (BNVA) | payer OTHER, SELFPAY | PROVIDERS: PCP Internal Medicine; Visit Provider Physician Assistant Surgical | DX: Z48.03 Encounter for change or removal of drains (principal); Z98.890 Other specified postprocedural states | CPT/HCPCS: 99212 ==

== ENCOUNTER 2024-07-04 14:51 | Outpatient (AMB) | payer OTHER, SELFPAY ==
--- OUTSIDE RECORDS SUMMARY | 2024-07-04 14:55 | XMS_ITS | Encounter Summary ---
Author Organization [employer] Address [address] [facility] 7t [place] [address] Care Team Providers Care Seed Expert Name Role Phone Halina Mayberry MD Primary Care Provide r Encounter Details Date Type Department Care Team (Late Contact Info) Description 06/13/2022 Telephone [facility] MEDICINE [address] [place] [address] Halina Mayberry MD [address] [place] [address] Social History Tobacco Use Types Packs/Day Years [...] [facility] ADULT DENTAL [address] [place] [address] Ana Pedroza [address] [place] [address] documented as of this encounter Visit Diagnoses Not on filedocumented in this encounter Care Teams Seed Expert Relationship Specialty Start Date End Date Halina Mayberry MD [address] [place] [address] PCP - General Family Medicine 06/05/20 documented as of this encounter
--- OUTSIDE RECORDS SUMMARY | 2024-07-04 14:55 | XMS_ITS | Clinical Summary ---
Author Organization [employer] Address [address] [facility] 7t [place] [address] Care Team Providers Care Tenoner Operator Name Role Phone Halina Mayberry MD Primary [...] referred to PT after ED visit, to [facility], has appointment on 09/17 Continue flexeril [...] Description 04/29/2024 8:00 AM EST Office Visit [facility] [address] [place] [address] Ana Pedroza Dental calculus (Primary Dx); Gingival bleeding; Incipient enamel caries 04/14/2024 Refill [facility] [address] [place], [place] [phone] Orly Clark MD from Last 3 Months [...] Description 10/29/2024 10:00 AM EDT Office Visit [facility] [address] [place], [place] [phone] Yovany, Ana [address] [place] [address] Health Maintenance Due Date Last Done Comments [...] 11/21/2020, 10/31/2020 Influenza Vaccine (#1) 2024 06/19/2020 Diabetes: Hemoglobin A1C 02/09/2024 024, 07/07/2023, 03/06/2023, Additional history exists Pap Smear 04/01/2024 04/01/2021, 04/01/2021 Depression Screening 07/07/2024 07/07/2023, 07/07/19 24 SDOH [...] :00 AM EST Dental calculus Gingival bleeding CASE PRESENTATION, DETAILED AND EXTENSIVE TREATMENT PLANNING Routine 04/29/2024 [...] PAP SMEAR Routine 04/01/2021 12:00 AM EST INTRAORAL - COMPLETE SERIES OF RADIOGRAPHIC IMAGES Routine 06/05/2020 12:00 AM EST HIV 1/2 ANTIGEN/ANTIBODY, FOURTH GENERATION W/RFL Routine 05/29/2020 9:10 AM EST from Last 3 Months or Most Recently Relevant to Health Maintenance Results * (ABNORMAL) CBC auto differential (06/07/2024 5:57 AM EST) White Blood Count 7.0 4.8 - 10.8 X10*3/uL [facility] Red Blood Count 4.06(L) 4.20 - 5.50 X10*6/uL [facility] Hemoglobin 10.8(L) 12.0 - 16.0 g/dl [facility] Hematocrit 32.6(L) 37.0 - 47.0 % [facility] Mean Corpuscular Volume 80.3 80.0 - 98.0 fL [facility] Mean Corpuscular Hemoglobin 26.6(L) 27.0 - 33.0 pg [facility] Mean Corpuscular HGB Conc 33.1 31.0 - 35.0 g/dl [facility] Red Cell Distribution Width 12.9 11.0 - 16.0 % [facility] Platelet Count 173 160 - 400 X10*3/uL [facility] Mean Platelet Volume 10.9 9.4 - 12.3 fL [facility] Neutrophils Percent Auto 68.5 45 - 73 % [facility] Imm Gran Pct Auto 0.3 0.0 - 0.4 % [facility] Lymphocytes Percent Auto 23.2 20 - 40 % [facility] Monocytes Percent Auto 7.8 2 - 11 % [facility] Eosinophils Percent Auto 0.1 0 - 4 % [facility] Basophils Percent Auto 0.1 0 - 2 % [facility] NRBC Pct Auto 0.0 0.0 - 0.2 /100WBC [facility] Neutrophils Absolute Auto 4.8 2.0 - 8.3 x10*3/uL [facility] Imm Gran Abs Auto 0.02 0.00 - 0.03 X10*3/uL [facility] Lymphocytes Absolute Auto 1.6 1.2 - 4.9 X10*3/uL [facility] Monocytes Absolute Auto 0.6 0.1 - 1.2 X10*3/uL [facility] Eosinophils Absolute Auto 0.0 0.0 - 0.4 X10*3/uL [facility] Basophils Absolute Auto 0.0 0.0 - 0.2 X10*3/uL [facility] NRBC Abs Auto 0.000 0.0 - 0.012 X10*3/uL [facility] 06/07/2024 5:57 AM EST 06/07/2024 6:13 AM EST us Generic External Data Provider LAB BLOOD ORDERAB LES Final Result [facility] [address] [place] [phone] * (ABNORMAL) Basic Metabolic Panel (06/07/2024 5:57 AM EST) Only the most recent of2 resultswithin the time period is included. Sodium 137 135 - 145 mmol/L [facility] Potassium 3.5 3.3 - 5.1 mmol/L [facility] Chloride 105 96 - 108 mmol/L [facility] Carbon Dioxide 25 22 - 29 mmol/L [facility] Anion Gap 11(L) 12 - 20 [facility] Urea Nitrogen (BUN) 10 9 - 16 mg/dL [facility] Creatinine, Serum 0.62 0.5 - 1.4 mg/dL [facility] Creatinine Clr Calc Pharmacy 107.7 [facility] Comment:Provided height and weight: 154.94 cm,63.049 kg.eGFR (calculated from the MDRD study equation) and eCrCl(calculated from the Cockcroft-Gault equation) are based ondifferent parameters and may not yield comparable results.If eCrCl result is absurd, please check patient'sheight/weight. Estimated Glomerular Filt Rate >60 [facility] Comment:Chronic Kidney Disea se: Estimated GFR < 60 mL/min/1.09e3Nlmvma Kidney Disease: Estimated GFR < 15 mL/min/1.73m2 Glucose 76 60 - 115 mg/dL [facility] Calcium 8.7 8.4 - 10.2 mg/dL [facility] 06/07/2024 5:57 AM EST 06/07/2024 6:13 AM EST Generic External Data Provider LAB BLOOD ORDERAB LES Final Result Performing Organization Address [facility]/ZIP Co de Phone Number [facility] [address] [place] [phone] * (ABNORMAL) Hemoglobin and Hematocrit (06/06/2024 3:18 PM EST) Hemoglobin 12.1 12.0 - 16.0 g/dl [facility] Hematocrit 36.6(L) 37.0 - 47.0 % [facility] 06/06/2024 3:18 PM EST 06/06/2024 3:21 PM EST [employer] External Data Provider LAB BLOOD ORDERAB LES Final Result Performing Organization Address [facility]/ZIP Co de Phone Number [facility] [address] [place] [phone] * Gross and Microscopic Level 3 (06/06/2024 12:18 PM EST) 06/06/2024 12:1 8 PM EST 06/06/2024 2:45 PM EST Narrative [facility] - 06/10/2024 2:21 PM EST ----- ------- Name: Shavonne Carrillo ? Age/Sex: 34/F ? : 1990 Unit#: [id number] ?? Attend Dr: Alex Tyler MD ?Re06/06/24 ?Status: DEP SDC ? Location: HO.SSS ?Disch: ? ----- ------- SPEC : [id number] ?RECD: 06/06/24-1444 ? STATUS: ??SOUT ? REQ NUM: [id number] ? SAVI: 06/06/24-1218 ? SUBM DR: Alex Tyler MD ? ENTERED: ??06/06/24 ?SP TYPE: Surgical ? OTHR DR: Halina [...] distinct cysts, lesions or nodules are identified. ??Mathematical Physicist sections are submitted in cassettes A1-A3. CEDS Copies To: ?? Halina Mayberry MD ?? [facility] ?? [address] ?? [place] [address] ?? [phone] ?? Aelx Tyler MD ?? [facility] ?? [address] ?? [place] [address] ?? [phone] ? CONTINUED ON NEXT PAGE ----- ------- Name: Shavonne Carrillo ? Age/Sex: 34/F ? : 1990 Unit#: [id number] ?? Attend Dr: Alex Tyler MD ?Re06/06/24 ?Status: DEP SDC ? Location: HO.SSS ?Disch: ? ----- ------- SPEC : [id number] ?RECD: 06/06/24-4 ? STATUS: ??SOUT ? REQ NUM: [id number] ? SAVI: 06/06/24-1218 ? SUBM DR: Alex Tyler MD ? ENTERED: ??06/06/248205 ?SP TYPE: Surgical ? OTHR DR: Halina Mayberry MD ? ORDERED: ??Gross Micro L3 ? ----- ------- Signed (signature on file) Randy Kahn MD 06/10/24 1421 ? ----- ------- ? END OF REPORT ? us Generic External Data Provider LAB CYTOLOGY ORDE RABLES Final Result Performing Organization Address [facility] de Phone Number [facility] [address] [place] [phone] * Type and screen (05/28/2024 1:25 PM EST) Blood Type OP [facility] Antibody Screen NEGATIVE [facility] 05/28/2024 1:25 PM EST 05/28/2024 1:58 PM EST Narrative [facility] - 05/28/2024 2:34 PM EST WITNESSED BY NELY:Call Blood Bank (ext. [phone]) to band patient on admission.Type and Screen in effect until 2300 on [id number] expiration changed by ALEXANDRIA on 05/28/24Reason: PAT SPEC Generic External Data Provider LAB BLOOD BANK TE ST ORDERABLES Final Result Performing Organization Address [facility]/State/ZIP Co de Phone Number [facility] [address] [place] [phone] * Partial Thromboplastin Time, Activated (APTT) (05/28/2024 12:58 PM EST) Partial Thromboplastin Time 31.9 26.0 - 36.8 SEC [facility] Comment:For information rega rding the monitoring of direct thrombininhibitors, please refer to Pharmacy. 05/28/2024 12:5 8 PM EST 05/28/2024 1:58 PM EST us Generic External Data Provider LAB BLOOD ORDERAB LES Final Result Performing Organization Address [facility] Co de Phone Number [facility] [address] [place] [phone] * (ABNORMAL) Prothrombin Time-INR (05/28/2024 12:58 PM EST) Prothrombin Time 14.0(H) 10.9 - 12.4 SEC [facility] INTERNATIONAL NORM RATIO 1.2(H) 0.9 - 1.1 [facility] Comment:INTERNATIONAL NORMAL IZED RATIO (INR) REFERENCE [...] ORDERAB LES Final Result Performing Organization Address [facility] Co de Phone Number [facility] [address] [place] [phone] * Hemoglobin A1c (11/09/2023 10:44 AM EDT) Hemoglobin A1c 5.0 <6.0 % [facility] Comment:Hemoglobin A1C Refer ence Range Adults: 4.8 - 6.0 % Non diabetic: < 6.0 % Goal: < 7.0 %Additional Action Suggested: > 8.0 %Note: Hemoglobin A1c results are invalid for patients with abnormal amounts of HbF. Blood transfusions may impact the HbA1c concentration in the patient sample. Estimated Average Glucose 97 mg/dL [facility] Comment:eAG = Estimated ave rage glucose which is %A1C expressed asaverage glucose, using the formula of the V6Q-XqnbjflUuratrh Glucose study (ADAG), Diabetes Care, Vol.31,#8,2007 11/09/2023 10:4 4 AM EDT 11/09/2023 10:44 AM EDT us Generic External Data Provider LAB BLOOD ORDERAB LES Final Result Performing Organization Address City/State/[facility] Co de Phone Number [facility] [address] [place] [phone] * (ABNORMAL) Lipid Panel, Standard (11/09/2023 10:44 AM EDT) Triglycerides 91 <150 mg/dL [facility] Comment:Desirable Triglyceri de: less than 150 mg/dLBorderline High Triglyceride 150-199 mg/dLHigh Triglyceride: 200-499 mg/dLVery High Triglyceride: greater than or equal to 5OO mg/dL Cholesterol 187 <200 mg/dL [facility] Comment:Desirable Cholestero l: less than 200 mg/dLBorderline High Cholesterol: 200-239 mg/dLHigh Cholesterol: greater than 239 mg/dL LDL Cholesterol Calculated 129(H) <100 mg/dL [facility] Comment:Desirable LDL: less than 100 mg/dLNear Optimal/Above Optimal LDL: 110- 129 mg/dLBorderline High LDL: 130-159 mg/dLHigh LDL: 160-189 mg/dLVery High LDL: greater than or equal to 190 mg/dL HDL Cholesterol 40(L) >40 mg/dL [facility] Comment:Desirable HDL: great er than 40 mg/dL Note: This HDL assay may give artificially low results in patients with liver disease. 11/09/2023 10:4 4 AM EDT 11/09/2023 10:44 AM EDT us Generic External Data Provider LAB BLOOD ORDERAB LES Final Result [facility] [address] [place] [phone] * THINPREP TIS PAP AND HPV mRNA E6/E7, CT/NG, TRICH (04/01/2021 10:20 AM EST) Chlamydia trachomatis RNA, TMA, Urogenital NOT DETECTED NOT DETECTED [facility] Clinical Information: None given [facility] COMMENT SEE COMMENT [facility] Comment: The analytical performance characteristics of this assay, when used to test SurePath(TM) specimens have been determined by [employer]. The modifications have not been cleared or approved by the FDA. This assay has been validated pursuant to the CLIA regulations and is used for clinical purposes. ?? For additional information, please refer to https://education.[employer]faq/HMW252 (This link is being provided for information/ [...] has been evaluated with computer assisted technology. [email or web address] SYSTEM Gas Cutter: SEE COMMENT [facility] Comment: NSS, CT(ASCP) CT screening location: [address] ??[phone] HPV nRNA E6/E7 Not Detected Not Detected [facility] Comment: Methodology: Full Stack Net Developer-Mediated Amplification This assay detects E6/E7 viral messenger RNA (mRNA) from 14 high-risk HPV types (16,18,31,33,35,39,45,51,52,56,58,59,66,68). ? The analytical performance characteristics of this assay have been determined by [employer]. The modifications have not been cleared or approved by the FDA. This assay has been validated pursuant to the CLIA regulations and is used for clinical purposes. ?? For additional information, please refer to http://SyMynd.[employer]faq/HMZ847l9 (This link if provided for information/ educational [...] of this assay have been determined by [employer]. The modifications have not been cleared or approved by the FDA. This assay has been validated pursuant to the CLIA regulations and is used for clinical purposes. ?? For additional information, please refer to http://SyMynd.[employer] faq/Trichomonastma (This link is being provided for information/ educational purposes only.) ?? 04/01/2021 10:2 0 AM EST us Halina Uriostegui MD LAB PATHOLOGY ORDERAB LES Final Result [facility] [address] [place] [address], * Pap Smear (04/01/2021 12:00 AM EST) Swab Halina Uriostegui MD LAB CYTOLOGY ORDERABL ES Final Result [address], [place] [phone] * HIV 1/2 ANTIGEN/ANTIBODY,FOURTH GENERATION W/RFL (05/29/2020 9:10 AM EST) HIV-1/2 ANTIGEN AND ANTIBODIES, 4TH GENERATION W/ REFLEX NON-REACT UMA NON-REACT UMA [facility] Comment: HIV-1 antigen and HIV-1/HIV-2 [...] ? For additional information please refer to http://SyMynd.[employer]faq/IPL692 (This link is being provided for informational/ educational purposes only.) ? The performance of this assay has not been clinically validated in patients less than 2 years old. ?? 05/29/2020 9:10 AM EST Halina Uriostegui MD LAB BLOOD ORDERABLES Final Result [facility] [address] from Last 3 Months or Most Recently Relevant to Health Maintenance [facility] (MEDICAID) Care Teams Tenoner Operator Relationship Specialty Start Date End Date Halina Mayberry MD [address] [place] [address] PCP - General Family Medicine 06/05/20
--- OUTSIDE RECORDS SUMMARY | 2024-07-04 14:55 | XMS_ITS | Encounter Summary ---
Author Organization [employer] Address [address] [facility] [place] [address] Care Team Providers Care Bellman Driver Name Role Phone Halina Mayberry MD Primary Care Provide r Reason for Visit * Reason Comments Med Change Request Encounter Details Date Type Department Care Team ([facility] st Contact Info) Description 09/15/2023 Refill [facility] [address] [place] [address] Yue House MD [address] [place] [address] Social History Tobacco Use Types Packs/Day Years [...] Description 10/29/2024 10:00 AM EDT Office Visit [facility] [address] [place] [address] Yovany, Ana [address] [place] [address] documented as of this encounter Visit Diagnoses Not on filedocumented in this encounter Additional Health Concerns Assessment Noted Time PHQ-9 Depression Total Score: 0 07/07/19 24 9:51 AM EST documented as of this encounter Care Teams Bellman Driver Relationship Specialty Start Date End Date Halina Mayberry MD [address] [place] [address] PCP - General Family Medicine 06/05/20 documented as of this encounter
--- OUTSIDE RECORDS SUMMARY | 2024-07-04 14:55 | XMS_ITS | Encounter Summary ---
Author Organization [employer] Address [address] [facility] [address] [place] [address] Care Team Providers Care Senior Net Application Developer Name Role Phone Halina Mayberry MD Primary Care Provide r Encounter Details Date Type Department Care Team (Latest Contact Info) Description 09/22/2021 Abstract [facility] Dental, Provider, DDS Social History Tobacco [...] Description 10/29/2024 10:00 AM EDT Office Visit [facility] [address] [place] [address] Yovany, Ana [address] [place] [address] documented as of this encounter Visit Diagnoses Not on filedocumented in this encounter Care Teams Senior Net Application Developer Relationship Specialty Start Date End Date Halina Mayberry MD [address] [place] [address] PCP - General Family Medicine 06/05/20 documented as of this encounter
[2024-07-04 15:19] VITALS: BP 101/63; PULSE 94; TEMP 36.9; O2SAT 98
--- NOTE | 2024-07-04 15:19 | A.OFFVIS_ITS ---
VS Expanded 07/04/24 15:19 BP 101/63 Blood Pressure Location Rt brachial Blood Pressure Position Sitting Pulse 94 Pulse Source Pulse Oximeter Temp 98.5 F Temperature Source Temporal Artery Scan Pulse Oximetry 98 Oxygen Delivery Method Room Air Intake Visit Reasons: (OV) s/p Panniculectomy 06/06/24 Allergies No Known Allergies Allergy (Verified 07/04/24 15:20) HPI Comments Details: Pleasant 34-year-old female returns to the office today in follow-up. She is status post panniculectomy on 06/06/2024. She had her drain removed last week and has no complaints. She continues taking antibiotics as required and following the meal plan. She did develop a rash to the adhesive of the tape and was told to stop putting bandages on. She has done this without difficulty and has had no significant adverse effects. She has been taking Benadryl with improvement of the itch. [facility] Medical History Bipolar disorder Migraines COVID-19 BMI 37.0-37.9, adult Anxiety Depression Insomnia PCOS (polycystic ovarian syndrome) Morbid obesity Surgical History S/P laparoscopic sleeve gastrectomy Hx of tubal ligation Family History Mother Cancer Father No problems noted. Daughter No problems noted. Son ADHD Son No problems noted. Son No problems noted. 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 Umbilical incision healing and umbilicus is viable. Two sutures removed without difficulty. Assessment & Plan Assessment & Plan (1) S/P panniculectomy: Code(s): Z98.890 - Other specified postprocedural states Category: Surgical Plan: Continue abdominal binder Continue antibiotics x1 more week Continue meal plan. Return to clinic as scheduled.
== END 2024-07-04 15:25 | disposition home or self-care (01) ==
LOC: HO.HBS 14:51
PROVIDERS: PCP Internal Medicine; Visit Provider Physician Assistant Surgical
DX: Z98.890 Other specified postprocedural states (principal)
CPT/HCPCS: 99024

== ENCOUNTER → 2024-07-04 14:51 | Outpatient (BNVA) | payer OTHER, SELFPAY | PROVIDERS: PCP Internal Medicine; Visit Provider Physician Assistant Surgical | DX: Z98.890 Other specified postprocedural states (principal); Z87.2 Personal history of diseases of the skin and subcutaneous tissue | CPT/HCPCS: 99212 ==

== ENCOUNTER 2024-07-12 14:55 | Outpatient (AMB) | payer OTHER, SELFPAY ==
--- NOTE | 2024-07-12 15:03 | MHC.OFFVISWM ---
VS Expanded 07/12/24 15:04 BP 116/68 Blood Pressure Location Rt brachial Blood Pressure Position Sitting Pulse 100 Pulse Source Pulse Oximeter Temp 98.5 F Temperature Source Temporal Artery Scan Pulse Oximetry 100 Oxygen Delivery Method Room Air Intake Visit Reasons: (OV) s/p Panniculectomy 06/06/24 Station Mechanic Apprentice Required: No Allergies No Known Allergies Allergy (Verified 07/04/24 15:20) HPI Comments Details: Patient is a pleasant 34-year-old female who returns to the office today in follow-up. She is status post panniculectomy performed on 06/06/2024. She states that she is doing very well. She has 1 more day left of her antibiotics as her drain was removed a proximally 2 weeks ago. She denies any pain at the incision sites. She continues to follow her meal plan and wear her abdominal binder [facility] Medical History Bipolar disorder Migraines COVID-19 BMI 37.0-37.9, adult Anxiety Depression Insomnia PCOS (polycystic ovarian syndrome) Morbid obesity Surgical History S/P laparoscopic sleeve gastrectomy Hx of tubal ligation Family History Mother Cancer Father No problems noted. Daughter No problems noted. Son ADHD Son No problems noted. Son No problems noted. 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 Umbilicus is viable. No evidence of dehiscence or infection. Assessment & Plan Assessment & Plan (1) S/P panniculectomy: Code(s): Z98.890 - Other specified postprocedural states Category: Surgical Plan: Status post panniculectomy on 06/06/24. Doing very well. Happy with the results. Continue current antibiotics and meal plan. Antibiotics. After today. Continue to wear abdominal binder. Follow-up in the office in 1 week.
[2024-07-12 15:04] VITALS: BP 116/68; PULSE 100; TEMP 36.9; O2SAT 100
--- OUTSIDE RECORDS SUMMARY | 2024-07-12 15:06 | XMS_ITS | Clinical Summary ---
Author Organization [employer] Address [address] [facility] 7t [place] [address] Care Team Providers Care Art History Professor Name Role Phone Halina Mayberry MD Primary [...] referred to PT after ED visit, to [facility], has appointment on 09/17 Continue flexeril [...] Description 04/29/2024 8:00 AM EST Office Visit [facility] [address] [place] [address] Ana Pedroza Dental calculus (Primary Dx); Gingival bleeding; Incipient enamel caries 04/14/2024 Refill [facility] [address] [place], [place] [phone] Orly Clark MD from Last 3 Months [...] Description 10/29/2024 10:00 AM EDT Office Visit [facility] [address] [place], [place] [phone] Yovany, Ana [address] [place] [address] Health Maintenance Due Date Last Done Comments [...] Blood Count 7.0 4.8 - 10.8 X10*3/uL [facility] Red Blood Count 4.06(L) 4.20 - 5.50 X10*6/uL [facility] Hemoglobin 10.8(L) 12.0 - 16.0 g/dl [facility] Hematocrit 32.6(L) 37.0 - 47.0 % [facility] Mean Corpuscular Volume 80.3 80.0 - 98.0 fL [facility] Mean Corpuscular Hemoglobin 26.6(L) 27.0 - 33.0 pg [facility] Mean Corpuscular HGB Conc 33.1 31.0 - 35.0 g/dl [facility] Red Cell Distribution Width 12.9 11.0 - 16.0 % [facility] Platelet Count 173 160 - 400 X10*3/uL [facility] Mean Platelet Volume 10.9 9.4 - 12.3 fL [facility] Neutrophils Percent Auto 68.5 45 - 73 % [facility] Imm Gran Pct Auto 0.3 0.0 - 0.4 % [facility] Lymphocytes Percent Auto 23.2 20 - 40 % [facility] Monocytes Percent Auto 7.8 2 - 11 % [facility] Eosinophils Percent Auto 0.1 0 - 4 % [facility] Basophils Percent Auto 0.1 0 - 2 % [facility] NRBC Pct Auto 0.0 0.0 - 0.2 /100WBC [facility] Neutrophils Absolute Auto 4.8 2.0 - 8.3 x10*3/uL [facility] Imm Gran Abs Auto 0.02 0.00 - 0.03 X10*3/uL [facility] Lymphocytes Absolute Auto 1.6 1.2 - 4.9 X10*3/uL [facility] Monocytes Absolute Auto 0.6 0.1 - 1.2 X10*3/uL [facility] Eosinophils Absolute Auto 0.0 0.0 - 0.4 X10*3/uL [facility] Basophils Absolute Auto 0.0 0.0 - 0.2 X10*3/uL [facility] NRBC Abs Auto 0.000 0.0 - 0.012 X10*3/uL [facility] 06/07/2024 5:57 AM EST 06/07/2024 6:13 AM EST us Generic External Data Provider LAB BLOOD ORDERAB LES Final Result [facility] [address] [place] [phone] * (ABNORMAL) Basic Metabolic Panel (06/07/2024 5:57 AM EST) Only the most recent of2 resultswithin the time period is included. Sodium 137 135 - 145 mmol/L [facility] Potassium 3.5 3.3 - 5.1 mmol/L [facility] Chloride 105 96 - 108 mmol/L [facility] Carbon Dioxide 25 22 - 29 mmol/L [facility] Anion Gap 11(L) 12 - 20 [facility] Urea Nitrogen (BUN) 10 9 - 16 mg/dL [facility] Creatinine, Serum 0.62 0.5 - 1.4 mg/dL [facility] Creatinine Clr Calc Pharmacy 107.7 [facility] Comment:Provided height and weight: 154.94 cm,63.049 kg.eGFR (calculated from the MDRD study equation) and eCrCl(calculated from the Cockcroft-Gault equation) are based ondifferent parameters and may not yield comparable results.If eCrCl result is absurd, please check patient'sheight/weight. Estimated Glomerular Filt Rate >60 [facility] Comment:Chronic Kidney Disea se: Estimated GFR < 60 mL/min/1.32r2Jitqrv Kidney Disease: Estimated GFR < 15 mL/min/1.73m2 Glucose 76 60 - 115 mg/dL [facility] Calcium 8.7 8.4 - 10.2 mg/dL [facility] 06/07/2024 5:57 AM EST 06/07/2024 6:13 AM EST Generic External Data Provider LAB BLOOD ORDERAB LES Final Result Performing Organization Address [facility]/ZIP Co de Phone Number [facility] [address] [place] [phone] * (ABNORMAL) Hemoglobin and Hematocrit (06/06/2024 3:18 PM EST) Hemoglobin 12.1 12.0 - 16.0 g/dl [facility] Hematocrit 36.6(L) 37.0 - 47.0 % [facility] 06/06/2024 3:18 PM EST 06/06/2024 3:21 PM EST [employer] External Data Provider LAB BLOOD ORDERAB LES Final Result Performing Organization Address [facility]/ZIP Co de Phone Number [facility] [address] [place] [phone] * Gross and Microscopic Level 3 (06/06/2024 12:18 PM EST) 06/06/2024 12:1 8 PM EST 06/06/2024 2:45 PM EST Narrative [facility] - 06/10/2024 2:21 PM EST ----- ------- Name: Shavonne Carrillo ? Age/Sex: 34/F ? : 1990 Unit#: [id number] ?? Attend Dr: Alex Tyler MD ?Re06/06/24 ?Status: DEP SDC ? Location: HO.SSS ?Disch: ? ----- ------- SPEC : [id number] ?RECD: 06/06/24-1444 ? STATUS: ??SOUT ? REQ NUM: [id number] ? SAVI: 06/06/24-1218 ? SUBM DR: Alex [...] distinct cysts, lesions or nodules are identified. ??Grain Processor sections are submitted in cassettes A1-A3. CEDS Copies To: ?? Halina Mayberry MD ?? [facility] ?? [address] ?? [place] [address] ?? [phone] ?? Alex Tyler MD ?? [facility] ?? [address] ?? [place] [address] ?? [phone] ? CONTINUED ON NEXT PAGE ----- ------- Name: Shavonne Carrillo ? Age/Sex: 34/F ? : 1990 Unit#: [id number] ?? Attend Dr: Alex Tyler MD ?Re06/06/24 ?Status: DEP SDC ? Location: HO.SSS ?Disch: ? ----- ------- SPEC : [id number] ?RECD: 06/06/24-4 ? STATUS: ??SOUT ? REQ NUM: [id number] ? SAVI: 06/06/24-1218 ? SUBM DR: Alex Tyler MD ? ENTERED: ??06/06/242051 ?SP TYPE: Surgical ? OTHR DR: Halina Mayberry MD ? ORDERED: ??Gross Micro L3 ? ----- ------- Signed (signature on file) Randy Kahn MD 06/10/24 1421 ? ----- ------- ? END OF REPORT ? us Generic External Data Provider LAB CYTOLOGY ORDE RABLES Final Result Performing Organization Address [facility] de Phone Number [facility] [address] [place] [address] [phone] * Type and screen (05/28/2024 1:25 PM EST) Blood Type OP [facility] Antibody Screen NEGATIVE [facility] 05/28/2024 1:25 PM EST 05/28/2024 1:58 PM EST Narrative [facility] - 05/28/2024 2:34 PM EST WITNESSED BY NELY:Call Blood Bank (ext. [phone]) to band patient on admission.Type and Screen in effect until 2300 on [id number] expiration changed by ALEXANDRIA on 05/28/24Reason: PAT SPEC Generic External Data Provider LAB BLOOD BANK TE ST ORDERABLES Final Result Performing Organization Address [facility]/State/ZIP Co de Phone Number [facility] [address] [place] [phone] * Partial Thromboplastin Time, Activated (APTT) (05/28/2024 12:58 PM EST) Partial Thromboplastin Time 31.9 26.0 - 36.8 SEC [facility] Comment:For information rega rding the monitoring of direct thrombininhibitors, please refer to Pharmacy. 05/28/2024 12:5 8 PM EST 05/28/2024 1:58 PM EST us Generic External Data Provider LAB BLOOD ORDERAB LES Final Result Performing Organization Address [facility] Co de Phone Number [facility] [address] [place] [phone] * (ABNORMAL) Prothrombin Time-INR (05/28/2024 12:58 PM EST) Prothrombin Time 14.0(H) 10.9 - 12.4 SEC [facility] INTERNATIONAL NORM RATIO 1.2(H) 0.9 - 1.1 [facility] Comment:INTERNATIONAL NORMAL IZED RATIO (INR) REFERENCE [...] ORDERAB LES Final Result Performing Organization Address [facility] Co de Phone Number [facility] [address] [place] [phone] * Hemoglobin A1c (11/09/2023 10:44 AM EDT) Hemoglobin A1c 5.0 <6.0 % [facility] Comment:Hemoglobin A1C Refer ence Range Adults: 4.8 - 6.0 % Non diabetic: < 6.0 % Goal: < 7.0 %Additional Action Suggested: > 8.0 %Note: Hemoglobin A1c results are invalid for patients with abnormal amounts of HbF. Blood transfusions may impact the HbA1c concentration in the patient sample. Estimated Average Glucose 97 mg/dL [facility] Comment:eAG = Estimated ave rage glucose which is %A1C expressed asaverage glucose, using the formula of the P2Z-CbufuanUozsuoq Glucose study (ADAG), Diabetes Care, Vol.31,#8,2007 11/09/2023 10:4 4 AM EDT 11/09/2023 10:44 AM EDT us Generic External Data Provider LAB BLOOD ORDERAB LES Final Result Performing Organization Address City/State/[facility] Co de Phone Number [facility] [address] [place] [phone] * (ABNORMAL) Lipid Panel, Standard (11/09/2023 10:44 AM EDT) Triglycerides 91 <150 mg/dL [facility] Comment:Desirable Triglyceri de: less than 150 mg/dLBorderline High Triglyceride 150-199 mg/dLHigh Triglyceride: 200-499 mg/dLVery High Triglyceride: greater than or equal to 5OO mg/dL Cholesterol 187 <200 mg/dL [facility] Comment:Desirable Cholestero l: less than 200 mg/dLBorderline High Cholesterol: 200-239 mg/dLHigh Cholesterol: greater than 239 mg/dL LDL Cholesterol Calculated 129(H) <100 mg/dL [facility] Comment:Desirable LDL: less than 100 mg/dLNear Optimal/Above Optimal LDL: 110- 129 mg/dLBorderline High LDL: 130-159 mg/dLHigh LDL: 160-189 mg/dLVery High LDL: greater than or equal to 190 mg/dL HDL Cholesterol 40(L) >40 mg/dL [facility] Comment:Desirable HDL: great er than 40 mg/dL Note: This HDL assay may give artificially low results in patients with liver disease. 11/09/2023 10:4 4 AM EDT 11/09/2023 10:44 AM EDT us Generic External Data Provider LAB BLOOD ORDERAB LES Final Result [facility] [address] [place] [phone] * THINPREP TIS PAP AND HPV mRNA E6/E7, CT/NG, TRICH (04/01/2021 10:20 AM EST) Chlamydia trachomatis RNA, TMA, Urogenital NOT DETECTED NOT DETECTED [employer] [facility] Clinical Information: None given [facility] COMMENT SEE COMMENT [facility] Comment: The analytical performance characteristics of this assay, when used to test SurePath(TM) specimens have been determined by [employer]. The modifications have not been cleared or approved by the FDA. This assay has been validated pursuant to the CLIA regulations and is used for clinical purposes. ?? For additional information, please refer to https://education.MDJunction/faq/RBL881 (This link is being provided for information/ [...] has been evaluated with computer assisted technology. [employer] SYSTEM Radiographer Mammographer: SEE COMMENT [employer] [facility] Comment: NSS, CT(ASCP) CT screening location: [address] ??[phone] HPV nRNA E6/E7 Not Detected Not Detected [facility] Comment: Methodology: Lactation Consultant-Mediated Amplification This assay detects E6/E7 viral messenger RNA (mRNA) from 14 high-risk HPV types (16,18,31,33,35,39,45,51,52,56,58,59,66,68). ? The analytical performance characteristics of this assay have been determined by [employer]. The modifications have not been cleared or approved by the FDA. This assay has been validated pursuant to the CLIA regulations and is used for clinical purposes. ?? For additional information, please refer to http://Zapier.MDJunction/faq/QPB237v2 (This link if provided for information/ educational [...] of this assay have been determined by [employer]. The modifications have not been cleared or approved by the FDA. This assay has been validated pursuant to the CLIA regulations and is used for clinical purposes. ?? For additional information, please refer to http://Zapier.MDJunction/ faq/Trichomonastma (This link is being provided for information/ educational purposes only.) ?? 04/01/2021 10:2 0 AM EST us Halina Uriostegui MD LAB PATHOLOGY ORDERAB LES Final Result [employer] [facility] [address] [place] [address], * Pap Smear (04/01/2021 12:00 AM EST) Swab Halina Uriostegui MD LAB CYTOLOGY ORDERABL ES Final Result [address], [place] [phone] * HIV 1/2 ANTIGEN/ANTIBODY,FOURTH GENERATION W/RFL (05/29/2020 9:10 AM EST) HIV-1/2 ANTIGEN AND ANTIBODIES, 4TH GENERATION W/ REFLEX NON-REACT UMA NON-REACT UMA [facility] Comment: HIV-1 antigen and [...] ? For additional information please refer to http://Zapier.MDJunction/faq/NZH871 (This link is being provided for informational/ educational purposes only.) ? The performance of this assay has not been clinically validated in patients less than 2 years old. ?? 05/29/2020 9:10 AM EST Halina Uriostegui MD LAB BLOOD ORDERABLES Final Result [facility] Critical access hospital [facility] [address] from Last 3 Months or Most Recently Relevant to Health Maintenance Insurance [facility] (MEDICAID) Care Teams Art History Professor Relationship Specialty Start Date End Date Halina Mayberry MD [address] [place] [address] PCP - General Family Medicine 06/05/20
--- OUTSIDE RECORDS SUMMARY | 2024-07-12 15:06 | XMS_ITS | Encounter Summary ---
Author Organization [employer] Address [address] [facility] 7 [place] [address] Care Team Providers Care Transportation Dispatcher Name Role Phone Halina Mayberry MD Primary Care Provide r Encounter Details Date Type Department Care Team (Latest Contact Info) Description 09/22/2021 Abstract [facility] Dental, Provider, DDS Social History Tobacco [...] Description 10/29/2024 10:00 AM EDT Office Visit [facility] [address] [place] [address] Yovany, Ana [address] [place] [address] documented as of this encounter Visit Diagnoses Not on filedocumented in this encounter Care Teams Transportation Dispatcher Relationship Specialty Start Date End Date Halina Mayberry MD [address] [place] [address] PCP - General Family Medicine 06/05/20 documented as of this encounter
--- OUTSIDE RECORDS SUMMARY | 2024-07-12 15:06 | XMS_ITS | Encounter Summary ---
Author Organization [employer] Address [address] [facility] [address] 7[address] [place] [address] Care Team Providers Care Keg Header Name Role Phone Halina Mayberry MD Primary Care Provide r Reason for Visit * Reason Comments Med Change Request Encounter Details Date Type Department Care Team ([facility] st Contact Info) Description 09/15/2023 Refill [facility] [address] [place] [address] Yue House MD [address] [place] [address] Social History Tobacco Use Types Packs/Day Years [...] Description 10/29/2024 10:00 AM EDT Office Visit [facility] [address] [place] [address] Yovany, Ana [address] [place] [address] documented as of this encounter Visit Diagnoses Not on filedocumented in this encounter Additional Health Concerns Assessment Noted Time PHQ-9 Depression Total Score: 0 07/07/19 24 9:51 AM EST documented as of this encounter Care Teams Keg Header Relationship Specialty Start Date End Date Halina Mayberry MD [address] [place] [address] PCP - General Family Medicine 06/05/20 documented as of this encounter
--- OUTSIDE RECORDS SUMMARY | 2024-07-12 15:06 | XMS_ITS | Encounter Summary ---
Author Organization [employer] Address [address] [facility] 7t [place] [address] Care Team Providers Care Curriculum Manager Name Role Phone Halina Mayberry MD Primary Care Provide r Encounter Details Date Type Department Care Team (Late Contact Info) Description 06/13/2022 Telephone [facility] [address] [place] [address] Halina Mayberry MD [address] [place] [address] Social History Tobacco Use Types Packs/Day Years [...] 10:00 AM EDT Office Visit [facility]ULT [facility] [address] [place] [address] Ana Pedroza [address] [place] [address] documented as of this encounter Visit Diagnoses Not on filedocumented in this encounter Care Teams Curriculum Manager Relationship Specialty Start Date End Date Halina Mayberry MD [address] [place] [address] PCP - General Family Medicine 06/05/20 documented as of this encounter
== END 2024-07-12 15:10 | disposition home or self-care (01) ==
PROVIDERS: PCP Internal Medicine; Visit Provider Physician Assistant Surgical
DX: Z98.890 Other specified postprocedural states (principal)
CPT/HCPCS: 99024

== ENCOUNTER → 2024-07-12 14:55 | Outpatient (BNVA) | payer OTHER, SELFPAY | PROVIDERS: PCP Internal Medicine; Visit Provider Physician Assistant Surgical | DX: Z48.817 Encounter for surgical aftercare following surgery on the skin and subcutaneous tissue (principal); Z98.890 Other specified postprocedural states | CPT/HCPCS: 99212 ==

== ENCOUNTER 2024-07-18 15:35 | Outpatient (AMB) | payer OTHER, SELFPAY ==
--- NOTE | 2024-07-18 15:36 | A.OFFVIS_ITS ---
VS Expanded 07/18/24 15:37 BP 102/64 Blood Pressure Location Lt brachial Blood Pressure Position Sitting Pulse 101 H Oxygen Flow Rate 141.6 Height 5 ft 1 in Body Fat % 32.9 Body Fat Mass 46.6 Fat Free Mass 95.0 Visceral Fat Rating 5.0 Body Water % 48.1 Body Water Mass 68.2 Muscle Mass/Score 90.2 Basal Metabolic Rate/Score 1,317 Intake Visit Reasons: (OV) s/p Panniculectomy 06/06/24 Intake Note: Follow-up sp Panniculectomy 06/06/24 feeling good Automotive Tire Tester Required: No Wet Cleaner Machine: Wet Cleaner Machine Present Accompanied by: Spouse Allergies No Known Allergies Allergy (Verified 07/04/24 15:20) HPI Comments Details: Pleasant 34-year-old female returns to the office today in follow-up. She is status post panniculectomy on 06/06/2024. She is doing very well. Her drain was removed and she has had no further abdominal bloating. She has completed her antibiotics. She is following the meal plan. She is not exercising at this time. She offers no complaints at today's visit and is satisfied with the outcome of her procedure. [facility] Medical History Bipolar disorder Migraines COVID-19 BMI 37.0-37.9, adult Anxiety Depression Insomnia PCOS (polycystic ovarian syndrome) Morbid obesity Surgical History S/P laparoscopic sleeve gastrectomy Hx of tubal ligation Family History Mother Cancer Father No problems noted. Daughter No problems noted. Son ADHD Son No problems noted. Son No problems noted. 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 No evidence of dehiscence or infection. Assessment & Plan Assessment & Plan (1) S/P panniculectomy: Code(s): Z98.890 - Other specified postprocedural states Category: Surgical Plan: Patient is doing very well. She will discuss with Dr. Tyler starting treadmill. She was advised no weightlifting whatsoever times 3 months additionally, no abdominal exercises for 3 months. Continue to follow meal plan. Return to the office in 2 weeks.
[2024-07-18 15:37] VITALS: BP 102/64; PULSE 101
--- OUTSIDE RECORDS SUMMARY | 2024-07-18 18:56 | XMS_ITS | Encounter Summary ---
Author Organization [employer] Address [address] [facility] [address] [place] [address] Care Team Providers Care Manager Plumbing Name Role Phone Halina Mayberry MD Primary Care Provide r Reason for Visit * Reason Comments Med Change Request Encounter Details Date Type Department Care Team ([facility] st Contact Info) Description 09/15/2023 Refill [facility] [address] [place] [address] Yue House MD [address] [place] [address] Social History Tobacco Use Types Packs/Day Years [...] Description 10/29/2024 10:00 AM EDT Office Visit [facility] [address] [place] [address] Yovany, Ana [address] [place] [address] documented as of this encounter Visit Diagnoses Not on filedocumented in this encounter Additional Health Concerns Assessment Noted Time PHQ-9 Depression Total Score: 0 07/07/19 24 9:51 AM EST documented as of this encounter Care Teams Manager Plumbing Relationship Specialty Start Date End Date Halina Mayberry MD [address] [place] [address] PCP - General Family Medicine 06/05/20 documented as of this encounter
--- OUTSIDE RECORDS SUMMARY | 2024-07-18 18:56 | XMS_ITS | Encounter Summary ---
Author Organization [employer] Address [address] [facility] 7 [place] [address] Care Team Providers Care Medical Massage Therapist Name Role Phone Halina Mayberry MD Primary Care Provide r Encounter Details Date Type Department Care Team (Latest Contact Info) Description 09/22/2021 Abstract [facility] CONVERSION[facility] Dental, Provider, DDS Social History Tobacco [...] Description 10/29/2024 10:00 AM EDT Office Visit [facility] [address] [place] [address] Yovany, Ana [address] [place] [address] documented as of this encounter Visit Diagnoses Not on filedocumented in this encounter Care Teams Medical Massage Therapist Relationship Specialty Start Date End Date Halina Mayberry MD [address] [place] [address] PCP - General Family Medicine 06/05/20 documented as of this encounter
--- OUTSIDE RECORDS SUMMARY | 2024-07-18 18:56 | XMS_ITS | Clinical Summary ---
Author Organization [employer] Address [address] [facility] 7t [place] [address] Care Team Providers Care Core Shaper Name Role Phone Halina Mayberry MD Primary [...] referred to PT after ED visit, to [facility], has appointment on 09/17 Continue flexeril [...] Description 04/29/2024 8:00 AM EST Office Visit [facility] [address] [facility] [place] [address] Ana Pedroza Dental calculus (Primary Dx); Gingival bleeding; Incipient enamel caries from Last 3 Months Immunizations Name Administration [...] Description 10/29/2024 10:00 AM EDT Office Visit [facility] [address] [place] [address] Yovany, Ana [address] [place] [address] Health Maintenance Due Date Last Done Comments [...] X-Ray: Full Mouth 06/06/2023 06/05/2020 COVID-19 Vaccine ( - season) 2024 11/21/2020, 10/31/2020 Influenza Vaccine (#1) 2024 06/19/2020 Diabetes: Hemoglobin A1C 02/09/202411/08/2 024, 07/07/2023, 03/06/2023, Additional history exists Pap [...] Blood Count 7.0 4.8 - 10.8 X10*3/uL [facility] Red Blood Count 4.06(L) 4.20 - 5.50 X10*6/uL [facility] Hemoglobin 10.8(L) 12.0 - 16.0 g/dl [facility] Hematocrit 32.6(L) 37.0 - 47.0 % [facility] Mean Corpuscular Volume 80.3 80.0 - 98.0 fL [facility] Mean Corpuscular Hemoglobin 26.6(L) 27.0 - 33.0 pg [facility] Mean Corpuscular HGB Conc 33.1 31.0 - 35.0 g/dl [facility] Red Cell Distribution Width 12.9 11.0 - 16.0 % [facility] Platelet Count 173 160 - 400 X10*3/uL [facility] Mean Platelet Volume 10.9 9.4 - 12.3 fL [facility] Neutrophils Percent Auto 68.5 45 - 73 % [facility] Imm Gran Pct Auto 0.3 0.0 - 0.4 % [facility] Lymphocytes Percent Auto 23.2 20 - 40 % [facility] Monocytes Percent Auto 7.8 2 - 11 % [facility] Eosinophils Percent Auto 0.1 0 - 4 % [facility] Basophils Percent Auto 0.1 0 - 2 % [facility] NRBC Pct Auto 0.0 0.0 - 0.2 /100WBC [facility] Neutrophils Absolute Auto 4.8 2.0 - 8.3 x10*3/uL [facility] Imm Gran Abs Auto 0.02 0.00 - 0.03 X10*3/uL [facility] Lymphocytes Absolute Auto 1.6 1.2 - 4.9 X10*3/uL [facility] Monocytes Absolute Auto 0.6 0.1 - 1.2 X10*3/uL [facility] Eosinophils Absolute Auto 0.0 0.0 - 0.4 X10*3/uL [facility] Basophils Absolute Auto 0.0 0.0 - 0.2 X10*3/uL [facility] NRBC Abs Auto 0.000 0.0 - 0.012 X10*3/uL [facility] 06/07/2024 5:57 AM EST 06/07/2024 6:13 AM EST us Generic External Data Provider LAB BLOOD ORDERAB LES Final Result [facility] [address] [place] [address] [phone] * (ABNORMAL) Basic Metabolic Panel (06/07/2024 5:57 AM EST) Only the most recent of2 resultswithin the time period is included. Sodium 137 135 - 145 mmol/L [facility] Potassium 3.5 3.3 - 5.1 mmol/L [facility] Chloride 105 96 - 108 mmol/L [facility] Carbon Dioxide 25 22 - 29 mmol/L [facility] Anion Gap 11(L) 12 - 20 [facility] Urea Nitrogen (BUN) 10 9 - 16 mg/dL [facility] Creatinine, Serum 0.62 0.5 - 1.4 mg/dL [facility] Creatinine Clr Calc Pharmacy 107.7 [facility] Comment:Provided height and weight: 154.94 cm,63.049 kg.eGFR (calculated from the MDRD study equation) and eCrCl(calculated from the Cockcroft-Gault equation) are based ondifferent parameters and may not yield comparable results.If eCrCl result is absurd, please check patient'sheight/weight. Estimated Glomerular Filt Rate >60 [facility] Comment:Chronic Kidney Disea se: Estimated GFR < 60 mL/min/[id number] Kidney Disease: Estimated GFR < 15 mL/min/1.73m2 Glucose 76 60 - 115 mg/dL [facility] Calcium 8.7 8.4 - 10.2 mg/dL [facility] 06/07/2024 5:57 AM EST 06/07/2024 6:13 AM EST Generic External Data Provider LAB BLOOD ORDERAB LES Final Result Performing Organization Address [facility] de Phone Number [facility] [address] [place] [phone] * (ABNORMAL) Hemoglobin and Hematocrit (06/06/2024 3:18 PM EST) Hemoglobin 12.1 12.0 - 16.0 g/dl [facility] Hematocrit 36.6(L) 37.0 - 47.0 % [facility] 06/06/2024 3:18 PM EST 06/06/2024 3:21 PM EST [employer] External Data Provider LAB BLOOD ORDERAB LES Final Result Performing Organization Address [facility] Phone Number [facility] [address] [place] [phone] * Gross and Microscopic Level 3 (06/06/2024 12:18 PM EST) 06/06/2024 12:1 8 PM EST 06/06/2024 2:45 PM EST Narrative [facility] - 06/10/2024 2:21 PM EST ----- ------- Name: Malagon Colon,Shavonne A ? Age/Sex: 34/F ? : 1990 Unit#: [id number] ?? Attend Dr: Alex Tyler MD ?Re06/06/24 ?Status: DEP SDC ? Location: HO.SSS ?Disch: ? ----- ------- SPEC : [id number] ?RECD: 06/06/24-2 ? STATUS: ??SOUT ? REQ NUM: [id number] ? SAVI: 06/06/24-1218 ? SUBM DR: Alex [...] distinct cysts, lesions or nodules are identified. ??Oil Analyst sections are submitted in cassettes A1-A3. CEDS Copies To: ?? Halina Mayberry MD ?? [facility] ?? [address] ?? [place] [address] ?? [phone] ?? Alex Tyler MD ?? [facility] ?? [address] ?? [place] [address] ?? [phone] ? CONTINUED ON NEXT PAGE ----- ------- Name: Shavonne Carrillo ? Age/Sex: 34/F ? : 1990 Unit#: [id number] ?? Attend Dr: Alex Tyler MD ?Re06/06/24 ?Status: DEP SDC ? Location: HO.SSS ?Disch: ? ----- ------- SPEC : [id number] ?RECD: 06/06/24-5098 ? STATUS: ??SOUT ? REQ NUM: [id number] ? SAVI: 06/06/24-1218 ? SUBM DR: Alex Tyler MD ? ENTERED: ??06/06/24-7968 ?SP TYPE: Surgical ? OTHR DR: Halina Mayberry MD ? ORDERED: ??Gross Micro L3 ? ----- ------- Signed (signature on file) Randy Kahn MD 06/10/24 1421 ? ----- ------- ? END OF REPORT ? Generic External Data Provider LAB CYTOLOGY ORDE RABLES Final Result Performing Organization Address [facility] de Phone Number [facility] [address] [place] [address] [phone] * Type and screen (05/28/2024 1:25 PM EST) Blood Type OP [facility] Antibody Screen NEGATIVE [facility] 05/28/2024 1:25 PM EST 05/28/2024 1:58 PM EST Narrative [facility] - 05/28/2024 2:34 PM EST WITNESSED BY MANCITNURSING:Call Blood Bank (ext. [phone]) to band patient on admission.Type and Screen in effect until 2300 on [id number] expiration changed by ALEXANDRIA on 05/28/24Reason: PAT SPEC Generic External Data Provider LAB BLOOD BANK TE ST ORDERABLES Final Result Performing Organization Address [facility] de Phone Number [facility] [address] [place] [address] [phone] * Partial Thromboplastin Time, Activated (APTT) (05/28/2024 12:58 PM EST) Partial Thromboplastin Time 31.9 26.0 - 36.8 SEC [facility] Comment:For information rega rding the monitoring of direct thrombininhibitors, please refer to Pharmacy. 05/28/2024 12:5 8 PM EST 05/28/2024 1:58 PM EST Generic External Data Provider LAB BLOOD ORDERAB LES Final Result Performing Organization Address [facility]/ZIP Co de Phone Number [facility] [address] [place] [phone] * (ABNORMAL) Prothrombin Time-INR (05/28/2024 12:58 PM EST) Prothrombin Time 14.0(H) 10.9 - 12.4 SEC [facility] INTERNATIONAL NORM RATIO 1.2(H) 0.9 - 1.1 [facility] Comment:INTERNATIONAL NORMAL IZED RATIO (INR) [...] 8 PM EST 05/28/2024 1:58 PM EST [employer] External Data Provider LAB BLOOD ORDERAB LES Final Result Performing Organization Address [facility] Co de Phone Number [facility] [address] [place] [phone] * Hemoglobin A1c (11/09/2023 10:44 AM EDT) Hemoglobin A1c 5.0 <6.0 % [facility] Comment:Hemoglobin A1C Refer ence Range Adults: 4.8 - 6.0 % Non diabetic: < 6.0 % Goal: < 7.0 %Additional Action Suggested: > 8.0 %Note: Hemoglobin A1c results are invalid for patients with abnormal amounts of HbF. Blood transfusions may impact the HbA1c concentration in the patient sample. Estimated Average Glucose 97 mg/dL [facility] Comment:eAG = Estimated ave rage glucose which is %A1C expressed asaverage glucose, using the formula of the F9L-AuwibtwFkmhbcn Glucose study (ADAG), Diabetes Care, Vol.31,#8,Dec. 2007 11/09/2023 10:4 4 AM EDT 11/09/2023 10:44 AM EDT us Generic External Data Provider LAB BLOOD ORDERAB LES Final Result [facility] [address] [place] [phone] * (ABNORMAL) Lipid Panel, Standard (11/09/2023 10:44 AM EDT) Triglycerides 91 <150 mg/dL [facility] Comment:Desirable Triglyceri de: less than 150 mg/dLBorderline High Triglyceride 150-199 mg/dLHigh Triglyceride: 200-499 mg/dLVery High Triglyceride: greater than or equal to 5OO mg/dL Cholesterol 187 <200 mg/dL [facility] Comment:Desirable Cholestero l: less than 200 mg/dLBorderline High Cholesterol: 200-239 mg/dLHigh Cholesterol: greater than 239 mg/dL LDL Cholesterol Calculated 129(H) <100 mg/dL [facility] Comment:Desirable LDL: less than 100 mg/dLNear Optimal/Above Optimal LDL: 110- 129 mg/dLBorderline High LDL: 130-159 mg/dLHigh LDL: 160-189 mg/dLVery High LDL: greater than or equal to 190 mg/dL HDL Cholesterol 40(L) >40 mg/dL [facility] Comment:Desirable HDL: great er than 40 mg/dL Note: This HDL assay may give artificially low results in patients with liver disease. 11/09/2023 10:4 4 AM EDT 11/09/2023 10:44 AM EDT us Generic External Data Provider LAB BLOOD ORDERAB LES Final Result [facility] [address] [place] [address] [phone] * THINPREP TIS PAP AND HPV mRNA E6/E7, CT/NG, TRICH (04/01/2021 10:20 AM EST) Chlamydia trachomatis RNA, TMA, Urogenital NOT DETECTED NOT DETECTED [facility] Clinical Information: None given [facility] COMMENT SEE COMMENT [facility] Comment: The analytical performance characteristics of this assay, when used to test SurePath(TM) specimens have been determined by [employer]. The modifications have not been cleared or approved by the FDA. This assay has been validated pursuant to the CLIA regulations and is used for clinical purposes. ?? For additional information, please refer to https://education.Pulse.io/faq/OAW296 (This link is being provided for information/ [...] has been evaluated with computer assisted technology. [facility] Feed Elevator Worker: SEE COMMENT [facility] Comment: NSS, CT(ASCP) CT screening location: [address] ??[phone] HPV nRNA E6/E7 Not Detected Not Detected [facility] Comment: Methodology: Slot Supervisor-Mediated Amplification This assay detects E6/E7 viral messenger RNA (mRNA) from 14 high-risk HPV types (16,18,31,33,35,39,45,51,52,56,58,59,66,68). ? The analytical performance characteristics of this assay have been determined by [employer]. The modifications have not been cleared or approved by the FDA. This assay has been validated pursuant to the CLIA regulations and is used for clinical purposes. ?? For additional information, please refer to http://Telinet.Pulse.io/faq/HJY742f6 (This link if provided for information/ educational [...] of this assay have been determined by [employer]. The modifications have not been cleared or approved by the FDA. This assay has been validated pursuant to the CLIA regulations and is used for clinical purposes. ?? For additional information, please refer to http://Telinet.Pulse.io/ faq/Trichomonastma (This link is being provided for information/ educational purposes only.) ?? 04/01/2021 10:2 0 AM EST Halina Uriostegui MD LAB PATHOLOGY ORDERAB LES Final Result Performing Organization Address City/[facility]/ZIP Co de Phone Number [facility] [address] * Pap Smear (04/01/2021 12:00 AM EST) Swab Halina Uriostegui MD LAB CYTOLOGY ORDERABL ES Final Result Performing Organization Address City/[facility]/ZIP Co de Phone Number [facility] [address], [place] [phone] * HIV 1/2 ANTIGEN/ANTIBODY,FOURTH GENERATION W/RFL (05/29/2020 9:10 AM EST) HIV-1/2 ANTIGEN AND ANTIBODIES, 4TH GENERATION W/ REFLEX NON-REACT UMA NON-REACT UMA [facility] Comment: HIV-1 antigen and HIV-1/HIV-2 [...] ? For additional information please refer to http://education.Pulse.io/faq/AGG212 (This link is being provided for informational/ educational purposes only.) ? The performance of this assay has not been clinically validated in patients less than 2 years old. ?? 05/29/2020 9:10 AM EST Halina Uriostegui MD LAB BLOOD ORDERABLES Final Result [facility] [address] from Last 3 Months or Most Recently Relevant to Health Maintenance Insurance [facility] - HSN FULL (MEDICAID) Care Teams Core Shaper Relationship Specialty Start Date End Date Halina Mayberry MD [address] [place] [phone] PCP - General Family Medicine 06/05/20
--- OUTSIDE RECORDS SUMMARY | 2024-07-18 18:56 | XMS_ITS | Encounter Summary ---
Author Organization [employer] Address [address] [facility] 7t [place] [address] Care Team Providers Care Hogshead Cooper Name Role Phone Halina Mayberry MD Primary Care Provide r Encounter Details Date Type Department Care Team (Late Contact Info) Description 06/13/2022 Telephone [facility] [address] [place] [address] Halina Mayberry MD [address] [place] [address] Social History Tobacco Use Types Packs/Day Years [...] Description 10/29/2024 10:00 AM EDT Office Visit [facility] [address] [place] [address] Ana Pedroza [address] [place] [address] documented as of this encounter Visit Diagnoses Not on filedocumented in this encounter Care Teams Hogshead Cooper Relationship Specialty Start Date End Date Halina Mayberry MD [address] [place] [address] PCP - General Family Medicine 06/05/20 documented as of this encounter
== END 2024-07-18 15:57 | disposition home or self-care (01) ==
PROVIDERS: PCP Internal Medicine; Visit Provider Physician Assistant Surgical
DX: Z98.890 Other specified postprocedural states (principal)
CPT/HCPCS: 99024

== ENCOUNTER → 2024-07-18 15:35 | Outpatient (BNVA) | payer SELFPAY | PROVIDERS: PCP Internal Medicine; Visit Provider Physician Assistant Surgical | DX: Z48.817 Encounter for surgical aftercare following surgery on the skin and subcutaneous tissue (principal); Z98.890 Other specified postprocedural states | CPT/HCPCS: 99212 ==

== ENCOUNTER 2024-08-06 13:23 | Outpatient (AMB) | payer OTHER, SELFPAY ==
--- NOTE | 2024-08-06 13:40 | MHC.OFFVISWM ---
VS Expanded 08/06/24 13:45 BP 116/62 Blood Pressure Location Rt brachial Blood Pressure Position Sitting Pulse 76 Pulse Source Pulse Oximeter Temp 98.0 F Temperature Source Temporal Artery Scan Pulse Oximetry 99 Oxygen Delivery Method Room Air Intake Visit Reasons: (OV) s/p Panniculectomy 06/06/24 Allergies No Known Allergies Allergy (Verified 07/04/24 15:20) HPI Comments Details: Patient is a pleasant 34-year-old female who returns to the office today in follow-up. She is 2 months post panniculectomy performed on 06/06/2024. Overall she is doing well. She offers no significant complaints at today's visit. She does state that she had a very small punctate area in the mid incision that bled a little bit but this has since stopped. She communicated this with Dr. Tyler. She is now putting a barrier between her skin and the binder. She feels as though was the Velcro of her binder. [facility] Medical History Bipolar disorder Migraines COVID-19 BMI 37.0-37.9, adult Anxiety Depression Insomnia PCOS (polycystic ovarian syndrome) Morbid obesity Surgical History S/P laparoscopic sleeve gastrectomy Hx of tubal ligation Family History Mother Cancer Father No problems noted. Daughter No problems noted. Son ADHD Son No problems noted. Son No problems noted. 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 Umbilicus is viable. No open areas. Assessment & Plan Assessment & Plan (1) S/P panniculectomy: Code(s): Z98.890 - Other specified postprocedural states Category: Surgical Plan: Doing very well postop. She is now given authorization to begin exercising again. She will do so gradually. We will have her return to the office as scheduled.
[2024-08-06 13:45] VITALS: BP 116/62; PULSE 76; TEMP 36.7; O2SAT 99
--- OUTSIDE RECORDS SUMMARY | 2024-08-06 15:44 | XMS_ITS | Encounter Summary ---
Author Organization [employer] Address [address] [facility] 7t [place] [address] Care Team Providers Care Airplane Rigger Name Role Phone Halina Mayberry MD Primary Care Provide r Reason for Visit * Reason Onset Date Comments Med Refill 07/28/2024 Encounter Details Date Type Department Care Team (Late st Contact Info) Description 07/28/[address] [facility] [address] [place] [address] Orly Clark MD [address] [place] [address] Social History Tobacco Use Types Packs/Day Years [...] Description 10/29/2024 10:00 AM EDT Office Visit [facility] [address] [place] [address] Yovany, Ana [address] [place] [address] documented as of this encounter Visit Diagnoses Not on filedocumented in this encounter Additional Health Concerns Assessment Noted Time PHQ-9 Depression Total Score: 0 07/07/19 24 9:51 AM EST documented as of this encounter Care Teams Airplane Rigger Relationship Specialty Start Date End Date Halina Mayberry MD [address] [place] [address] PCP - General Family Medicine 06/05/20 documented as of this encounter
--- OUTSIDE RECORDS SUMMARY | 2024-08-06 15:44 | XMS_ITS | Encounter Summary ---
Author Organization [employer] Address [address] [facility] [address] 7[address] [place] [address] Care Team Providers Care Lead Accountant Name Role Phone Halina Mayberry MD Primary Care Provide r Reason for Visit * Reason Comments Med Change Request Encounter Details Date Type Department Care Team ([facility] st Contact Info) Description 09/15/2023 Refill [facility] [address] [place] [address] Yue House MD [address] [place] [address] Social History Tobacco Use Types Packs/Day Years [...] Description 10/29/2024 10:00 AM EDT Office Visit [facility] [address] [place] [address] Yovany, Ana [address] [place] [address] documented as of this encounter Visit Diagnoses Not on filedocumented in this encounter Additional Health Concerns Assessment Noted Time PHQ-9 Depression Total Score: 0 07/07/19 24 9:51 AM EST documented as of this encounter Care Teams Lead Accountant Relationship Specialty Start Date End Date Halina Mayberry MD [address] [place] [address] PCP - General Family Medicine 06/05/20 documented as of this encounter
--- OUTSIDE RECORDS SUMMARY | 2024-08-06 15:44 | XMS_ITS | Encounter Summary ---
Author Organization [employer] Address [address] [facility] 7 [place] [address] Care Team Providers Care Implant Coordinator Name Role Phone Halina Mayberry MD Primary Care Provide r Encounter Details Date Type Department Care Team (Latest Contact Info) Description 09/22/2021 Abstract [facility] CONVERSION[facility] Dental, Provider, DDS Social History [...] Description 10/29/2024 10:00 AM EDT Office Visit [facility] ADULT [facility] [address] [place] [address] Yovany, Ana [address] [place] [address] documented as of this encounter Visit Diagnoses Not on filedocumented in this encounter Care Teams Implant Coordinator Relationship Specialty Start Date End Date Halina Mayberry MD [address] [place] [address] PCP - General Family Medicine 06/05/20 documented as of this encounter
--- OUTSIDE RECORDS SUMMARY | 2024-08-06 15:44 | XMS_ITS | Clinical Summary ---
Author Organization [employer] Address 75 [facility] [address] [place] [address] Care Team Providers Care Marketing Writer Name Role Phone Halina Mayberry MD Primary Care Provide r Allergies Active Allergy Reactions Criticality Noted Date Comments Aspirin Hives 06/26/2020 Medications Yeimy 3-0.02 MG tabletIndications :PMDD (premenstrual dysphoric disorder) TAKE 1 TABLET BY MOUTH EVERY DAY IN THE MORNING 84 tablet 023 Active Additional Information Patient not taking.Reported on 04/29/2024 venlafaxine XR (Effexor XR) 75 MG 24 hr capsule Take 1 capsule by mouth in the morning. 023 Active pantoprazole (ProtoNix) 40 MG EC tablet Take 1 tablet by mouth in the morning. Active ondansetron ODT (Zofran-ODT) 4 MG disintegrating tablet 4 MG ORALLY EVERY 6 HOURS NEEDED FOR NAUSEA AND VOMITING ONLY USE IF YOU HAVE NAUSEA Active loratadine (Claritin) 10 MG tabletIndications :Viral upper respiratory tract infection TAKE 1 TABLET BY MOUTH TWICE A DAY 180 tablet Active Additional Information Patient not taking.Reported on 04/29/2024 cyclobenzaprine (Flexeril) 10 MG tablet Take 1 tablet (10 mg) by mouth at bedtime for 10 days. 10 tablet Active Lidocaine 0.5 % gel Apply 2 inches bid to affected area prn pain 170 g 024 Active Additional Information Patient not taking.Reported on 04/29/2024 Lidocaine 4 % gelIndications:Sp rain of left knee, unspecified ligament, subsequent encounter Apply 2 inches bid topically to affected area prn pain 113 g Active Additional Information Patient not taking.Reported on 04/29/2024 diphenhydrAMINE (BENADryl) 25 MG tablet Take 1 tablet (25 mg) by mouth if needed at bedtime for itching. 30 tablet 2 Active cetirizine (ZyrTEC) 10 MG tablet TAKE 1 TABLET BY MOUTH EVERY DAY 90 tablet 1 Active OXcarbazepine (Trileptal) 300 MG tablet TAKE 3 TABLET BY MOUTH EVERY NIGHT AT BEDTIME TAKE EXTRA 3RD TABLET NEEDED MENSTRUAL PERIOD/ PMS Active buPROPion SR (Wellbutrin SR) 100 MG 12 hr tablet Take 200 mg by mouth Once per day. Active ketoconazole (NIZOral) 2 % shampooIndication s:Seborrheic dermatitis Apply topically 2 (two) times a week. 120 mL 1 025 Active triamcinolone (Kenalog) 0.1 % creamIndications: Seborrheic dermatitis Apply topically if needed in the morning and at bedtime (pain and swelling). 30 g 2 025 Active ketoconazole (NIZOral) 2 % shampooIndication s:Seborrheic dermatitis Apply topically 2 (two) times a week. 120 mL 1 024 2024 Discontinued(R eorder (will not trigger notification to Pharmacy)) triamcinolone (Kenalog) 0.1 % creamIndications: Seborrheic dermatitis Apply topically if needed in the morning and at bedtime (pain and swelling). 30 g 2 024 2024 Discontinued(R eorder (will not trigger notification to Pharmacy)) Active Problems Problem Noted Date Diagnosed Date [...] referred to PT after ED visit, to [facility], has appointment on 09/17 Continue flexeril [...] Encounters Date Type Department Care Team Description 07/28/2024 Refill [facility] [address] [place], [place] [phone] Orly Clark MD 07/28/2024 Refill [facility] [address] [place], [place] [phone] Orly Clark MD 07/28/2024 Refill [facility] [address] [place], [place] [phone] Halina Mayberry MD Seborrheic dermatitis from Last 3 Months Immunizations Name Administration [...] Description 10/29/2024 10:00 AM EDT Office Visit [facility] ADULT DENTAL [address] [place] [address] Yovany, Ana [address] [place] [address] Health Maintenance Due Date Last Done Comments Alcohol/Substance Use Screening 2001 Family Planning (PISQ) 2004 Hepatitis C Screening 2007 DTaP/Tdap/Td Vaccines (1 - Tdap) 2008 Hepatitis A Vaccines (1 of 2 - Risk 2-dose series) 2008 Hepatitis B Vaccines (1 of 3 - 19+ 3-dose series) 2008 Dental X-Ray: Full Mouth 06/06/2023 06/05/2020 COVID-19 Vaccine (3 - season) 2024 11/21/2020, 10/31/2020 Influenza Vaccine (#1) 2024 06/19/2020 Pap Smear 04/01/2024 04/01/2021, 04/01/2021 Depression Screening 07/07/2024 07/07/2023, 07/07/19 SDOH Screening 07/07/2024 07/07/2023 Dental Oral Exam 10/29/2024 04/29/2024, 08/2021, 06/05/2020 Dental Prophylaxis 10/29/2024 04/29/2024, 09/22/2021 Tobacco Screening 04/29/2025 04/29/2024 Dental X-Ray: Bitewings 04/30/2025 04/29/20 24, 09/22/2021, 06/05/2020 Cervical Cancer Screening 04/01/2026 HPV/Cotest 04/01/2026 04/01/2021 Lipid Panel 11/08/2028 11/09/2023, 02/19, 10/21/2022, Additional history exists Zoster Vaccines (1 of 2) 2039 RSV [...] on patient's age to complete this topic Pneumococcal Vaccine: Pediatrics (0 to 5 Years) and At-Risk Patients (6 to 49) Years) Aged Out No longer eligible based on [...] PROTHROMBIN TIME-INR Routine 05/28/2024 12:58 PM EST PROPHYLAXIS - ADULT Routine 04/29/2024 8 :00 AM EST Dental calculus Gingival bleeding BITEWINGS - 4 RADIOGRAPHIC IMAGES Routine 04/29/2024 8:00 AM EST Dental calculus Gingival bleeding PERIODIC ORAL EVALUATION - ESTABLISHED PATIENT Routine 04/29/2024 8:00 AM EST LIPID PANEL, STANDARD Routine 11/09/2023 10:44 AM [...] Blood Count 7.0 4.8 - 10.8 X10*3/uL [facility] Red Blood Count 4.06(L) 4.20 - 5.50 X10*6/uL [facility] Hemoglobin 10.8(L) 12.0 - 16.0 g/dl [facility] Hematocrit 32.6(L) 37.0 - 47.0 % [facility] Mean Corpuscular Volume 80.3 80.0 - 98.0 fL [facility] Mean Corpuscular Hemoglobin 26.6(L) 27.0 - 33.0 pg [facility] Mean Corpuscular HGB Conc 33.1 31.0 - 35.0 g/dl [facility] Red Cell Distribution Width 12.9 11.0 - 16.0 % [facility] Platelet Count 173 160 - 400 X10*3/uL [facility] Mean Platelet Volume 10.9 9.4 - 12.3 fL [facility] Neutrophils Percent Auto 68.5 45 - 73 % [facility] Imm Gran Pct Auto 0.3 0.0 - 0.4 % [facility] Lymphocytes Percent Auto 23.2 20 - 40 % [facility] Monocytes Percent Auto 7.8 2 - 11 % [facility] Eosinophils Percent Auto 0.1 0 - 4 % [facility] Basophils Percent Auto 0.1 0 - 2 % [facility] NRBC Pct Auto 0.0 0.0 - 0.2 /100WBC [facility] Neutrophils Absolute Auto 4.8 2.0 - 8.3 x10*3/uL [facility] Imm Gran Abs Auto 0.02 0.00 - 0.03 X10*3/uL [facility] Lymphocytes Absolute Auto 1.6 1.2 - 4.9 X10*3/uL [facility] Monocytes Absolute Auto 0.6 0.1 - 1.2 X10*3/uL [facility] Eosinophils Absolute Auto 0.0 0.0 - 0.4 X10*3/uL [facility] Basophils Absolute Auto 0.0 0.0 - 0.2 X10*3/uL [facility] NRBC Abs Auto 0.000 0.0 - 0.012 X10*3/uL [facility] 06/07/2024 5:57 AM EST 06/07/2024 6:13 AM EST us Generic External Data Provider LAB BLOOD ORDERAB LES Final Result [facility] [address] [place] [address] [phone] * (ABNORMAL) Basic Metabolic Panel (06/07/2024 5:57 AM EST) Only the most recent of2 resultswithin the time period is included. Sodium 137 135 - 145 mmol/L [facility] Potassium 3.5 3.3 - 5.1 mmol/L [facility] Chloride 105 96 - 108 mmol/L [facility] Carbon Dioxide 25 22 - 29 mmol/L [facility] Anion Gap 11(L) 12 - 20 [facility] Urea Nitrogen (BUN) 10 9 - 16 mg/dL [facility] Creatinine, Serum 0.62 0.5 - 1.4 mg/dL [facility] Creatinine Clr Calc Pharmacy 107.7 [facility] Comment:Provided height and weight: 154.94 cm,63.049 kg.eGFR (calculated from the MDRD study equation) and eCrCl(calculated from the Cockcroft-Gault equation) are based ondifferent parameters and may not yield comparable results.If eCrCl result is absurd, please check patient'sheight/weight. Estimated Glomerular Filt Rate >60 [facility] Comment:Chronic Kidney Disea se: Estimated GFR < 60 mL/min/1.45g1Nxgmkm Kidney Disease: Estimated GFR < 15 mL/min/1.73m2 Glucose 76 60 - 115 mg/dL [facility] Calcium 8.7 8.4 - 10.2 mg/dL [facility] 06/07/2024 5:57 AM EST 06/07/2024 6:13 AM EST us Generic External Data Provider LAB BLOOD ORDERAB LES Final Result [facility] [address] [place] [address] [phone] * (ABNORMAL) Hemoglobin and Hematocrit (06/06/2024 3:18 PM EST) Hemoglobin 12.1 12.0 - 16.0 g/dl [facility] Hematocrit 36.6(L) 37.0 - 47.0 % [facility] 06/06/2024 3:18 PM EST 06/06/2024 3:21 PM EST us Generic External Data Provider LAB BLOOD ORDERAB LES Final Result [facility] [address] [place] [address] [phone] * Gross and Microscopic Level 3 (06/06/2024 12:18 PM EST) 06/06/2024 12:1 8 PM EST 06/06/2024 2:45 PM EST Narrative [facility] - 06/10/2024 2:21 PM EST ----- ------- Name: Shavonne Carrillo ? Age/Sex: 34/F ? : 1990 Unit#: [id number] ?? Attend Dr: Alex Tyler MD ?Re06/06/24 ?Status: DEP SDC ? Location: HO.SSS ?Disch: ? ----- ------- SPEC : [id number] ?RECD: 06/06/24 ? STATUS: ??SOUT ? REQ NUM: [id number] ? SAVI: 06/06/24 ? SUBM DR: Alex Tyler MD ? [...] distinct cysts, lesions or nodules are identified. ??Meat Packager sections are submitted in cassettes A1-A3. CEDS Copies To: ?? Halina Mayberry MD ?? [facility] ?? [address] ?? [place] [address] ?? [phone] ?? Alex Tyler MD ?? [facility] ?? [address] ?? [place] [address] ?? [phone] ? CONTINUED ON NEXT PAGE ----- ------- Name: Shavonne Carrillo ? Age/Sex: 34/F ? : 1990 Unit#: [id number] ?? Attend Dr: Alex Tyler MD ?Re06/06/24 ?Status: DEP [facility] ? Location: HO.SSS ?Disch: ? ----- ------- SPEC : [id number] ?RECD: 06/06/24-5 ? STATUS: ??SOUT ? REQ NUM: [id number] ? SAVI: 06/06/24-1218 ? SUBM DR: Alex Tyler MD ? ENTERED: ??06/06/24-1451 ?SP TYPE: Surgical ? OTHR : Halina Mayberry MD ? ORDERED: ??Gross Micro L3 ? ----- ------- Signed (signature on file) Randy Kahn MD 06/10/24 5543 ? ----- ------- ? END OF REPORT ? Generic External Data Provider LAB CYTOLOGY ORDE RABLES Final Result Performing Organization Address [facility] Co de Phone Number [facility] [address] [place] [address] [phone] * Type and screen (05/28/2024 1:25 PM EST) Blood Type OP [facility] Antibody Screen NEGATIVE [facility] 05/28/2024 1:25 PM EST 05/28/2024 1:58 PM EST Narrative [facility] - 05/28/2024 2:34 PM EST WITNESSED BY CRISTIANOING:Call Blood Bank (ext. [phone]) to band patient on admission.Type and Screen in effect until 2300 on [id number] expiration changed by ALEXANDRIA on 05/28/24Reason: PAT SPEC Generic External Data Provider LAB BLOOD BANK TE ST ORDERABLES Final Result Performing Organization Address [facility] de Phone Number [facility] [address] [place] [phone] * Partial Thromboplastin Time, Activated (APTT) (05/28/2024 12:58 PM EST) Partial Thromboplastin Time 31.9 26.0 - 36.8 SEC [facility] Comment:For information rega rding the monitoring of direct thrombininhibitors, please refer to Pharmacy. 05/28/2024 12:5 8 PM EST 05/28/2024 1:58 PM EST Generic External Data Provider LAB BLOOD ORDERAB LES Final Result Performing Organization Address [facility] Co de Phone Number [facility] [address] [place] [phone] * (ABNORMAL) Prothrombin Time-INR (05/28/2024 12:58 PM EST) Prothrombin Time 14.0(H) 10.9 - 12.4 SEC [facility] INTERNATIONAL NORM RATIO 1.2(H) 0.9 - 1.1 [facility] Comment:INTERNATIONAL NORMAL IZED RATIO (INR) [...] ORDERAB LES Final Result Performing Organization Address City/State/[facility] Co de Phone Number [facility] [address] [place] [phone] * (ABNORMAL) Lipid Panel, Standard (11/09/2023 10:44 AM EDT) Pathologist [facility] Triglycerides 91 <150 mg/dL [facility] Comment:Desirable Triglyceri de: less than 150 mg/dLBorderline High Triglyceride 150-199 mg/dLHigh Triglyceride: 200-499 mg/dLVery High Triglyceride: greater than or equal to 5OO mg/dL Cholesterol 187 <200 mg/dL [facility] Comment:Desirable Cholestero l: less than 200 mg/dLBorderline High Cholesterol: 200-239 mg/dLHigh Cholesterol: greater than 239 mg/dL LDL Cholesterol Calculated 129(H) <100 mg/dL [facility] Comment:Desirable LDL: less than 100 mg/dLNear Optimal/Above Optimal LDL: 110- 129 mg/dLBorderline High LDL: 130-159 mg/dLHigh LDL: 160-189 mg/dLVery High LDL: greater than or equal to 190 mg/dL HDL Cholesterol 40(L) >40 mg/dL [facility] Comment:Desirable HDL: great er than 40 mg/dL Note: This HDL assay may give artificially low results in patients with liver disease. 11/09/2023 10:4 4 AM EDT 11/09/2023 10:44 AM EDT us Generic External Data Provider LAB BLOOD ORDERAB LES Final Result [facility] [address] [place] [address] [phone] * THINPREP TIS PAP AND HPV mRNA E6/E7, CT/NG, TRICH (04/01/2021 10:20 AM EST) Chlamydia trachomatis RNA, TMA, Urogenital NOT DETECTED NOT DETECTED [facility] Clinical Information: None given [facility] COMMENT SEE COMMENT [facility] Comment: The analytical performance characteristics of this assay, when used to test SurePath(TM) specimens have been determined by [employer]. The modifications have not been cleared or approved by the FDA. This assay has been validated pursuant to the CLIA regulations and is used for clinical purposes. ?? For additional information, please refer to https://education.Mobiplex/faq/RLX586 (This link is being provided for information/ [...] has been evaluated with computer assisted technology. [facility] Nursing Teacher: SEE COMMENT [facility] Comment: NSS, CT(ASCP) CT screening location: [address] ??[phone] HPV nRNA E6/E7 Not Detected Not Detected [facility] Comment: Methodology: Daytime Caregiver-Mediated Amplification This assay detects E6/E7 viral messenger RNA (mRNA) from 14 high-risk HPV types (16,18,31,33,35,39,45,51,52,56,58,59,66,68). ? The analytical performance characteristics of this assay have been determined by [employer]. The modifications have not been cleared or approved by the FDA. This assay has been validated pursuant to the CLIA regulations and is used for clinical purposes. ?? For additional information, please refer to http://PlayerDuel.Mobiplex/faq/ZDN730n6 (This link if provided for information/ educational [...] of this assay have been determined by [employer]. The modifications have not been cleared or approved by the FDA. This assay has been validated pursuant to the CLIA regulations and is used for clinical purposes. ?? For additional information, please refer to http://PlayerDuel.Mobiplex/ faq/Trichomonastma (This link is being provided for information/ educational purposes only.) ?? 04/01/2021 10:2 0 AM EST Halina Uriostegui MD LAB PATHOLOGY ORDERAB LES Final Result [facility] [address] * Pap Smear (04/01/2021 12:00 AM EST) Swab Halina Uriostegui MD LAB CYTOLOGY ORDERABL ES Final Result [facility] [address], [place] [address] * HIV 1/2 ANTIGEN/ANTIBODY,FOURTH GENERATION W/RFL (05/29/2020 9:10 AM EST) HIV-1/2 ANTIGEN AND ANTIBODIES, 4TH GENERATION W/ REFLEX NON-REACT [facility]MA NON-REACT [facility] Comment: HIV-1 antigen and HIV-1/HIV-2 [...] ? For additional information please refer to http://education.Mobiplex/faq/QUN885 (This link is being provided for informational/ educational purposes only.) ? The performance of this assay has not been clinically validated in patients less than 2 years old. ?? 05/29/2020 9:10 AM EST Halina Uriostegui MD LAB BLOOD ORDERABLES Final Result Performing Organization Address City/State/[facility] Co de Phone Number [facility] [address] from Last 3 Months or Most Recently Relevant to Health Maintenance Insurance [facility] FULL (MEDICAID) Care Teams Marketing Writer Relationship Specialty Start Date End Date Halina Mayberry MD [address] [place] [address] PCP - General Family Medicine 06/05/20
--- OUTSIDE RECORDS SUMMARY | 2024-08-06 15:44 | XMS_ITS | Encounter Summary ---
Author Organization [employer] Address [address] [facility] [address] [place] [address] Care Team Providers Care Plating Machine Operator Name Role Phone Halina Mayberry MD Primary Care Provide r Reason for Visit * Reason Onset Date Comments Med Refill 07/28/2024 Encounter Details Date Type Department Care Team (Late st Contact Info) Description 07/28/2024 Refill [facility] [address] [place] [address] Orly Clark MD [address] [place] [address] Social History Tobacco Use Types Packs/Day Years [...] is your housing situation today? I have doyrs galindo 07/07/[address] you [...] Description 10/29/2024 10:00 AM EDT Office Visit [facility] [address] [place] [address] Yovany, Ana [address] [place] [address] documented as of this encounter Visit Diagnoses Not on filedocumented in this encounter Additional Health Concerns Assessment Noted Time PHQ-9 Depression Total Score: 0 07/07/19 24 9:51 AM EST documented as of this encounter Care Teams Plating Machine Operator Relationship Specialty Start Date End Date Halina Mayberry MD [address] [place] [address] PCP - General Family Medicine 06/05/20 documented as of this encounter
--- OUTSIDE RECORDS SUMMARY | 2024-08-06 15:44 | XMS_ITS | Encounter Summary ---
Author Organization [employer] Address 75 [facility] 7 [place] [address] Care Team Providers Care Special Investigation Unit Investigator Name Role Phone Halina Mayberry MD Primary Care Provide r Reason for Visit * Reason Onset Date Comments Med Refill 07/28/2024 Encounter Details Date Type Department Care Team (Late st Contact Info) Description 07/28/2024 Refill [facility] [address] [place] [address] Halina Mayberry MD [address] [place] [address] Seborrheic dermatitis Social History Tobacco Use Types Packs/Day Years [...] Description 10/29/2024 10:00 AM EDT Office Visit [facility] ADULT D[facility] [address] [place] [address] Yovany, Ana [address] [place] [address] documented as of this encounter Visit Diagnoses Diagnosis Seborrheic dermatitis Unspecified seborrheic dermatitis documented in this encounter Additional Health Concerns Assessment Noted Time PHQ-9 Depression Total Score: 0 07/07/19 24 9:51 AM EST documented as of this encounter Care Teams Special Investigation Unit Investigator Relationship Specialty Start Date End Date Halina Mayberry MD [address] [place] [address] PCP - General Family Medicine 06/05/20 documented as of this encounter
--- OUTSIDE RECORDS SUMMARY | 2024-08-06 15:45 | XMS_ITS | Encounter Summary ---
Author Organization [employer] Address [address] [facility] [address]t [place] [address] Care Team Providers Care Dude Wrangler Name Role Phone Halina Mayberry MD Primary Care Provide r Encounter Details Date Type Department Care Team (Late Contact Info) Description 06/13/2022 Telephone [facility] MED[facility]INE [address] [place] [address] Halina Mayberry MD [address] [place] [address] Social History Tobacco Use Types Packs/Day Years [...] Description 10/29/2024 10:00 AM EDT Office Visit [facility] ADULT DENTAL [address] [place] [address] Ana Pedroza [address] [place] [address] documented as of this encounter Visit Diagnoses Not on filedocumented in this encounter Care Teams Dude Wrangler Relationship Specialty Start Date End Date Halina Mayberry MD [address] [place] [address] PCP - General Family Medicine 06/05/20 documented as of this encounter
== END 2024-08-06 13:53 | disposition home or self-care (01) ==
LOC: HO.HBS 13:24
PROVIDERS: PCP Internal Medicine; Visit Provider Physician Assistant Surgical
DX: Z98.890 Other specified postprocedural states (principal)
CPT/HCPCS: 99024

== ENCOUNTER → 2024-08-06 13:23 | Outpatient (BNVA) | payer OTHER, SELFPAY | PROVIDERS: PCP Internal Medicine; Visit Provider Physician Assistant Surgical | DX: Z48.817 Encounter for surgical aftercare following surgery on the skin and subcutaneous tissue (principal); Z98.890 Other specified postprocedural states | CPT/HCPCS: 99212 ==

== ENCOUNTER 2024-09-06 11:25 | Outpatient (AMB) | payer OTHER, SELFPAY ==
--- NOTE | 2024-09-06 11:33 | A.OFFVIS_ITS ---
VS Expanded 09/06/24 11:45 BP 110/69 Blood Pressure Location Rt brachial Blood Pressure Position Sitting Pulse 82 Pulse Source Pulse Oximeter Temp 97.7 F Temperature Source Temporal Artery Scan Pulse Oximetry 98 Oxygen Delivery Method Room Air Height 5 ft 1 in Weight 144 lb 9.6 oz BMI 27.3 Body Fat % 34.5 Body Fat Mass 49.8 Fat Free Mass 94.6 Visceral Fat Rating 5.0 Body Water % 46.9 Body Water Mass 67.6 Muscle Mass/Score 89.8 Basal Metabolic Rate/Score 1,317 Intake Visit Reasons: (OV) s/p Panniculectomy 06/06/24 Allergies No Known Allergies Allergy (Verified 09/06/24 11:38) HPI Comments Details: Patient is a pleasant 34-year-old female who returns to the office today in follow-up. She is 2 months post panniculectomy performed on 06/06/2024. Overall she is doing well. She offers no significant complaints at today's visit. She is doing very well. Incision has healed nicely. [facility] Medical History Bipolar disorder Migraines COVID-19 BMI 37.0-37.9, adult Anxiety Depression Insomnia PCOS (polycystic ovarian syndrome) Morbid obesity Surgical History S/P laparoscopic sleeve gastrectomy Hx of tubal ligation Family History Mother Cancer Father No problems noted. Daughter No problems noted. Son ADHD Son No problems noted. Son No problems noted. 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 Doing very well. She may exercise without restriction. Return to clinic in February for her yearly follow-up
[2024-09-06 11:45] VITALS: BP 110/69; PULSE 82; TEMP 36.5; O2SAT 98; BMI 27.3
--- OUTSIDE RECORDS SUMMARY | 2024-09-06 12:35 | XMS_ITS | Encounter Summary ---
Author Organization [employer] Address 75 [facility] [address]t [place] [address] Care Team Providers Care Truer Pinion And Wheel Name Role Phone Halina Mayberry MD Primary Care Provide r Encounter Details Date Type Department Care Team (Late Contact Info) Description 06/13/2022 Telephone [facility] MED[facility] [address] [place] [address] Halina Mayberry MD [address] [place] [address] Social History Tobacco Use Types Packs/Day Years [...] Description 10/29/2024 10:00 AM EDT Office Visit [facility] ADULT DENTAL [address] [place] [address] Ana Pedroza [address] [place] [address] documented as of this encounter Visit Diagnoses Not on filedocumented in this encounter Care Teams Truer Pinion And Wheel Relationship Specialty Start Date End Date Halina Mayberry MD [address] [place] [address] PCP - General Family Medicine 06/05/20 documented as of this encounter
--- OUTSIDE RECORDS SUMMARY | 2024-09-06 12:35 | XMS_ITS | Clinical Summary ---
Author Organization [employer] Address [address] [facility] 7[address] [place] [address] Care Team Providers Care Assistant Women'S Rowing Coach Name Role Phone Halina Mayberry MD Primary [...] affected area prn pain 113 g 09/15/19 24 Active Additional Information Patient not taking.Reported on 04/29/2024 diphenhydrAMINE (BENADryl) 25 MG tablet Take 1 tablet (25 mg) by mouth if needed at bedtime for itching. 30 tablet 2 10/13/19 24 Active cetirizine (ZyrTEC) 10 MG tablet TAKE 1 TABLET BY MOUTH EVERY DAY 90 tablet 1 04/15/20 Active OXcarbazepine (Trileptal) 300 MG tablet TAKE 3 TABLET BY MOUTH EVERY NIGHT AT BEDTIME TAKE EXTRA 3RD TABLET NEEDED MENSTRUAL PERIOD/ PMS 04/11/20 Active buPROPion SR (Wellbutrin SR) 100 MG 12 hr tablet Take 200 mg by mouth Once per day. 04/11/20 24 Active ketoconazole (NIZOral) 2 % shampooIndications :Seborrheic dermatitis Apply topically 2 (two) times a week. 120 mL 1 07/30/19 25 Active triamcinolone (Kenalog) 0.1 % creamIndications:S eborrheic dermatitis Apply topically if needed in the morning and at bedtime (pain and swelling). 30 g 2 07/30/19 25 Active Active Problems Problem Noted Date Diagnosed [...] referred to PT after ED visit, to [facility], has appointment on 09/17 Continue flexeril [...] Type Department Care Team Description 07/28/2024 Refill [facility] CH[facility] MED & PEDS [address] [place] [address] Orly Clark MD 07/28/2024 Refill [facility] WALK-IN CENTER [address] [place] [address] Orly Clark MD 07/28/2024 Refill [facility] MEDICINE [address] [place] [address] Halina Mayberry MD Seborrheic dermatitis from Last [...] Description 10/29/2024 10:00 AM EDT Office Visit [facility] ADULT DENTAL [address] [place], [place] [id number] Yovany, Ana [address] [place] [address] Health Maintenance Due Date Last Done Comments [...] Full Mouth 06/06/2023 06/05/2020 COVID-19 Vaccine ( season) 2024 11/21/2020, 10/31/2020 Influenza Vaccine (#1) 2024 06/19/2020 Pap Smear 04/01/2024 04/01/2021, 04/01/2021 Diabetes: Hemoglobin A1C 05/10/202411/08/ 024, 07/07/2023, 03/06/2023, Additional history exists Depression Screening 07/07/2024 07/07/2023, 07/07/19 24 SDOH Screening 07/07/2024 07/07/2023 Dental Oral Exam 10/29/2024 04/29/2024, 08/2021, 06/05/2020 Dental Prophylaxis 10/29/2024 04/29/2024, 09/22/2021 Lipid Panel 11/08/2024 11/09/2023, 02/19, 10/21/2022, Additional history exists Tobacco Screening 04/29/2025 04/29/2024 Dental X-Ray: Bitewings 04/30/2025 04/29/20, 09/22/2021, 06/05/2020 Eye Exam 05/02/2025 05/02/2023, 04/21, [...] Procedure Name Priority Date/Time Associated Diagnosis Comments PROPHYLAXIS - ADULT Routine 04/29/2024 8 :00 AM EST Dental calculus Gingival bleeding BITEWINGS - 4 RADIOGRAPHIC IMAGES Routine 04/29/2024 8:00 AM EST Dental calculus Gingival bleeding PERIODIC ORAL EVALUATION - ESTABLISHED PATIENT Routine 04/29/2024 8:00 AM EST HEMOGLOBIN A1C Routine 11/09/2023 10:44 [...] Recently Relevant to Health Maintenance Results * Hemoglobin A1c (11/09/2023 10:44 AM EDT) Hemoglobin A1c 5.0 <6.0 % [facility] Comment:Hemoglobin A1C Refer ence Range Adults: 4.8 - 6.0 % Non diabetic: < 6.0 % Goal: < 7.0 %Additional Action Suggested: > 8.0 %Note: Hemoglobin A1c results are invalid for patients with abnormal amounts of HbF. Blood transfusions may impact the HbA1c concentration in the patient sample. Estimated Average Glucose 97 mg/dL [facility] Comment:eAG = Estimated ave rage glucose which is %A1C expressed asaverage glucose, using the formula of the B3E-QrwtpukNhvexrm Glucose study (ADAG), Diabetes Care, Vol.31,#8,Dec. 2007 11/09/2023 10:4 4 AM EDT 11/09/2023 10:44 AM EDT us Generic External Data Provider LAB BLOOD ORDERAB LES Final Result [facility] [address] [place] [phone] * (ABNORMAL) Lipid Panel, Standard (11/09/2023 10:44 AM EDT) Triglycerides 91 <150 mg/dL [facility] Comment:Desirable Triglyceri de: less than 150 mg/dLBorderline High Triglyceride 150-199 mg/dLHigh Triglyceride: 200-499 mg/dLVery High Triglyceride: greater than or equal to 5OO mg/dL Cholesterol 187 <200 mg/dL [facility] Comment:Desirable Cholestero l: less than 200 mg/dLBorderline High Cholesterol: 200-239 mg/dLHigh Cholesterol: greater than 239 mg/dL LDL Cholesterol Calculated 129(H) <100 mg/dL [facility] Comment:Desirable LDL: less than 100 mg/dLNear Optimal/Above Optimal LDL: 110- 129 mg/dLBorderline High LDL: 130-159 mg/dLHigh LDL: 160-189 mg/dLVery High LDL: greater than or equal to 190 mg/dL HDL Cholesterol 40(L) >40 mg/dL [facility] Comment:Desirable HDL: great er than 40 mg/dL Note: This HDL assay may give artificially low results in patients with liver disease. 11/09/2023 10:4 4 AM EDT 11/09/2023 10:44 AM EDT us Generic External Data Provider LAB BLOOD ORDERAB LES Final Result [facility] [address] [place] [phone] * THINPREP TIS PAP AND HPV mRNA E6/E7, CT/NG, TRICH (04/01/2021 10:20 AM EST) Chlamydia trachomatis RNA, TMA, Urogenital NOT DETECTED NOT DETECTED [facility] Clinical Information: None given [facility] COMMENT [facility] Comment: The analytical performance characteristics of this assay, when used to test SurePath(TM) specimens have been determined by [facility]. The modifications have not been cleared or approved by the FDA. This assay has been validated pursuant to the CLIA regulations and is used for clinical purposes. ?? For additional information, please refer to https://education.AesRx.MyQuoteApp/faq/QMO612 (This link is being provided for information/ [...] has been evaluated with computer assisted technology. [facility] [employer] Manager: [facility] Comment: NSS, CT(ASCP) CT screening location: [address] ??[id number] HPV nRNA E6/E7 Not Detected Not Detected [facility] Comment: Methodology: Play Back Operator-Mediated Amplification This assay detects E6/E7 viral messenger RNA (mRNA) from 14 high-risk HPV types (16,18,31,33,35,39,45,51,52,56,58,59,66,68). ? The analytical performance characteristics of this assay have been determined by [employer]. The modifications have not been cleared or approved by the FDA. This assay has been validated pursuant to the CLIA regulations and is used for clinical purposes. ?? For additional information, please refer to http://TARDIS-BOX.com.BrewDog/faq/ZIO733u8 (This link if provided for information/ educational [...] of this assay have been determined by [employer]. The modifications have not been cleared or approved by the FDA. This assay has been validated pursuant to the CLIA regulations and is used for clinical purposes. ?? For additional information, please refer to http://TARDIS-BOX.com.BrewDog/ faq/Trichomonastma (This link is being provided for information/ educational purposes only.) ?? 04/01/2021 10:2 0 AM EST Halina Uriostegui MD LAB PATHOLOGY ORDERAB LES Final Result Performing Organization Address [facility]/ZIP Co de Phone Number [facility] [address] * Pap Smear (04/01/2021 12:00 AM EST) Swab Halina Uriostegui MD LAB CYTOLOGY ORDERABL ES Final Result Performing Organization Address [facility] Co de Phone Number [facility] [address] [facility], [facility], [place] [address] * HIV 1/2 ANTIGEN/ANTIBODY,FOURTH GENERATION W/RFL (05/29/2020 [...] ? For additional information please refer to http://education.AesRx.MyQuoteApp/faq/PHI316 (This link is being provided for informational/ educational purposes only.) ? The performance of this assay has not been clinically validated in patients less than 2 years old. ?? 05/29/2020 9:10 AM EST Halina Uriostegui MD LAB BLOOD ORDERABLES Final Result Performing Organization Address [facility] Co de Phone Number [facility] [address] from Last 3 Months or Most Recently Relevant to Health Maintenance Insurance [facility] FULL (MEDICAID) Care Teams Assistant Women'S Rowing Coach Relationship Specialty Start Date End Date Halina Mayberry MD [address] [place] [phone] PCP - General Family Medicine 06/05/20
--- OUTSIDE RECORDS SUMMARY | 2024-09-06 12:35 | XMS_ITS | Encounter Summary ---
Author Organization [employer] Address [address] [facility] 7 [place] [address] Care Team Providers Care Supply Planner Name Role Phone Halina Mayberry MD Primary Care Provide r Encounter Details Date Type Department Care Team (Latest Contact Info) Description 09/22/2021 Abstract [facility] CONVERSIONS Dental, Provider, DDS Social History [...] Description 10/29/2024 10:00 AM EDT Office Visit [facility] ADULT DENTAL [address] [place] [address] Yovany, Ana [address] [place] [address] documented as of this encounter Visit Diagnoses Not on filedocumented in this encounter Care Teams Supply Planner Relationship Specialty Start Date End Date Halina Mayberry MD [address] [place] [address] PCP - General Family Medicine 06/05/20 documented as of this encounter
--- OUTSIDE RECORDS SUMMARY | 2024-09-06 12:35 | XMS_ITS | Encounter Summary ---
Author Organization [employer] Address [address] [facility] [address] [place] [address] Care Team Providers Care Bus Greaser Name Role Phone Halina Mayberry MD Primary Care Provide r Reason for Visit * Reason Onset Date Comments Med Refill 07/28/2024 Encounter Details Date Type Department Care Team (Late st Contact Info) Description 07/28/2024 Refill [facility] WALK-IN CENTER [address] [place] [address] Orly Clark MD [address] [place] [address] Social History Tobacco Use Types Packs/Day Years [...] 10:00 AM EDT Office Visit [facility] ADULT DENTAL [address] [place] [address] Yovany, Ana [address] [place] [address] documented as of this encounter Visit Diagnoses Not on filedocumented in this encounter Additional Health Concerns Assessment Noted Time PHQ-9 Depression Total Score: 0 07/07/19 24 9:51 AM EST documented as of this encounter Care Teams Bus Greaser Relationship Specialty Start Date End Date Halina Mayberry MD [address] [place] [address] PCP - General Family Medicine 06/05/20 documented as of this encounter
--- OUTSIDE RECORDS SUMMARY | 2024-09-06 12:35 | XMS_ITS | Encounter Summary ---
Author Organization [employer] Address [address] [facility] [address] [place] [address] Care Team Providers Care Personal Care Aide Name Role Phone Halina Mayberry MD Primary Care Provide r Reason for Visit * Reason Comments Med Change Request Encounter Details Date Type Department Care Team ([facility] st Contact Info) Description 09/15/2023 Refill [facility] MEDICINE [address] [place] [address] Yue House MD [address] [place] [address] Social History Tobacco Use Types Packs/Day Years [...] 10/29/2024 10:00 AM EDT Office Visit [facility] ADULT DENTAL [address] [place] [address] Yovany, Ana [address] [place] [address] documented as of this encounter Visit Diagnoses Not on filedocumented in this encounter Additional Health Concerns Assessment Noted Time PHQ-9 Depression Total Score: 0 07/07/19 24 9:51 AM EST documented as of this encounter Care Teams Personal Care Aide Relationship Specialty Start Date End Date Halina Mayberry MD [address] [place] [address] PCP - General Family Medicine 06/05/20 documented as of this encounter
--- OUTSIDE RECORDS SUMMARY | 2024-09-06 12:35 | XMS_ITS | Encounter Summary ---
Author Organization [employer] Address [address] [facility] 7 [place] [address] Care Team Providers Care Real Estate Investment Analyst Name Role Phone Halina Mayberry MD Primary Care Provide r Reason for Visit * Reason Onset Date Comments Med Refill 07/28/2024 Encounter Details Date Type Department Care Team (Late st Contact Info) Description 07/28/2024 Refill [facility] CHC MED & PEDS [address] [place] [address] Orly Clark MD [address] [place] [address] Social History Tobacco Use Types Packs/Day Years [...] 10:00 AM EDT Office Visit [facility] ADULT DENTAL [address] [place] [address] Yovany, Ana [address] [place] [address] documented as of this encounter Visit Diagnoses Not on filedocumented in this encounter Additional Health Concerns Assessment Noted Time PHQ-9 Depression Total Score: 0 07/07/19 24 9:51 AM EST documented as of this encounter Care Teams Real Estate Investment Analyst Relationship Specialty Start Date End Date Halina Mayberry MD [address] [place] [address] PCP - General Family Medicine 06/05/20 documented as of this encounter
== END 2024-09-06 12:03 | disposition home or self-care (01) ==
LOC: HO.HBS 11:25
PROVIDERS: PCP Internal Medicine; Visit Provider Physician Assistant Surgical
DX: Z98.890 Other specified postprocedural states (principal)
CPT/HCPCS: 99024

== ENCOUNTER → 2024-09-06 11:25 | Outpatient (BNVA) | payer OTHER, SELFPAY | PROVIDERS: PCP Internal Medicine; Visit Provider Physician Assistant Surgical | DX: Z98.890 Other specified postprocedural states (principal) | CPT/HCPCS: 99212 ==